=== PATIENT | female | born 1980 | race Caucasian/White ===

== ENCOUNTER 2017-01-20 11:53 | Day surgery (SDC) | payer MEDICARE, OTHER ==
[2017-01-17 11:42] VITALS: BMI 41.1
[~2017-01-20 11:53] MED LIST: LACTATED RINGERS 1,000 ML IV SCH
[2017-01-20] MEDS ORDERED: LIDOCAINE 1% 20 ML VIAL (10MG/ML) FOR IV START INTRADERMA ONE (12:08)
[2017-01-20] MEDS ORDERED: LACTATED RINGERS 1,000 ML IV ONE (12:08)
[2017-01-20 12:12] VITALS: RESP 18; TEMP 98
[2017-01-20] MEDS ORDERED: PROPOFOL 10 MG/ML 20 ML VIAL IV ONE (12:34)
[2017-01-20 12:56] VITALS: BP 131/78; PULSE 65
--- NOTE | 2017-01-20 13:00 | P.PCN ---
Date of Procedure: 01/20/17 Procedure(s) Performed: Procedure: Colonoscopy and biopsy. Preoperative diagnosis: Worsening diarrhea. Postoperative diagnosis: Exam of the colon and terminal ileum within normal limits. Preparation: HalfLytely prep. Sedation: Was provided by anesthesia. Brief clinical history: The patient is a 36-year-old female with history of irritable bowel syndrome with diarrhea. She was evaluated in our office earlier this month because of worsening of her symptoms. She has been having left lower quadrant pains, crampy in nature, intermittent over the day with 4-5 loose/watery bowel movements with urgency. No rectal bleeding. This evaluation is to assess for inflammatory bowel disease or other pathology. Procedure: With the patient on her left lateral decubitus position and after informed consent and adequate sedation, the perianal area was inspected and it did not show any fissures or fistulas. There were no masses felt on digital rectal examination. The Olympus CFQ 160L video colonoscope was then inserted in the rectum in the usual fashion and advanced to the cecum. I intubated the ileocecal valve and examined the terminal ileum. Terminal ileum and colon appeared healthy with no edema, erythema, friability, ulceration, exudation or spontaneous bleeding. No polyps or tumors were seen. No obvious diverticular disease. I obtained biopsies from the terminal ileum and right colon and then I retroflexed the endoscope in the rectum before it was withdrawn. The patient tolerated the procedure well. Plan: The patient was reassured. Will await biopsy results. She is scheduled to follow-up in the office in the next couple weeks and we would keep you updated on her progress.
== END 2017-01-20 13:28 | disposition home or self-care (01) ==
LOC: ORWHC2ENDO 11:53
DX: R19.7 Diarrhea, unspecified (principal); R10.32 Left lower quadrant pain; K21.9 Gastro-esophageal reflux disease without esophagitis; Z87.19 Personal history of other diseases of the digestive system; I10 Essential (primary) hypertension; Z72.0 Tobacco use; G40.909 Epilepsy, unspecified, not intractable, without status epilepticus; Z79.899 Other long term (current) drug therapy; Z88.8 Allergy status to other drugs, medicaments and biological substances
CPT/HCPCS: 81025; 88305; 45380; J2704

== ENCOUNTER → 2017-01-22 | Outpatient (CLI) | payer MEDICARE, OTHER ==
--- NOTE | 2017-01-23 07:21 | US ---
EXAMINATION TYPE: US thyroid st tissue head/neck DATE OF EXAM: 01/22/2017 4:48 PM COMPARISON: NONE CLINICAL HISTORY: Goiter E04.9. Pt states abnormal MRI at outside facility GLAND SIZE: Right Lobe: 6.3 x 1.3 x 2.3 cm Overall Parenchyma: heterogenous Left Lobe: 6.5 x 1.7 x 2.6 cm Overall Parenchyma: heterogeneous Isthmus Thickness: 0.4 cm NODULES RIGHT: # of nodules measured on right: 0 LEFT: # of nodules measured on left: 0 ISTHMUS: # of nodules measured in the isthmus: 0 Bilateral neck scanned, no evidence of lymphadenopathy. Heterogeneous gland bilaterally with no evidence of nodules bilaterally IMPRESSION: No discrete thyroid nodule.
== END | disposition home or self-care (01) ==
LOC: RADUSWWP 16:38
PROVIDERS: ATTEND Psychiatry & Neurology Neurology
DX: E04.9 Nontoxic goiter, unspecified (principal)
CPT/HCPCS: 76536

== ENCOUNTER 2017-09-23 14:05 | Emergency (ER) | payer MEDICARE, OTHER ==
[2017-09-23 14:17] VITALS: BP 135/92; PULSE 90; RESP 18; TEMP 98.7
--- NOTE | 2017-09-23 14:34 | XR ---
EXAMINATION TYPE: XR hand complete RT DATE OF EXAM: 09/23/2017 CLINICAL HISTORY: pain TECHNIQUE: Frontal, lateral and oblique images of the right hand are obtained. COMPARISON: None. FINDINGS: There is no acute fracture/dislocation evident. The joint spaces appear within normal limi ts. Moderate dorsal soft tissue swelling. IMPRESSION: There is no acute fracture or dislocation ICD 10 NO FRACTURE, INITIAL EVALUATION
--- NOTE | 2017-09-23 14:39 | ED ---
General Adult HPI - General Chief complaint: Extremity Injury, Upper Stated complaint: Hand Injury Time Seen by Provider: 09/23/17 14:19 Source: patient, RN notes reviewed Mode of arrival: ambulatory Limitations: no limitations - History of Present Illness Initial comments: patient 36-year-old female who presents emergency room today with a chief complaint of injury to the right hand that occurred yesterday. Patient does admit that the trunk was accidentally closed on her right hand. Patient states she is right-handed. Has had increased pain swelling to the area. Patient denies any other injury or complaint. Patient denies any recent fever, chills, shortness of breath, chest pain, back pain, abdominal pain, nausea or vomiting, numbness or tingling, headaches or visual changes, or any other complaints. - Related Data Home Medications Medication Instructions Recorded Confirmed Lisinopril [Prinivil] 10 mg PO HS 07/15/16 01/17/17 Lurasidone HCl [Latuda] 120 mg PO HS 07/15/16 01/17/17 ALPRAZolam [Xanax] 0.5 mg PO BID PRN 08/27/16 01/17/17 Butalb/APAP/Caff 50-325-40Mg 1 tab PO DAILY PRN 08/27/16 01/17/17 [Fioricet 50-325-40] lamoTRIgine [LaMICtal Xr] 200 mg PO HS 10/17/16 01/17/17 Dicyclomine [Bentyl] 20 mg PO QID 01/17/17 01/17/17 Omeprazole [PriLOSEC] 20 mg PO AC-BRKFST 01/17/17 01/17/17 Previous Rx's Medication Instructions Recorded Ibuprofen [Motrin] 800 mg PO Q6HR #30 tab 09/23/17 Allergies Allergy/AdvReac Type Severity Reaction Status Date / Time divalproex sodium Allergy Rash/Hives Verified 09/23/17 14:17 [From Depakote] cortisone AdvReac causes Verified 09/23/17 14:17 increased pain Review of Systems ROS Statement: Those systems with pertinent positive or pertinent negative responses have been documented in the HPI. ROS Other: All systems not noted in ROS Statement are negative. Past Medical History Past Medical History: Seizure Disorder Additional Past Medical History / Comment(s): migraines, pseudo tumors, lymes disease, stress seizure History of Any Multi-Drug Resistant Organisms: MRSA Date of last positivie culture/infection: 2001 MDRO Source:: head Past Surgical History: Section Additional Past Surgical History / Comment(s): right foot, right shoulder, Past Anesthesia/Blood Transfusion Reactions: Motion Sickness Past Psychological History: Anxiety, Bipolar Smoking Status: Current every day smoker Past Alcohol Use History: Occasional Past Drug Use History: None Reported - Past Family History Mother Family Medical History: No Reported History General Exam - General Exam Comments Initial Comments: General: The patient is awake and alert, in no distress, and does not appear acutely ill. Neck: The neck is supple, there is no tenderness or JVD. Cardiovascular: There is a regular rate and rhythm. No murmur, rub or gallop is appreciated. Respiratory: Lungs are clear to auscultation, respirations are non-labored, breath sounds are equal. No wheezes, stridor, rales, or rhonchi. Musculoskeletal: patient does have moderate swelling to the right hand. Tender to palpation over the first through fourth metacarpals. Sensation are intact. Shows decreased range motion due to pain. No tenderness to the right wrist. Tenderness down to the right digits. Neurological: A&O x 3. CN II-XII intact, There are no obvious motor or sensory deficits. Coordination appears grossly intact. Speech is normal. Skin: Skin is warm and dry and no rashes or lesions are noted. Psychiatric: Normal mood and affect. Limitations: no limitations Course Vital Signs 09/23/17 14:16 Temperature 98.7 F Pulse Rate 90 Respiratory 18 Rate Blood Pressure 135/92 O2 Sat by Pulse 98 Oximetry Medical Decision Making - Medical Decision Making x-rays negative for any acute fractures patient advised to continue to ice elevate and use for pain. Advised follow-up family doctor or orthopedics in 7- 10 days for repeat x-rays if symptoms persist. Advised return to emergency room if any symptoms increase or worsen or for Disposition Clinical Impression: Hand contusion Disposition: HOME SELF-CARE Condition: Good Instructions: Contusion in Adults (ED) Additional Instructions: Please continue to ice elevate the affected area as discussed. Please continue with ibuprofen for pain. Please return to emergency room symptoms increase or worsen. Please follow-up with family doctor or orthopedics for repeat x-rays in 7-10 days if symptoms persist. Prescriptions: Ibuprofen [Motrin] 800 mg PO Q6HR #30 tab Referrals: None,Stated [Primary Care Provider] - 1-2 days Bradly Ortiz MD [STAFF PHYSICIAN] - 1-2 days Time of Disposition: 14:37
== END 2017-09-23 14:46 | disposition home or self-care (01) ==
LOC: EC 14:05
DX: S60.221A Contusion of right hand, initial encounter (principal); F31.9 Bipolar disorder, unspecified; F17.200 Nicotine dependence, unspecified, uncomplicated; Z86.14 Personal history of Methicillin resistant Staphylococcus aureus infection; Z86.69 Personal history of other diseases of the nervous system and sense organs; Z79.899 Other long term (current) drug therapy; Z88.8 Allergy status to other drugs, medicaments and biological substances; W23.0XXA Caught, crushed, jammed, or pinched between moving objects, initial encounter
CPT/HCPCS: 99283

== ENCOUNTER 2019-01-30 14:45 | Inpatient (IN) | payer MEDICARE, MEDICAID ==
--- NOTE | 2019-01-30 15:03 | ED ---
General Adult HPI - General Chief complaint: Psychiatric Symptoms Stated complaint: Suicidal Time Seen by Provider: 01/30/19 14:45 Source: patient, RN notes reviewed Mode of arrival: ambulatory Limitations: no limitations - History of Present Illness Initial comments: This is a 38-year-old female who presents emergency Department with a past medical history significant for bipolar and fibromyalgia. Patient comes in stating for about the last week been much more depressed than normal. Patient states again thinking about suicide. Patient states in the past she has had multiple attempts of suicide and usually involving pills. Patient states she did not want to get to that point today and she did not take any pills did not do any alcohol and denies any illegal drugs. Patient states more recently she has lost her disability and also was turned down to have an supervise visits with her daughter and this time put him into a more depressed state. Patient denies any physical complaints today. Patient has any headache patient denies chest pain difficulty breathing shortness of breath. Patient denies any abdominal pain. Patient denies any nausea vomiting. Patient denies any fever chills. - Related Data Home Medications Medication Instructions Recorded Confirmed Lisinopril [Prinivil] 10 mg PO HS 07/15/16 01/17/17 Lurasidone HCl [Latuda] 120 mg PO HS 07/15/16 01/17/17 ALPRAZolam [Xanax] 0.5 mg PO BID PRN 08/27/16 01/17/17 Butalb/APAP/Caff 50-325-40Mg 1 tab PO DAILY PRN 08/27/16 01/17/17 [Fioricet 50-325-40] lamoTRIgine [LaMICtal Xr] 200 mg PO HS 10/17/16 01/17/17 Dicyclomine [Bentyl] 20 mg PO QID 01/17/17 01/17/17 Omeprazole [PriLOSEC] 20 mg PO AC-BRKFST 01/17/17 01/17/17 Previous Rx's Medication Instructions Recorded Ibuprofen [Motrin] 800 mg PO Q6HR #30 tab 09/23/17 Allergies Allergy/AdvReac Type Severity Reaction Status Date / Time divalproex sodium Allergy Rash/Hives Verified 01/30/19 15:57 [From Depakote] cortisone AdvReac causes Verified 01/30/19 15:57 increased pain Review of Systems ROS Statement: Those systems with pertinent positive or pertinent negative responses have been documented in the HPI. ROS Other: All systems not noted in ROS Statement are negative. Past Medical History Past Medical History: Seizure Disorder Additional Past Medical History / Comment(s): migraines, pseudo tumors, lymes disease, stress seizure History of Any Multi-Drug Resistant Organisms: MRSA Date of last positivie culture/infection: 2001 MDRO Source:: head Past Surgical History: Section Additional Past Surgical History / Comment(s): right foot, right shoulder, Past Anesthesia/Blood Transfusion Reactions: Motion Sickness Past Psychological History: Anxiety, Bipolar Smoking Status: Current every day smoker Past Alcohol Use History: Occasional Past Drug Use History: Marijuana - Past Family History Mother Family Medical History: No Reported History General Exam - General Exam Comments Initial Comments: GENERAL: Patient is well-developed and well-nourished. Patient is nontoxic and well- hydrated and is in no acute distress. ENT: Neck is soft and supple. No significant lymphadenopathy is noted. Oropharynx is clear. Moist mucous membranes. Neck has full range of motion without eliciting any pain. EYES: The sclera were anicteric and conjunctiva were pink and moist. Extraocular movements were intact and pupils were equal round and reactive to light. Eyelids were unremarkable. PULMONARY: Unlabored respirations. Good breath sounds bilaterally. No audible rales rhonchi or wheezing was noted. CARDIOVASCULAR: There is a regular rate and rhythm without any murmurs gallops or rubs. ABDOMEN: Soft and nontender with normal bowel sounds. SKIN: Skin is clear with no lesions or rashes and otherwise unremarkable. NEUROLOGIC: Patient is alert and oriented x3. Cranial nerves II through XII are grossly intact. Motor and sensory are also intact. Normal speech, volume and content. Symmetrical smile. MUSCULOSKELETAL: Normal extremities with adequate strength and full range of motion. PSYCHIATRIC: Normal psychiatric evaluation. Limitations: no limitations Course Vital Signs 01/30/19 14:46 Temperature 98.7 F Pulse Rate 84 Respiratory 18 Rate Blood Pressure 111/76 O2 Sat by Pulse 98 Oximetry Disposition Clinical Impression: Suicidal ideation, Depression Disposition: ADMITTED IP TO THIS HOSP Referrals: Jonathan Kulkarni MD [Primary Care Provider] - 1-2 days Time of Disposition: 15:59
[2019-01-30 16:05] LABS: Phencyclidine Screen,Urine Not Detected (NotDetected); Urn Cannabinoid Scrn Detected (NotDetected)
[2019-01-30 16:06] LABS: Amphetamine Screen,Urine Not Detected (NotDetected); Barbiturate Screen,Urine Detected (NotDetected); Benzodiazepines Screen,Urine Detected (NotDetected); Cocaine Screen,Urine Not Detected (NotDetected); Methadone Screen, Urine Not Detected (NotDetected); Opiate Screen,Urine Not Detected (NotDetected); Oxycodone Screen, Urine Not Detected (NotDetected); Tricyclic Antidepressant,Urine Detected (NotDetected)
[2019-01-30] MEDS ORDERED: MAG HYDROX/AL HYDROX/SIMETH 30 ML CUP PO PRN (16:11)
[2019-01-30] MEDS ORDERED: MAGNESIUM HYDROXIDE 2,400 MG/10 ML CUP PO PRN (16:11)
[2019-01-30] MEDS: ACETAMINOPHEN TAB 325 MG TAB PO PRN (16:57)
[2019-01-30] MEDS: LORazepam 1 MG TAB PO PRN (16:57)
[2019-01-30 17:28] VITALS: BMI 32.3
[2019-01-30] MEDS ORDERED: PROCHLORPERAZINE 5 MG TAB PO PRN (21:14)
[2019-01-30] MEDS: LACOSAMIDE 50 MG TABLET PO SCH (21:36)
[2019-01-30] MEDS: lamoTRIgine 100 MG TAB PO SCH (21:36)
[2019-01-30] MEDS: PREGABALIN 75 MG CAP PO SCH (21:37)
[2019-01-30] MEDS: traZODone HCL 50 MG TAB PO SCH (21:37)
[2019-01-31] MEDS: LORazepam 1 MG TAB PO PRN ×3 (04:04→21:31)
[2019-01-31] MEDS: ACETAMINOPHEN TAB 325 MG TAB PO PRN ×3 (04:04→21:31)
[2019-01-31] MEDS: PANTOPRAZOLE 40 MG TABLET PO SCH (08:17)
[2019-01-31] MEDS: LURASIDONE 80 MG TAB PO SCH (08:18)
[2019-01-31] MEDS: lamoTRIgine 100 MG TAB PO SCH ×2 (08:18→20:27)
[2019-01-31] MEDS: LACOSAMIDE 50 MG TABLET PO SCH ×2 (08:18→20:27)
[2019-01-31] MEDS: LISINOPRIL 5 MG TAB PO SCH (08:20)
[2019-01-31] MEDS: NICOTINE 14MG/24HR PATCH TRANSDERM SCH (08:22)
[2019-01-31] MEDS: PREGABALIN 75 MG CAP PO SCH ×2 (09:43→20:27)
[2019-01-31 10:03] LABS: Basophils % (A) 0 %; Eosinophils # (A) 0.2 k/uL (0-0.7); Eosinophils % (A) 3 %; HCT 36.2 % (34.0-46.0); HGB 12.1 gm/dL (11.4-16.0); Lymphocytes # (A) 1.8 k/uL (1.0-4.8); Lymphocytes % (A) 22 %; MCH 31.5 pg (25.0-35.0); MCHC 33.5 g/dL (31.0-37.0); MCV 93.9 fL (80.0-100.0); Mean Platelet Volume 9.5; Monocytes # (A) 0.3 k/uL (0-1.0); Monocytes % (A) 4 %; Neutrophils # (A) 5.8 k/uL (1.3-7.7); Neutrophils % (A) 71 %; Platelet Count 184 k/uL (150-450); RBC 3.85 m/uL (3.80-5.40); RDW 14.2 % (11.5-15.5); WBC 8.3 k/uL (3.8-10.6)
[2019-01-31 10:21] LABS: Albumin 4.2 g/dL (3.5-5.0); Calcium 9.5 mg/dL (8.4-10.2); Potassium 4.2 mmol/L (3.5-5.1); Total Bilirubin 0.3 mg/dL (0.2-1.3)
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
[2019-01-31] MEDS: traZODone HCL 50 MG TAB PO SCH (20:27)
[2019-02-01] MEDS: PANTOPRAZOLE 40 MG TABLET PO SCH (08:44)
[2019-02-01] MEDS: lamoTRIgine 100 MG TAB PO SCH ×2 (08:44→20:05)
[2019-02-01] MEDS: PREGABALIN 75 MG CAP PO SCH ×2 (08:44→20:05)
[2019-02-01] MEDS: LACOSAMIDE 50 MG TABLET PO SCH ×2 (08:44→20:05)
[2019-02-01] MEDS: LURASIDONE 80 MG TAB PO SCH (08:45)
[2019-02-01] MEDS: NICOTINE 14MG/24HR PATCH TRANSDERM SCH (08:47)
[2019-02-01] MEDS: LISINOPRIL 5 MG TAB PO SCH (08:49)
[2019-02-01] MEDS: ACETAMINOPHEN TAB 325 MG TAB PO PRN (08:50)
[2019-02-01] MEDS: LORazepam 1 MG TAB PO PRN ×2 (08:50→17:02)
[2019-02-01] MEDS ORDERED: SUMAtriptan SUCCINATE 6 MG/0.5 ML VIAL SQ PRN ×3 (09:35→10:36)
[2019-02-01 09:39] LABS: Urine Alcohol Negative (Negative); Urine Barbiturate Positive (Negative); Urine Cocaine Negative (Negative); Urine Methadone Negative (Negative); Urine Opiates Negative (Negative); Urine Phencyclidine Negative (Negative)
--- NOTE | 2019-02-01 09:44 | P.CONS ---
History of Present Illness - Reason for Consult Consult date: 02/01/19 - History of Present Illness This 38-year-old white female with a history of bipolar depression. She been having more problems with her daughter and was admitted for suicidal thoughts with a plan. I'm seeing her for medical consultation regarding her migraine headaches and neck pain. She has a history of fibromyalgia as well. She reports that she's been having migraine headache for the past 2 days since she's been here. The oral Imitrex typically does not work. She usually uses injectable. She also is complaining of spasms in her neck and ongoing neck pain, which is a chronic complaint for her. She denies any chest pains, pressures, shortness of breath, nausea or vomiting. She is tolerating a regular diet. Indicating she is able to have caffeine as needed here. Review of Systems All systems: negative Past Medical History Past Medical History: Neurologic Disorder (Migraines), Seizure Disorder Additional Past Medical History / Comment(s): h/o lymes disease? h/o pseudotumor cerebri? History of Any Multi-Drug Resistant Organisms: MRSA Year Discovered:: 2001 MDRO Source:: head Past Surgical History: Section Additional Past Surgical History / Comment(s): right foot, right shoulder, Past Anesthesia/Blood Transfusion Reactions: Motion Sickness Past Psychological History: Anxiety, Bipolar Smoking Status: Current every day smoker Past Alcohol Use History: Occasional Past Drug Use History: Marijuana Additional Drug Use History / Comment(s): denies use of methamphetamine - Past Family History Mother Family Medical History: No Reported History Medications and Allergies Home Medications Medication Instructions Recorded Confirmed Type Butalb/APAP/Caff 50-325-40Mg 1 tab PO Q6H PRN 08/27/16 01/30/19 History [Fioricet 50-325-40] lamoTRIgine [LaMICtal Xr] 200 mg PO HS 10/17/16 01/30/19 History Omeprazole [PriLOSEC] 20 mg PO AC-BRKFST 01/17/17 01/30/19 History Lacosamide [Vimpat] 200 mg PO BID 01/30/19 01/30/19 History Lisinopril [Zestril] 5 mg PO DAILY 01/30/19 01/30/19 History Lurasidone [Latuda] 80 mg PO DAILY 01/30/19 01/30/19 History Pregabalin [Lyrica] 150 mg PO BID 01/30/19 01/30/19 History Prochlorperazine [Compazine] 5 mg PO BID PRN 01/30/19 01/30/19 History traZODone HCL 150 mg PO HS 01/30/19 01/30/19 History Allergies Allergy/AdvReac Type Severity Reaction Status Date / Time divalproex sodium Allergy Vomiting Verified 01/30/19 17:03 [From Depakote] cortisone AdvReac causes Verified 01/30/19 17:03 increased pain Physical Exam Vitals: Vital Signs Temp Pulse Pulse Resp BP BP 02/01/19 08:48 75 16 96/52 02/01/19 05:53 65 16 105/66 02/01/19 05:00 76 80/56 02/01/19 00:21 97.8 F 79 16 95/51 01/31/19 20:29 71 118/57 Intake and Output 01/31/19 02/01/19 02/01/19 22:59 06:59 14:59 Other: Weight 92.8 kg GENERAL: Tearful and it point actively crying during the examination. She is slightly obese HEAD: Atraumatic, normocephalic. EYES: Pupils equal round and reactive to light, extraocular movements intact, sclera anicteric, conjunctiva are normal. ENT:nares patent, oropharynx clear without exudates. Moist mucous membranes. NECK:range of motion deferred, supple without lymphadenopathy or JVD, no thyromegaly, there is pain to palpation in the posterior aspect of the base of skull to T1 LUNGS: Breath sounds clear to auscultation bilaterally and equal. No wheezes rales or rhonchi. HEART: Regular rate and rhythm without murmurs, rubs or gallops.S1S2 Normal ABDOMEN: Soft, nontender, normoactive bowel sounds. No guarding, no rebound. No masses appreciated. EXTREMITIES: Normal range of motion, no pitting or edema. No clubbing or cyanosis. NEUROLOGICAL: Cranial nerves II through XII grossly intact. Normal speech, normal gait. PSYCH: Saddened mood, normal affect. SKIN: Warm, Dry, normal turgor, no rashes or lesions noted. Results CBC & Chem 7: 01/31/19 09:17 01/31/19 09:17 Labs: Abnormal Lab Results - Last 24 Hours (Table) 01/31/19 Range/Units 09:17 AST 13 L (14-36) U/L Triglycerides 194 H (<150) mg/dL Cholesterol 253 H (<200) mg/dL LDL Cholesterol, Calc 175 H (0-99) mg/dL HDL Cholesterol 39 L (40-60) mg/dL Assessment and Plan (1) Migraine Current Visit: No Status: Acute Code(s): G43.909 - MIGRAINE, UNSP, NOT INTRACTABLE, WITHOUT STATUS MIGRAINOSUS SNOMED Code(s): 09952119 (2) Cervicalgia Current Visit: Yes Status: Acute Code(s): M54.2 - CERVICALGIA SNOMED Code(s): 31044965 (3) Muscle spasm Current Visit: Yes Status: Acute Code(s): M62.838 - OTHER MUSCLE SPASM SNOMED Code(s): 34099460 (4) Abnormal drug screen Current Visit: Yes Status: Acute Code(s): R89.2 - ABN LEV DRUG/MEDS/BIOL SUBST IN SPECIMENS FROM OTH ORG/TISS SNOMED Code(s): 193139734 (5) Depression Current Visit: Yes Status: Acute Code(s): F32.9 - MAJOR DEPRESSIVE DISORDER, SINGLE EPISODE, UNSPECIFIED SNOMED Code(s): 32876719 (6) Suicidal ideation Current Visit: Yes Status: Acute Code(s): R45.851 - SUICIDAL IDEATIONS SNOMED Code(s): 8474552 Plan: I will order Imitrex injections, 6 mg daily as needed, and restart her Flexeril for muscle spasm. Not aware of any injury having any major drug dependency issues other than marijuana use. Her positive methamphetamine in her urine is i nconsistent with my knowledge of the patient. However polysubstance abuse as well as possibility. I will reevaluate her as needed. Thank you for allowing me to participate in her care.
[2019-02-01] MEDS ORDERED: SUMAtriptan SUCCINATE 50 MG TAB PO PRN (10:15)
[2019-02-01 10:25] LABS: Hemoglobin A1C 5.2 % (4.0-6.0)
--- NOTE | 2019-02-01 10:53 | P.PN ---
Progress Note - Text Interval history: The patient is found in her room she follows me to an interview room. She indicates her mood is depressed. She reports being tearful on a regular basis. She reports experiencing significant migraine cephalgia. She describes having pain related to her fibromyalgia. She reports difficulty sleeping at night staff reported she slept only 2-3 hours. She feels the trazodone is ineffective. We discussed nonaddictive alternatives to trazodone. We were able to call her local pharmacy and she has also been prescribed Cymbalta 60 mg daily for depression. We discussed our options in terms of titrating the dose or switching the medication. After risks and benefits were discussed she decided she would prefer to have the dosage increased. She indicates she had a pleasant visit from her family last evening. Mental status exam: The patient is a female presenting stated age. She has a disheveled appearance she stressor own clothing hygiene is adequate. She describes a depressed and hopeless mood she is tearful throughout the session. He maintains a dysphoric affect. She reports suicidal ideation. No homicidal ideation reported. She describes no auditory or visual hallucinations or any specific delusions. There is no observed evidence of psychosis. Thought process is linear she demonstrates no hypomanic or manic qualities. Insight and judgment limited. Plan: The patient will be restarted on her Cymbalta and we will titrate the dose to 90 mg daily, trazodone will be discontinued we will initiate doxepin 10 mg at bedtime. She will continue on Latuda and Lamictal as written as she finds those helpful. She is instructed to fully participate in the milieu she is educated in terms of sleep hygiene. We will continue to monitor her for safety vital signs reviewed. She has been seen by her internal medicine physician who has prescribed Imitrex and Flexeril.
[2019-02-01] MEDS: DULoxetine HCL 30 MG CAPSULE.DR PO SCH (12:08)
[2019-02-01] MEDS: IBUPROFEN 800 MG TAB PO PRN ×2 (12:11→20:07)
[2019-02-01] MEDS: CYCLOBENZAPRINE 5 MG TAB PO PRN ×2 (12:39→20:08)
[2019-02-01] MEDS: DOXEPIN 10 MG CAP PO SCH (20:45)
[2019-02-01] MEDS: acetaZOLAMIDE 250 MG TAB PO SCH (20:45)
[2019-02-02] MEDS: LORazepam 1 MG TAB PO PRN ×3 (01:31→17:44)
[2019-02-02] MEDS: CYCLOBENZAPRINE 5 MG TAB PO PRN ×3 (01:31→18:46)
[2019-02-02] MEDS: IBUPROFEN 800 MG TAB PO PRN ×2 (05:05→17:43)
[2019-02-02] MEDS: acetaZOLAMIDE 250 MG TAB PO SCH ×2 (07:58→21:27)
[2019-02-02] MEDS: PREGABALIN 75 MG CAP PO SCH ×2 (07:58→21:28)
[2019-02-02] MEDS: DULoxetine HCL 30 MG CAPSULE.DR PO SCH (07:58)
[2019-02-02] MEDS: LACOSAMIDE 50 MG TABLET PO SCH ×2 (07:58→21:28)
[2019-02-02] MEDS: lamoTRIgine 100 MG TAB PO SCH ×2 (07:58→21:28)
[2019-02-02] MEDS: PANTOPRAZOLE 40 MG TABLET PO SCH (07:59)
[2019-02-02] MEDS: LISINOPRIL 5 MG TAB PO SCH (07:59)
[2019-02-02] MEDS: LURASIDONE 80 MG TAB PO SCH (08:00)
[2019-02-02] MEDS: NICOTINE 14MG/24HR PATCH TRANSDERM SCH (08:01)
--- NOTE | 2019-02-02 10:19 | P.PN ---
Progress Note - Text Interval history: The patient is found in the hallway she follows me to an interview room. She reports difficulty sleeping. She admits that she did again nap during the day as she had a migraine headache. She has no questions or concerns regarding her psychotropic medication. She has not been attending groups that she states they provide no value to her. We discussed that further as they could increase her socialization and help with coping skill development. Overall she reports feeling better today in terms of mood. Mental status exam: The patient is alert she is dressed in her own clothing hygiene grooming adequate. Eye contact is appropriate. She maintains a bland affect but states her mood is better. She reports feeling safe in the hospital in terms of suicidal thoughts. No homicidal ideation intent or plan. She is reporting no auditory or visual hallucinations or any specific delusions. She indicates she feels tired. She demonstrates no tangential thinking loose associations or flight of ideas. She does not appear hypomanic or manic. Insight and judgment slowly improving. She demonstrates no involuntary repetitive movements. She remains oriented to person place and date. Plan: The patient is just starting to report some improvement of mood. We will monitor her further. She is encouraged to participate in the milieu although she is resistant. She has been socializing with peers and playing cards. Vital signs reviewed. We will review her progress during treatment team meeting.
[2019-02-02] MEDS: MELATONIN 3 MG TABLET PO SCH (21:28)
[2019-02-02] MEDS: DOXEPIN 10 MG CAP PO SCH (22:54)
[2019-02-03] MEDS: LORazepam 1 MG TAB PO PRN ×2 (02:28→10:54)
[2019-02-03] MEDS: IBUPROFEN 800 MG TAB PO PRN ×2 (02:28→10:53)
[2019-02-03] MEDS: CYCLOBENZAPRINE 5 MG TAB PO PRN ×2 (02:31→10:52)
[2019-02-03] MEDS: DULoxetine HCL 30 MG CAPSULE.DR PO SCH (07:48)
[2019-02-03] MEDS: acetaZOLAMIDE 250 MG TAB PO SCH ×2 (07:48→21:08)
[2019-02-03] MEDS: LACOSAMIDE 50 MG TABLET PO SCH ×2 (07:48→21:08)
[2019-02-03] MEDS: PANTOPRAZOLE 40 MG TABLET PO SCH (07:48)
[2019-02-03] MEDS: PREGABALIN 75 MG CAP PO SCH ×3 (07:48→21:08)
[2019-02-03] MEDS: LISINOPRIL 5 MG TAB PO SCH ×2 (07:48→09:42)
[2019-02-03] MEDS: LURASIDONE 80 MG TAB PO SCH (07:49)
[2019-02-03] MEDS: lamoTRIgine 100 MG TAB PO SCH ×2 (07:49→21:08)
[2019-02-03] MEDS: NICOTINE 14MG/24HR PATCH TRANSDERM SCH (07:51)
--- NOTE | 2019-02-03 10:53 | P.PN ---
Progress Note - Text Interval history: The patient is found in the hallway she follows me to an interview room. She indicates that her mood continues to improve. She has no questions or concerns regarding her medication. She reports she has been attending group. She indicates that her mother can participate in a support meeting. Mental status exam: The patient is alert she is dressed room clothing hygiene grooming adequate. Speech is fluent spontaneous nonpressured. She indicates her mood is improving she is reporting no acute suicidal ideation intent or plan. No homicidal ideation. She is reporting no auditory or visual hallucinations or any specific delusions. There is no observed evidence of psychosis. She does not appear hypomanic or manic. Insight and judgment improving. Affect is brighter. She is oriented to person place and date. Plan: The patient is clinically stabilizing we will anticipate a discharge tomorrow. Social work will be asked to arrange a support meeting most likely involving her mother. Vital signs reviewed. She is encouraged to fully participate in milieu and we will continue to monitor for safety.
[2019-02-03] MEDS: DOXEPIN 10 MG CAP PO SCH (21:08)
[2019-02-03] MEDS: MELATONIN 3 MG TABLET PO SCH (21:08)
[2019-02-04] MEDS: IBUPROFEN 800 MG TAB PO PRN ×2 (00:45→10:41)
[2019-02-04] MEDS: CYCLOBENZAPRINE 5 MG TAB PO PRN ×2 (00:45→10:39)
[2019-02-04] MEDS: LORazepam 1 MG TAB PO PRN (00:46)
[2019-02-04 00:48] VITALS: BP 127/60; PULSE 72; RESP 16; TEMP 97.7
[2019-02-04] MEDS: lamoTRIgine 100 MG TAB PO SCH (09:00)
[2019-02-04] MEDS: PREGABALIN 75 MG CAP PO SCH (09:00)
[2019-02-04] MEDS: PANTOPRAZOLE 40 MG TABLET PO SCH (09:00)
[2019-02-04] MEDS: DULoxetine HCL 30 MG CAPSULE.DR PO SCH (09:00)
[2019-02-04] MEDS: NICOTINE 14MG/24HR PATCH TRANSDERM SCH ×2 (09:01→10:57)
[2019-02-04] MEDS: LACOSAMIDE 50 MG TABLET PO SCH (09:01)
[2019-02-04] MEDS: LURASIDONE 80 MG TAB PO SCH (09:27)
[2019-02-04] MEDS: acetaZOLAMIDE 250 MG TAB PO SCH (09:28)
[2019-02-04] MEDS: LISINOPRIL 5 MG TAB PO SCH (09:29)
--- NOTE | 2019-02-04 10:50 | P.DS ---
Providers Date of admission: 01/30/19 16:03 Expected date of discharge: 02/04/19 Attending physician: Zuhair Coleman Consults: 01/30/19 16:11 Consult Physician Routine Consulting Provider: Jonathan Kulkarni Consult Reason/Comments: medical consult Do you want consulting provider notified?: Yes, Notify in am Primary care physician: Jonathan Kulkarni - Discharge Diagnosis(es) (1) Bipolar II disorder, mild, depressed, with anxious distress Current Visit: Yes Status: Acute Priority: High (2) Cannabis use disorder, mild, abuse Current Visit: Yes Status: Acute Priority: Medium Hospital Course: Brief summary of admission note: This patient is a 38-year-old single female who was admitted to the mental health unit with suicidal ideation. The patient presented with suicidal thoughts and a plan of overdosing with medications. She reports she felt worthless hopeless and was especially anxious. Sleep and appetite had been diminished energy level was low. She foun d herself tearful on a regular basis and she was experiencing feelings of guilt as her mother was financially supporting her. A recent stressor was the loss of her disability income. For full details please refer to the psychiatric evaluation dated 01/31/2019. Summary of hospital course: The patient was admitted to the mental health unit voluntarily. We reviewed her presenting symptoms and treatment options. In terms of medication we decided to titrate her Cymbalta to 90 mg daily. She was continued on her other psychotropic medications including Lamictal and Latuda. Doxepin was added for sleep at night. The patient was seen by her primary care physician for routine history and physical exam. She met with social work to complete a psychosocial assessment and for discharge planning purposes. Social work will arrange a support meeting to occur prior to discharge today. The patient has reported a progressive improvement of symptoms while here she reports that her suicidal ideation has resolved. She reports she is willing to continue following up with outpatient mental health services. She does not feel that she requires inpatient chemical dependency treatment. Mental status exam: The patient is a female appearing her stated age. She is dressed in her own clothing eye contact is appropriate. Hygiene grooming adequate. Speech is fluent spontaneous nonpressured. She reports her mood is good she denies having any suicidal or homicidal ideation intent or plan. She states she does not feel hopeless. She reports no auditory or visual hallucinations or any specific delusions and there is no observed evidence of psychosis. She demonstrates no tangential thinking loose associations or flight of ideas. She does not appear hypomanic or manic. Insight and judgment grossly intact. She is oriented to person place and date. She demonstrates no involuntary repetitive movements. Impressions 1. Bipolar 2 disorder most recent depressed, anxiety unspecified, cannabis use disorder, rule out benzodiazepine cocaine and methamphetamine opiate use disorders 2. Cluster B traits Plan: The patient will be discharged mental health unit today following the s upport meeting. The patient will follow-up with mental health services as arranged by social work. She will continue on Cymbalta 90 mg daily, Lamictal 100 mg twice daily, Latuda 80 mg daily, doxepin 10 mg at bedtime as needed. She is instructed to abstain from any use of alcohol marijuana or any illicit drugs. We discussed that these will exacerbate her symptoms an elevator safety risk. She does not feel that she requires inpatient chemical dependency treatment to address those issues. At this time there is no imminent safety risk she is appropriate for transition to outpatient care. She is instructed to return to the hospital any acute safety concerns. Patient Condition at Discharge: Stable Plan - Discharge Summary Discharge Rx Participant: No New Discharge Prescriptions: New DULoxetine HCL [Cymbalta] 90 mg PO DAILY #45 capsule. Cyclobenzaprine [Flexeril] 5 mg PO TID PRN tab PRN Reason: Muscle Spasm Nicotine 14Mg/24Hr Patch [Habitrol] 1 patch TRANSDERM DAILY #14 patch lamoTRIgine [LaMICtal] 100 mg PO BID #60 tab Doxepin [SINEquan] 10 mg PO HS #30 cap Continue Butalb/APAP/Caff 50-325-40Mg [Fioricet 50-325-40] 1 tab PO Q6H PRN PRN Reason: Migraine Headache Omeprazole [PriLOSEC] 20 mg PO AC-BRKFST Prochlorperazine [Compazine] 5 mg PO BID PRN PRN Reason: Nausea Pregabalin [Lyrica] 150 mg PO BID Lisinopril [Zestril] 5 mg PO DAILY Lacosamide [Vimpat] 200 mg PO BID Lurasidone [Latuda] 80 mg PO DAILY #30 tab Discontinued lamoTRIgine [LaMICtal Xr] 200 mg PO HS traZODone HCL 150 mg PO HS Discharge Medication List Butalb/APAP/Caff 50-325-40Mg [Fioricet 50-325-40] 1 tab PO Q6H PRN 08/27/16 [History] Omeprazole [PriLOSEC] 20 mg PO AC-BRKFST 01/17/17 [History] Lacosamide [Vimpat] 200 mg PO BID 01/30/19 [History] Lisinopril [Zestril] 5 mg PO DAILY 01/30/19 [History] Pregabalin [Lyrica] 150 mg PO BID 01/30/19 [History] Prochlorperazine [Compazine] 5 mg PO BID PRN 01/30/19 [History] Cyclobenzaprine [Flexeril] 5 mg PO TID PRN tab 02/04/19 [Rx] DULoxetine HCL [Cymbalta] 90 mg PO DAILY #45 capsule. 02/04/19 [Rx] Doxepin [SINEquan] 10 mg PO HS #30 cap 02/04/19 [Rx] Lurasidone [Latuda] 80 mg PO DAILY #30 tab 02/04/19 [Rx] Nicotine 14Mg/24Hr Patch [Habitrol] 1 patch TRANSDERM DAILY #14 patch 02/04/19 [Rx] lamoTRIgine [LaMICtal] 100 mg PO BID #60 tab 02/04/19 [Rx] Follow up Appointment(s)/Referral(s): Jonathan Kulkarni MD [Primary Care Provider] - 1-2 days
== END 2019-02-04 13:50 | disposition home or self-care (01) | DRG 885 ==
LOC: EC 14:45 → 3MHU 16:03
PROVIDERS: ADMIT Psychiatry & Neurology Psychiatry; ATTEND Psychiatry & Neurology Psychiatry
DX: F31.81 Bipolar II disorder (principal); R45.851 Suicidal ideations; G40.909 Epilepsy, unspecified, not intractable, without status epilepticus; E66.3 Overweight; F12.90 Cannabis use, unspecified, uncomplicated; F14.90 Cocaine use, unspecified, uncomplicated; F19.90 Other psychoactive substance use, unspecified, uncomplicated; F15.90 Other stimulant use, unspecified, uncomplicated; F17.200 Nicotine dependence, unspecified, uncomplicated; F60.89 Other specific personality disorders; G43.909 Migraine, unspecified, not intractable, without status migrainosus; I10 Essential (primary) hypertension; K21.9 Gastro-esophageal reflux disease without esophagitis; M79.7 Fibromyalgia; F41.9 Anxiety disorder, unspecified; M54.2 Cervicalgia; M62.838 Other muscle spasm; G89.29 Other chronic pain; Z68.33 Body mass index [BMI] 33.0-33.9, adult; Z79.899 Other long term (current) drug therapy; Z86.19 Personal history of other infectious and parasitic diseases; Z91.5 Personal history of self-harm; Z88.8 Allergy status to other drugs, medicaments and biological substances; Z86.14 Personal history of Methicillin resistant Staphylococcus aureus infection
CPT/HCPCS: 80053; 80061; 80306; 82075; 83036; 84443; 85025; 99285

== ENCOUNTER 2019-02-15 13:40 | Inpatient (IN) | payer MEDICARE, MEDICAID ==
[2019-02-15 14:57] LABS: Amphetamine Screen,Urine Not Detected (NotDetected); Barbiturate Screen,Urine Not Detected (NotDetected); Benzodiazepines Screen,Urine Detected (NotDetected); Cocaine Screen,Urine Not Detected (NotDetected); Methadone Screen, Urine Not Detected (NotDetected); Opiate Screen,Urine Not Detected (NotDetected); Oxycodone Screen, Urine Not Detected (NotDetected); Phencyclidine Screen,Urine Not Detected (NotDetected); Tricyclic Antidepressant,Urine Detected (NotDetected); Urn Cannabinoid Scrn Detected (NotDetected)
--- NOTE | 2019-02-15 15:30 | ED ---
Psych HPI - General Chief Complaint: Psychiatric Symptoms Stated Complaint: Mental Health Time Seen by Provider: 02/15/19 14:27 Source: patient, RN notes reviewed Mode of arrival: ambulatory Limitations: no limitations - History of Present Illness Initial Comments: 38-year-old female presents emergency Department for psychiatric evaluation. Patient states she was recently discharged from [address] [place] [address] for 4 days inpatient stay. Patient that she went home she has been isolating herself, plan to overdose on pills. Patient states she is severely depressed. Patient denies alcohol abuse states she does use marijuana. Patient offers no other complaints. Denies any physical complaints. - Related Data Home Medications Medication Instructions Recorded Confirmed Butalb/APAP/Caff 50-325-40Mg 1 tab PO Q6H PRN 08/27/16 02/15/19 [Fioricet 50-325-40] Omeprazole [PriLOSEC] 20 mg PO AC-BRKFST 01/17/17 02/15/19 Lacosamide [Vimpat] 200 mg PO BID 01/30/19 02/15/19 Lisinopril [Zestril] 5 mg PO DAILY 01/30/19 02/15/19 Pregabalin [Lyrica] 150 mg PO BID 01/30/19 02/15/19 Prochlorperazine [Compazine] 5 mg PO BID PRN 01/30/19 02/15/19 Nortriptyline [Pamelor] 25 mg PO DAILY 02/15/19 02/15/19 Previous Rx's Medication Instructions Recorded Cyclobenzaprine [Flexeril] 5 mg PO TID PRN tab 02/04/19 DULoxetine HCL [Cymbalta] 90 mg PO DAILY #45 capsule. 02/04/19 Doxepin [SINEquan] 10 mg PO HS #30 cap 02/04/19 Lurasidone [Latuda] 80 mg PO DAILY #30 tab 02/04/19 lamoTRIgine [LaMICtal] 100 mg PO BID #60 tab 02/04/19 Allergies Allergy/AdvReac Type Severity Reaction Status Date / Time divalproex sodium Allergy Vomiting Verified 02/15/19 14:53 [From Depakote] cortisone AdvReac causes Verified 02/15/19 14:53 increased pain Review of Systems ROS Statement: Those systems with pertinent positive or pertinent negative responses have been documented in the HPI. ROS Other: All systems not noted in ROS Statement are negative. Past Medical History Past Medical History: Neurologic Disorder, Seizure Disorder Additional Past Medical History / Comment(s): h/o lymes disease? h/o ps eudotumor cerebri? History of Any Multi-Drug Resistant Organisms: MRSA Date of last positivie culture/infection: 2001 MDRO Source:: head Past Surgical History: Section, Orthopedic Surgery Additional Past Surgical History / Comment(s): right foot, right shoulder, Past Anesthesia/Blood Transfusion Reactions: Motion Sickness Past Psychological History: Anxiety, Bipolar Smoking Status: Current every day smoker Past Alcohol Use History: Occasional Past Drug Use History: Marijuana - Past Family History Mother Family Medical History: No Reported History General Exam Limitations: no limitations General appearance: alert, in no apparent distress Head exam: Present: atraumatic, normocephalic, normal inspection Eye exam: Present: normal appearance, PERRL, EOMI. Absent: scleral icterus, conjunctival injection, periorbital swelling ENT exam: Present: normal exam, normal oropharynx, mucous membranes moist Neck exam: Present: normal inspection, full ROM. Absent: tenderness, meningismus, lymphadenopathy Respiratory exam: Present: normal lung sounds bilaterally. Absent: respiratory distress, wheezes, rales, rhonchi, stridor Cardiovascular Exam: Present: regular rate, normal rhythm, normal heart sounds. Absent: systolic murmur, diastolic murmur, rubs, gallop, clicks Neurological exam: Present: alert, oriented X3, CN II-XII intact Psychiatric exam: Present: depressed Course Vital Signs 02/15/19 14:11 Temperature 98.2 F Pulse Rate 79 Respiratory 18 Rate Blood Pressure 101/71 O2 Sat by Pulse 97 Oximetry Medical Decision Making - Medical Decision Making Patient was evaluated by EPS and will be admitted to mental health unit. - Lab Data Lab Results 02/15/19 Range/Units Unknown Urine Opiates Screen Not Detected (NotDetected) Ur Oxycodone Screen Not Detected (NotDetected) Urine Methadone Screen Not Detected (NotDetected) Ur Propoxyphene Screen Not Detected (NotDetected) Ur Barbiturates Screen Not Detected (NotDetected) U Tricyclic Antidepress Detected H (NotDetected) Ur Phencyclidine Scrn Not Detected (NotDetected) Ur Amphetamines Screen Not Detected (NotDetected) U Methamphetamines Scrn Not Detected (NotDetected) U Benzodiazepines Scrn Detected H (NotDetected) Urine Cocaine Screen Not Detected (NotDetected) U Marijuana (THC) Screen Detected H (NotDetected) Disposition Clinical Impression: Suicidal ideation, Depression, Bipolar II disorder, mild, depressed, with anxious distress Disposition: TRANSFER TO PSYCH HOSP/UNIT Referrals: Jonathan Kulkarni MD [Primary Care Provider] - 1-2 days
[2019-02-15] MEDS ORDERED: MAG HYDROX/AL HYDROX/SIMETH 30 ML CUP PO PRN (17:27)
[2019-02-15] MEDS ORDERED: MAGNESIUM HYDROXIDE 2,400 MG/10 ML CUP PO PRN (17:27)
[2019-02-15] MEDS ORDERED: LORazepam 2 MG/ML INJ IM PRN (17:32)
[2019-02-15] MEDS: NICOTINE 14MG/24HR PATCH TRANSDERM SCH (18:48)
[2019-02-15] MEDS: LORazepam 1 MG TAB PO PRN (19:17)
[2019-02-15] MEDS ORDERED: DOXEPIN 10 MG CAP PO SCH (21:00)
[2019-02-15] MEDS: PREGABALIN 75 MG CAP PO SCH (21:27)
[2019-02-15] MEDS: lamoTRIgine 100 MG TAB PO SCH (21:27)
[2019-02-15] MEDS: LACOSAMIDE 150 MG TABLET PO SCH (21:28)
[2019-02-15] MEDS: LACOSAMIDE 50 MG TABLET PO SCH (21:28)
[2019-02-16] MEDS: ZIPRASIDONE 20 MG VIAL IM PRN ×2 (01:33→18:54)
[2019-02-16] MEDS: LURASIDONE 80 MG TAB PO SCH (07:59)
[2019-02-16] MEDS: PANTOPRAZOLE 40 MG TABLET PO SCH (08:00)
[2019-02-16] MEDS: NORTRIPTYLINE 25 MG CAP PO SCH (08:00)
[2019-02-16] MEDS: LISINOPRIL 5 MG TAB PO SCH (08:01)
[2019-02-16] MEDS: lamoTRIgine 100 MG TAB PO SCH ×2 (08:01→20:39)
[2019-02-16] MEDS: PREGABALIN 75 MG CAP PO SCH ×2 (08:01→20:39)
[2019-02-16] MEDS: LACOSAMIDE 50 MG TABLET PO SCH ×2 (08:01→20:39)
[2019-02-16] MEDS: LORazepam 1 MG TAB PO PRN ×3 (08:02→15:38)
[2019-02-16] MEDS ORDERED: DULoxetine HCL 30 MG CAPSULE.DR PO SCH (09:00)
[2019-02-16] MEDS: NICOTINE 14MG/24HR PATCH TRANSDERM SCH (09:00)
[2019-02-16] MEDS ORDERED: LACOSAMIDE 50 MG TABLET PO ONE (09:15)
[2019-02-16] MEDS: LACOSAMIDE 150 MG TABLET PO SCH (10:10)
[2019-02-16 11:37] LABS: Albumin 3.9 g/dL (3.5-5.0); Calcium 9.5 mg/dL (8.4-10.2); Potassium 4.9 mmol/L (3.5-5.1); Total Bilirubin 0.3 mg/dL (0.2-1.3); Total Protein 6.5 g/dL (6.3-8.2)
[2019-02-16 11:57] LABS: Basophils % (A) 0 %; Eosinophils # (A) 0.2 k/uL (0-0.7); Eosinophils % (A) 3 %; HCT 38.5 % (34.0-46.0); Hypochromasia Slight; Lymphocytes # (A) 1.7 k/uL (1.0-4.8); Lymphocytes % (A) 26 %; MCH 30.9 pg (25.0-35.0); MCHC 31.1 g/dL (31.0-37.0); Mean Platelet Volume 8.9; Monocytes # (A) 0.2 k/uL (0-1.0); Monocytes % (A) 4 %; Neutrophils # (A) 4.2 k/uL (1.3-7.7); Neutrophils % (A) 65 %; Platelet Count 250 k/uL (150-450); RBC 3.87 m/uL (3.80-5.40); RDW 13.8 % (11.5-15.5); WBC 6.5 k/uL (3.8-10.6)
[2019-02-16 12:02] LABS: MCV 99.6 fL (80.0-100.0)
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
--- NOTE | 2019-02-16 14:30 | XR ---
EXAMINATION TYPE: XR hand complete RT DATE OF EXAM: 02/16/2019 CLINICAL HISTORY: pain TECHNIQUE: Frontal, lateral and oblique images of the right hand are obtained. COMPARISON: None. FINDINGS: There is no acute fracture/dislocation evident. The joint spaces appear within normal limi ts. Dorsal soft tissue swelling noted. IMPRESSION: There is no acute fracture or dislocation ICD 10 NO FRACTURE, INITIAL EVALUATION
--- NOTE | 2019-02-16 14:53 | P.CONS ---
History of Present Illness - Reason for Consult Consult date: 02/16/19 - History of Present Illness This 38-year-old white female with a history of bipolar depression. She was admitted for depression, suicidal thoughts with a plan. I'm seeing her for medical consultation regarding her migraine headaches She has a history of fibromyalgia as well. She reports that she's been having migraine headaches , currently denies headache .The oral Imitrex typically does not work. She usually uses injectable. She also complains of right hand pain; reports that she hit the floor intentionally. She denies any chest pains, pressures, shortness of breath, nausea or vomiting. She is tolerating a regular diet. 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 Parents report she has lost her disability benefit. Review of Systems Review of Systems All systems: negative Past Medical History Past Medical History: Neurologic Disorder, Seizure Disorder Additional Past Medical History / Comment(s): h/o lymes disease? h/o pseudotumor cerebri? History of Any Multi-Drug Resistant Organisms: MRSA Year Discovered:: 2001 MDRO Source:: head Past Surgical History: Section, Orthopedic Surgery Additional Past Surgical History / Comment(s): right foot, right shoulder, Past Anesthesia/Blood Transfusion Reactions: Motion Sickness Smoking Status: Current every day smoker - Past Family History Mother Family Medical History: No Reported History Medications and Allergies Home Medications Medication Instructions Recorded Confirmed Type Butalb/APAP/Caff 50-325-40Mg 1 tab PO Q6H PRN 08/27/16 02/15/19 History [Fioricet 50-325-40] Omeprazole [PriLOSEC] 20 mg PO AC-BRKFST 01/17/17 02/15/19 History Lacosamide [Vimpat] 200 mg PO BID 01/30/19 02/15/19 History Lisinopril [Zestril] 5 mg PO DAILY 01/30/19 02/15/19 History Pregabalin [Lyrica] 150 mg PO BID 01/30/19 02/15/19 History Prochlorperazine [Compazine] 5 mg PO BID PRN 01/30/19 02/15/19 History Cyclobenzaprine [Flexeril] 5 mg PO TID PRN tab 02/04/19 02/15/19 Rx DULoxetine HCL [Cymbalta] 90 mg PO DAILY #45 capsule. 02/04/19 02/15/19 Rx Doxepin [SINEquan] 10 mg PO HS #30 cap 02/04/19 02/15/19 Rx Lurasidone [Latuda] 80 mg PO DAILY #30 tab 02/04/19 02/15/19 Rx lamoTRIgine [LaMICtal] 100 mg PO BID #60 tab 02/04/19 02/15/19 Rx Nortriptyline [Pamelor] 25 mg PO DAILY 02/15/19 02/15/19 History Allergies Allergy/AdvReac Type Severity Reaction Status Date / Time divalproex sodium Allergy Vomiting Verified 02/15/19 14:53 [From Depakote] cortisone AdvReac causes Verified 02/15/19 14:53 increased pain Physical Exam Vitals: Vital Signs Temp Pulse Pulse Resp BP BP Pulse Ox 02/16/19 01:48 97.8 F 72 18 111/59 02/15/19 18:32 97.0 F L 66 16 111/62 100 02/15/19 17:48 97.7 F 82 16 106/74 98 02/15/19 14:11 98.2 F 79 18 101/71 97 Intake and Output 02/15/19 02/16/19 02/16/19 22:59 06:59 14:59 Other: Weight 95 kg GENERAL: Alert and oriented 3, no acute distress HEAD: Atraumatic, normocephalic. EYES: Pupils equal round and reactive to light, extraocular movements intact, sclera anicteric, conjunctiva are normal. ENT:nares patent, oropharynx clear without exudates. Moist mucous membranes. NECK:supple without lymphadenopathy or JVD, no thyromegaly LUNGS: Breath sounds clear to auscultation bilaterally and equal. No wheezes rales or rhonchi. HEART: Regular rate and rhythm without murmurs, rubs or gallops.S1S2 Normal ABDOMEN: Soft, nontender, normoactive bowel sounds. No guarding, no rebound. No masses appreciated. EXTREMITIES: Normal range of motion, no pitting or edema. No clubbing or cyanosis. Right hand -dorsal with mild edema NEUROLOGICAL: Cranial nerves II through XII grossly intact. Normal speech, n ormal gait. PSYCH: Saddened mood, normal affect. SKIN: Warm, Dry, normal turgor, no rashes or lesions noted. Results CBC & Chem 7: 02/16/19 10:44 02/16/19 10:44 Labs: Abnormal Lab Results - Last 24 Hours (Table) 02/15/19 02/16/19 Range/Units Unknown 10:44 Chloride 108 H (98-107) mmol/L Creatinine 1.11 H (0.52-1.04) mg/dL AST 13 L (14-36) U/L Cholesterol 240 H (<200) mg/dL LDL Cholesterol, Calc 162 H (0-99) mg/dL U Tricyclic Antidepress Detected H (NotDetected) U Benzodiazepines Scrn Detected H (NotDetected) U Marijuana (THC) Screen Detected H (NotDetected) Assessment and Plan Assessment: (1) Migraine, fibromyalgia Current Visit: No Status: Acute Code(s): G43.909 - MIGRAINE, UNSP, NOT INTRACTABLE, WITHOUT STATUS MIGRAINOSUS SNOMED Code(s): 60361752 (2) Right Hand Pain, self inflicted trauma (3) bipolar 2 disorder (4) Abnormal drug screen Current Visit: Yes Status: Acute Code(s): R89.2 - ABN LEV DRUG/MEDS/BIOL SUBST IN SPECIMENS FROM OTH ORG/TISS SNOMED Code(s): 910044537 (5) Depression Current Visit: Yes Status: Acute Code(s): F32.9 - MAJOR DEPRESSIVE DISORDER, SINGLE EPISODE, UNSPECIFIED SNOMED Code(s): 37824398 (6) Suicidal ideation Current Visit: Yes Status: Ac (7) seizure disorder (8) hypertension Plan: Continue on current medication regime, monitoring and symptomatic treatment. Imitrex injections when necessary ordered. Right hand x-ray ordered. Further recommendations to follow. Thank you for allowing us to participate in her care. The impression and plan of care has been dictated as directed. : I performed a history and examination of this patient, discussed the same with the dictator. I agree with the dictator's note ,documented as a scribe. Any additional findings or plans will be noted.
[2019-02-16] MEDS: SUMAtriptan SUCCINATE 6 MG/0.5 ML VIAL SQ PRN (15:38)
--- NOTE | 2019-02-16 21:46 | XR ---
PROCEDURE: XR hand complete RT - 3V DATE AND TIME: 02/16/2019 9:05 PM CLINICAL INDICATION: PHH; r/u fx History: Pain and swelling to right hand. TECHNIQUE: Department protocol COMPARISON: Right hand radiographs 02/16/2019 2:21 PM FINDINGS: There is no fracture or malalignment. There is prominent and diffuse soft tissue swelling, particularly at the dorsum of the hand. IMPRESSION: Prominent soft tissue swelling, which has nearly doubled in volume when compared to the radiograph 7 hours ago.
[2019-02-17] MEDS: LORazepam 1 MG TAB PO PRN ×3 (00:43→21:25)
[2019-02-17] MEDS: ACETAMINOPHEN TAB 325 MG TAB PO PRN (02:39)
[2019-02-17] MEDS ORDERED: ZIPRASIDONE 20 MG VIAL IM ONE (06:03)
[2019-02-17] MEDS ORDERED: WATER FOR INJECTION, STERILE 10 ML IV ONE (06:03)
[2019-02-17] MEDS: ZIPRASIDONE 20 MG VIAL IM PRN (06:04)
--- NOTE | 2019-02-17 09:48 | P.PN ---
Progress Note - Text Interval history: The patient is found in her room she follows me to an interview room. I was informed the last evening she had punched the floor for the second time. She had 2 x-rays of her hand which demonstrated significant swelling with no fracture. She indicates feeling frustrated and bothered by the auditory hallucination she described previously. She reported difficulty sleeping. She was started on Imitrex injections as needed for migraines. We discussed that the drug interaction risk may be greater with Trintellix and Imitrex than other antidepressants and we decided to pick Pristiq instead. The patient is agreeable. She currently has one-to-one supervision she feels it's unnecessary. She feels that she is able to now communicate to staff when she needs help rather than acting in a self-injurious manner. We discussed the need to participate in therapeutic activities on the mental health unit to improve her condition rather than shoes self-injurious behaviors. We discussed options in terms of coping skill choices here on the mental health unit. We reviewed her other psychotropic medications. Her questions were answered. Mental status exam: The patient is alert she is dressed in her own clothing hygiene grooming adequate. Her right hand is significantly swollen. She reports a depressed mood with hopelessness thinking. She reports suicidal ideation. She reports no homicidal ideation or thoughts of harming others. She reports an intermittent auditory hallucination telling her that she is wo rthless. She is not experiencing that hallucination at this time. She maintains a constricted affect. She demonstrates no verbal or physical aggressiveness. She demonstrates no involuntary repetitive movements. Insight and judgment limited. She demonstrates no tangential thinking loose associations or flight of ideas. She is easily directed in the session. Plan: The patient's will continue on Latuda we will increase the dose to 120 mg daily to address the auditory hallucination and for further stabilization of mood. We will initiate Pristiq 50 mg daily for depressive and anxiety symptoms. She is offered nice back for her hand wall for Motrin for pain. We will monitor her for safety. She indicates that she does not require a one-to-one sitter he is able to approach staff with concerns that she's having so that we may address them before she participates in any self-injurious behavior. I will discuss this further with staff during treatment team meeting. She is encouraged to fully participate in milieu.
[2019-02-17] MEDS: LURASIDONE 80 MG TAB PO SCH (10:00)
[2019-02-17] MEDS: PANTOPRAZOLE 40 MG TABLET PO SCH (10:02)
[2019-02-17] MEDS: NORTRIPTYLINE 25 MG CAP PO SCH (10:03)
[2019-02-17] MEDS: DESVENLAFAXINE SUCCINATE 50 MG TAB.ER.24H PO SCH (10:03)
[2019-02-17] MEDS: LACOSAMIDE 50 MG TABLET PO SCH ×2 (10:03→20:48)
[2019-02-17] MEDS: lamoTRIgine 100 MG TAB PO SCH ×2 (10:03→20:48)
[2019-02-17] MEDS: LISINOPRIL 5 MG TAB PO SCH (10:03)
[2019-02-17] MEDS: PREGABALIN 75 MG CAP PO SCH ×2 (10:04→20:48)
[2019-02-17] MEDS: NICOTINE 14MG/24HR PATCH TRANSDERM SCH (10:04)
[2019-02-17] MEDS: IBUPROFEN 800 MG TAB PO PRN ×2 (10:09→23:17)
[2019-02-17] MEDS: SUMAtriptan SUCCINATE 6 MG/0.5 ML VIAL SQ PRN (23:42)
[2019-02-18] MEDS: ZIPRASIDONE 20 MG VIAL IM PRN (01:53)
[2019-02-18] MEDS: LURASIDONE 40 MG TAB PO SCH (08:52)
[2019-02-18] MEDS: LACOSAMIDE 50 MG TABLET PO SCH ×2 (08:53→21:59)
[2019-02-18] MEDS: PREGABALIN 75 MG CAP PO SCH ×2 (08:53→22:00)
[2019-02-18] MEDS: lamoTRIgine 100 MG TAB PO SCH ×2 (08:54→21:59)
[2019-02-18] MEDS: DESVENLAFAXINE SUCCINATE 50 MG TAB.ER.24H PO SCH (08:55)
[2019-02-18] MEDS: NORTRIPTYLINE 25 MG CAP PO SCH (08:55)
[2019-02-18] MEDS: NICOTINE 14MG/24HR PATCH TRANSDERM SCH (08:55)
[2019-02-18] MEDS: LISINOPRIL 5 MG TAB PO SCH (08:55)
[2019-02-18] MEDS: PANTOPRAZOLE 40 MG TABLET PO SCH (09:00)
--- NOTE | 2019-02-18 10:57 | P.PN ---
Progress Note - Text Interval history: The patient is found in the hallway she follows me to an interview room. She reports that her mood is better today. She states that she had a good visit with her family members. She did have thoughts of wanting to punch something again but presented to staff and was redirected. She states that she voluntarily took a Geodon injection last evening which seemed to help. We reviewed her current scheduled psychotropic medications her questions were answered. She only participated in 1 or 2 groups yesterday she is encouraged to participate more fully. She will give that consideration. Appetite stable. Mental status exam: The patient is alert she is dressed in her own clothing. Hygiene grooming adequate. The edema of her right hand is reduced. She reports her mood is better today compared to yesterday. She still feels depressed she still reports having hopeless thoughts and suicidal ideation. She reports no homicidal ideation intent or plan. She reports a continued auditory hallucinations that is noncommanding. No visual hallucinations no specific delusions reported. There is no observed evidence of psychosis during our interaction. She demonstrates no tangential thinking loose associations or flight of ideas. She does not appear hypomanic or manic. Insight and judgment limited. Plan: The patient will continue on her current psychotropic medications. We will monitor for safety and encourage full participation in the milieu. Vital signs reviewed. We will continue general suicide precautions with 15 minute checks. She continues to verbalize that she can present to staff with concerns regarding safety.
[2019-02-18] MEDS: LORazepam 1 MG TAB PO PRN (15:06)
[2019-02-18] MEDS: CYCLOBENZAPRINE 10 MG TAB PO PRN (19:05)
[2019-02-18] MEDS: SUMAtriptan SUCCINATE 6 MG/0.5 ML VIAL SQ PRN (22:41)
[2019-02-18] MEDS: IBUPROFEN 800 MG TAB PO PRN (23:05)
[2019-02-19] MEDS: LORazepam 1 MG TAB PO PRN ×3 (00:50→22:03)
[2019-02-19] MEDS: ZIPRASIDONE 20 MG VIAL IM PRN ×2 (02:41→18:03)
[2019-02-19] MEDS: DESVENLAFAXINE SUCCINATE 50 MG TAB.ER.24H PO SCH (07:59)
[2019-02-19] MEDS: PANTOPRAZOLE 40 MG TABLET PO SCH (07:59)
[2019-02-19] MEDS: NORTRIPTYLINE 25 MG CAP PO SCH (08:00)
[2019-02-19] MEDS: LISINOPRIL 5 MG TAB PO SCH (08:00)
[2019-02-19] MEDS: PREGABALIN 75 MG CAP PO SCH ×2 (08:00→20:53)
[2019-02-19] MEDS: lamoTRIgine 100 MG TAB PO SCH ×2 (08:00→20:52)
[2019-02-19] MEDS: LURASIDONE 40 MG TAB PO SCH (08:01)
[2019-02-19] MEDS: CYCLOBENZAPRINE 10 MG TAB PO PRN (08:59)
[2019-02-19] MEDS: LACOSAMIDE 50 MG TABLET PO SCH ×2 (09:14→20:52)
[2019-02-19] MEDS: NICOTINE 14MG/24HR PATCH TRANSDERM SCH (09:55)
--- NOTE | 2019-02-19 11:10 | P.PN ---
Progress Note - Text Interval history: The patient is found in her room she follows me to an interview room. She indicates her mood is mildly improved. She states she continues to have some difficulties in the evening. She reports experiencing an auditory hallucination and voluntarily received the Geodon injection. She feels her symptoms are gradually improving however as the hospitalization progresses. She demonstrated no self-injurious behavior in the last 48 hours. bible worker has arranged a support meeting to occur this Friday. Mental status exam: The patient is alert she is dressed in her own clothing hygiene grooming adequate. She continues to demonstrate some swelling of the right hand but it continues to improve each day. She complains of no pain with that hand. She reports no acute suicidal ideation intent or plan here in the hospital. She is reporting no auditory hallucinations at this moment but states that it can occur later in the day. No thoughts of harming others. She demonstrates no verbal or physical aggressiveness. She demonstrates no involuntary repetitive movements. Insight and judgment slowly improving. She does continue to be somatically preoccupied at times. Plan: The patient will continue on her current psychotropic medications she requested that we start melatonin. She is slowly clinically stabilizing. We will monitor her for safety and encourage full participation in the milieu. She indicates she attended more groups yesterday. We will await the outcome of her support meeting.
[2019-02-19] MEDS: IBUPROFEN 800 MG TAB PO PRN ×2 (12:35→22:03)
[2019-02-19] MEDS ORDERED: TOPIRAMATE 25 MG TAB PO SCH (16:58)
[2019-02-19] MEDS: MELATONIN 5 MG TABLET PO SCH (20:52)
[2019-02-20] MEDS: IBUPROFEN 800 MG TAB PO PRN ×2 (06:30→23:40)
[2019-02-20] MEDS: LORazepam 1 MG TAB PO PRN ×2 (06:32→16:11)
[2019-02-20] MEDS: PANTOPRAZOLE 40 MG TABLET PO SCH (08:45)
[2019-02-20] MEDS: lamoTRIgine 100 MG TAB PO SCH ×2 (08:45→20:53)
[2019-02-20] MEDS: LURASIDONE 40 MG TAB PO SCH (08:45)
[2019-02-20] MEDS: PREGABALIN 75 MG CAP PO SCH ×2 (08:45→20:53)
[2019-02-20] MEDS: DESVENLAFAXINE SUCCINATE 50 MG TAB.ER.24H PO SCH (08:45)
[2019-02-20] MEDS: LISINOPRIL 5 MG TAB PO SCH (08:45)
[2019-02-20] MEDS: NORTRIPTYLINE 25 MG CAP PO SCH (08:46)
[2019-02-20] MEDS: LACOSAMIDE 50 MG TABLET PO SCH ×2 (08:46→20:53)
[2019-02-20] MEDS: NICOTINE 14MG/24HR PATCH TRANSDERM SCH (08:47)
[2019-02-20] MEDS: ACETAMINOPHEN TAB 325 MG TAB PO PRN (09:30)
--- NOTE | 2019-02-20 11:44 | P.PN ---
Progress Note - Text Progress Note Date: 02/20/19 Interval history: Chart reviewed and discussed with nursing staff this morning. Interviewed patient one-on-one and she states that her depression and anxiety has decreased and she is doing well with the [facility] milieu therapeutic environment. She is interactive in groups and intending and his presenting herself in a positive manner. Mental status examination: This is a 38-year-old female who was well- groomed appears her stated age. Speech language spontaneous. Attitude and behaviors cooperative. Mood still remains depressed and anxious but has greatly improved and patient's own is. Affect full range. Orientation person place time and situation. Thought content within normal. Risk factors she denies suicidal or homicidal ideation today. Her session within normal. Thought processes goal oriented. Concentration tension appear within normal per observation and interview with the patient. Recent memory and remote memory within normal. Intelligence average. Judgment and insight fair and has been improving per observation. Plan is to continue 15 minute checks for safety and usual [facility] milieu environment. No change in medication indicated this time. We'll follow observed for any need for increase and decrease of psychiatric medication her interview with patient and symptoms.
[2019-02-20] MEDS: ASPIRIN-ACET-CAFF 250-250-65MG 1 EACH TAB PO PRN (13:21)
[2019-02-20] MEDS: ZIPRASIDONE 20 MG VIAL IM PRN (14:21)
[2019-02-20] MEDS: MELATONIN 5 MG TABLET PO SCH (23:40)
[2019-02-20] MEDS: CYCLOBENZAPRINE 10 MG TAB PO PRN (23:40)
[2019-02-21] MEDS: LORazepam 1 MG TAB PO PRN ×3 (00:21→15:28)
[2019-02-21] MEDS: LACOSAMIDE 50 MG TABLET PO SCH ×2 (08:39→20:14)
[2019-02-21] MEDS: DESVENLAFAXINE SUCCINATE 50 MG TAB.ER.24H PO SCH (08:39)
[2019-02-21] MEDS: acetaZOLAMIDE 250 MG TAB PO SCH ×2 (08:40→20:14)
[2019-02-21] MEDS: PREGABALIN 75 MG CAP PO SCH ×2 (08:40→20:14)
[2019-02-21] MEDS: PANTOPRAZOLE 40 MG TABLET PO SCH (08:40)
[2019-02-21] MEDS: LISINOPRIL 5 MG TAB PO SCH (08:40)
[2019-02-21] MEDS: lamoTRIgine 100 MG TAB PO SCH ×2 (08:40→20:14)
[2019-02-21] MEDS: NORTRIPTYLINE 25 MG CAP PO SCH (08:40)
[2019-02-21] MEDS: LURASIDONE 40 MG TAB PO SCH (08:40)
[2019-02-21] MEDS: CYCLOBENZAPRINE 10 MG TAB PO PRN (08:41)
[2019-02-21] MEDS: IBUPROFEN 800 MG TAB PO PRN ×2 (08:41→20:13)
[2019-02-21] MEDS: ASPIRIN-ACET-CAFF 250-250-65MG 1 EACH TAB PO PRN ×2 (09:27→15:34)
--- NOTE | 2019-02-21 11:32 | P.PN ---
Progress Note - Text Progress Note Date: 02/21/19 Interval history: Chart reviewed and discussed with nursing staff this morning. She has been integrated in the [facility] and milieu environment. Interacting with peers in a positive way. Her presentation looks more intact than yesterday and neatly groomed today. She feels is benefiting from going to groups and the medications are helping. Mental status examination this is a 38-year-old female who is casually dressed and well-groomed today and appears her stated age. Speech and language are slow and hesitant and soft in nature. Attitude and behavior cooperative but guarded. Mood remains depressed anxious. Affect flat blunted restricted. Orientation person place time and situation. Thought content within normal. Risk factor she denies suicidal or homicidal ideation today. Perception remains with auditory hallucinations with less in nature. Thought process is concrete in nature. Concentration span within normal. Recent remote memory within normal. Intelligence average. Judgment and insight fair in nature. Plan: Will monitor for safety and 15 minute checks and usual protocol for the psychiatric unit. She'll maintain on her current medications and modify when needed for symptom relief. Benefit risk ratio of medication discussed and she is okay with her current educational regime.
[2019-02-21] MEDS: ZIPRASIDONE 20 MG VIAL IM PRN (21:20)
[2019-02-22] MEDS: MELATONIN 5 MG TABLET PO SCH ×2 (00:08→22:58)
[2019-02-22] MEDS: CYCLOBENZAPRINE 10 MG TAB PO PRN ×2 (00:09→22:58)
[2019-02-22] MEDS: LORazepam 1 MG TAB PO PRN ×3 (00:10→22:58)
[2019-02-22] MEDS: IBUPROFEN 800 MG TAB PO PRN ×2 (07:03→18:31)
[2019-02-22] MEDS: LURASIDONE 40 MG TAB PO SCH (08:24)
[2019-02-22] MEDS: acetaZOLAMIDE 250 MG TAB PO SCH ×2 (08:25→21:27)
[2019-02-22] MEDS: LISINOPRIL 5 MG TAB PO SCH (08:25)
[2019-02-22] MEDS: NORTRIPTYLINE 25 MG CAP PO SCH (08:25)
[2019-02-22] MEDS: PREGABALIN 75 MG CAP PO SCH ×2 (08:25→21:27)
[2019-02-22] MEDS: PANTOPRAZOLE 40 MG TABLET PO SCH (08:25)
[2019-02-22] MEDS: DESVENLAFAXINE SUCCINATE 50 MG TAB.ER.24H PO SCH (08:25)
[2019-02-22] MEDS: LACOSAMIDE 50 MG TABLET PO SCH ×2 (08:25→21:27)
[2019-02-22] MEDS: lamoTRIgine 100 MG TAB PO SCH ×2 (08:25→21:27)
[2019-02-22] MEDS: ACETAMINOPHEN TAB 325 MG TAB PO PRN ×2 (08:40→18:29)
--- NOTE | 2019-02-22 11:26 | P.PN ---
Progress Note - Text Interval history: The patient is found in group she follows me to an interview room. She states that her mood is not good today she struggling with whole-body pain. She was under the impression she was being discharged today she spontaneously stated she was not ready and feels she would harm herself if discharged today. We discussed that we hadn't determine a discharge date yet and that we would discuss this with her further. She states she's been attending groups. She didn't eat breakfast this morning due to her discomfort. She did have a positive visit from family over the weekend and continues to find family member supportive. Her Lamictal was titrated further during the course of the weekend. She has no questions regarding her psychotropic medication. Mental status exam: The patient is alert she is dressed in her own clothing hygiene is adequate grooming's impaired. She endorses a depressed mood with hopelessness thinking and suicidal thoughts. She reports no homicidal ideation. There is no observed evidence of psychosis. She states she will intermittently hearing a voice. She demonstrates no verbal or physical aggressiveness she demonstrates no involuntary repetitive movements. She is directable during the session. She remains oriented to person place and date. Insight and judgment limited. She does not appear hypomanic or manic. Plan: The patient will continue on her current psychotropic medications. We are allowing needs time to demonstrate efficacy. Encourage full participation in the milieu. We will monitor her for safety. Vital signs reviewed.
[2019-02-22] MEDS: ZIPRASIDONE 20 MG VIAL IM PRN (12:27)
[2019-02-22] MEDS: ASPIRIN-ACET-CAFF 250-250-65MG 1 EACH TAB PO PRN (23:20)
[2019-02-23] MEDS: IBUPROFEN 800 MG TAB PO PRN ×3 (04:56→20:53)
[2019-02-23] MEDS: LORazepam 1 MG TAB PO PRN ×3 (05:00→22:39)
--- NOTE | 2019-02-23 08:47 | P.PN ---
Progress Note - Text Interval history: The patient is found in the hallway she follows me to an interview room. She was placed on one-to-one supervision last night due to threat of self injury. She approach staff and stated she wanted to again punch something and felt unsafe without one-to-one supervision. She indicates that yesterday she experienced a flare of her fibromyalgia and that made her irritable and depressed. She states she still has that pain but it's decreased from yesterday. She reports attending no groups she did not eat well. She f eels today is better. She spontaneously states that she is able to control her impulses. She had concern that the Pristiq was not yet affective and we discussed the medication in detail as well as alternatives to Pristiq. Mental status exam: The patient is an overweight female she is ambulating slowly without ataxia. She is dressed in her own clothing hygiene grooming adequate. She endorses a depressed mood with some irritability. She reports hopelessness thinking with suicidal ideation. She states that she's able to manage the impulses better on the mental health unit. She is reporting no homicidal ideation intent or plan. She endorses no auditory or visual hallucinations or any specific delusions. She demonstrates no tangential thinking loose associations or flight of ideas she does not appear hypomanic or manic. There is no observed evidence of psychosis during our interaction. She is somewhat argumentative initially in the session but that diminishes as the se ssion progresses. She demonstrates no verbal or physical aggressiveness. She demonstrates no involuntary repetitive movements. She remains oriented to person place and date. Plan: The patient will continue on her current psychotropic medications we are allowing them time to demonstrate efficacy. She continues to display personality disorder traits consistent with cluster B. She does not require the one-to-one supervision at this time we will resume general suicide precautions with 15 minute safety checks. She has been able to approach staff to report safety concerns. She is encouraged to participate in the milieu. Vital signs reviewed.
[2019-02-23] MEDS: PANTOPRAZOLE 40 MG TABLET PO SCH (09:07)
[2019-02-23] MEDS: LISINOPRIL 5 MG TAB PO SCH (09:07)
[2019-02-23] MEDS: lamoTRIgine 100 MG TAB PO SCH ×2 (09:07→20:03)
[2019-02-23] MEDS: PREGABALIN 75 MG CAP PO SCH ×2 (09:07→20:04)
[2019-02-23] MEDS: acetaZOLAMIDE 250 MG TAB PO SCH ×2 (09:08→20:03)
[2019-02-23] MEDS: NORTRIPTYLINE 25 MG CAP PO SCH (09:08)
[2019-02-23] MEDS: LURASIDONE 40 MG TAB PO SCH (09:08)
[2019-02-23] MEDS: DESVENLAFAXINE SUCCINATE 50 MG TAB.ER.24H PO SCH (09:08)
[2019-02-23] MEDS: ACETAMINOPHEN TAB 325 MG TAB PO PRN ×2 (09:11→17:55)
[2019-02-23] MEDS: LACOSAMIDE 50 MG TABLET PO SCH ×2 (09:11→20:03)
[2019-02-23] MEDS: ASPIRIN-ACET-CAFF 250-250-65MG 1 EACH TAB PO PRN (10:33)
[2019-02-23] MEDS: CYCLOBENZAPRINE 10 MG TAB PO PRN ×2 (12:49→22:39)
[2019-02-23] MEDS: MELATONIN 5 MG TABLET PO SCH (22:39)
[2019-02-24] MEDS ORDERED: diphenhydrAMINE 50 MG CAP PO STA (00:31)
[2019-02-24] MEDS: ZIPRASIDONE 20 MG VIAL IM PRN (03:06)
[2019-02-24] MEDS: CYCLOBENZAPRINE 10 MG TAB PO PRN ×2 (06:43→21:06)
[2019-02-24] MEDS: IBUPROFEN 800 MG TAB PO PRN ×3 (06:43→21:06)
[2019-02-24] MEDS: LORazepam 1 MG TAB PO PRN ×3 (06:43→21:06)
[2019-02-24] MEDS: DESVENLAFAXINE SUCCINATE 50 MG TAB.ER.24H PO SCH (08:43)
[2019-02-24] MEDS: acetaZOLAMIDE 250 MG TAB PO SCH ×2 (08:43→21:03)
[2019-02-24] MEDS: LISINOPRIL 5 MG TAB PO SCH (08:43)
[2019-02-24] MEDS: PANTOPRAZOLE 40 MG TABLET PO SCH (08:44)
[2019-02-24] MEDS: lamoTRIgine 100 MG TAB PO SCH ×2 (08:44→21:03)
[2019-02-24] MEDS: PREGABALIN 75 MG CAP PO SCH ×2 (08:44→21:03)
[2019-02-24] MEDS: NORTRIPTYLINE 25 MG CAP PO SCH (08:44)
[2019-02-24] MEDS: LACOSAMIDE 50 MG TABLET PO SCH ×2 (08:44→21:03)
[2019-02-24] MEDS: LURASIDONE 40 MG TAB PO SCH (08:44)
--- NOTE | 2019-02-24 09:46 | P.PN ---
Progress Note - Text Interval history: The patient is found in the library she follows me to an interview room. She indicates she is sad she feels hopeless she continues to have suicidal thoughts. She states it has always been her family this kept her from killing herself but she feels that once she is discharge that won't be enough to stop her. She describes fibromyalgia type pain and migraine pain and she feels overwhelmed by it. She does work with a neurologist as an outpatient for pain management. She has found the Lyrica ineffective. Neurontin made her too sleepy throughout the day. She does have an outpatient prescription for Fioricet and we discussed allowing her to use that infrequently here on the mental health unit. Mental status exam: The patient is alert she is dressed in her own clothing hygiene grooming fair. She is tearful throughout the session. She describes suicidal ideation. No homicidal ideation. She is reporting no auditory or visual hallucinations or any specific delusions. She demonstrates no verbal or physical aggressiveness. There are no involuntary repetitive movements. Speech is fluent slow nonpressured. She does not appear hypomanic or manic. Insight and judgment are impaired. Thinking is more nihilistic today. Plan: The patient continues to demonstrate significant symptoms of depression. These are exacerbated by pain specifically migraine cephalgia. In a limited fashion she may use her Fioricet. We will monitor her for safety and encourage improved participation in the milieu. She requires continued psychiatric hospitalization.
[2019-02-24] MEDS: BUTALB/APAP/CAFF 50-325-40MG TAB PO PRN (10:24)
[2019-02-24] MEDS: MELATONIN 5 MG TABLET PO SCH (21:03)
[2019-02-25] MEDS: BUTALB/APAP/CAFF 50-325-40MG TAB PO PRN (01:26)
[2019-02-25] MEDS: ZIPRASIDONE 20 MG VIAL IM PRN (02:45)
[2019-02-25] MEDS: IBUPROFEN 800 MG TAB PO PRN ×3 (06:52→21:34)
[2019-02-25] MEDS: LORazepam 1 MG TAB PO PRN (06:53)
[2019-02-25] MEDS: CYCLOBENZAPRINE 10 MG TAB PO PRN ×2 (06:53→19:01)
[2019-02-25] MEDS ORDERED: SUMAtriptan SUCCINATE 6 MG/0.5 ML VIAL SQ ONE (08:58)
--- NOTE | 2019-02-25 09:07 | P.PN ---
Progress Note - Text Interval history: The patient is found in her room she follows me to an interview room. There is extensive documentation from nursing last night the patient indicated she had suicidal thoughts and was not ready for discharge. The patient states nursing told her she was being discharged today. She was reassured that together we would make that decision and that it would be something we plan in advance. The patient states that her suicidal thoughts continue but she feels are manageable and now demands to be discharged. Obviously she is demonstrating evidence of her borderline personality disorder. We discussed that she has verbalized that she has been acutely suicidal through the week and has not given us good reason to feel that she is safe to be discharged today. We discussed managing her migraine pain further as she feels this is a significant contributor to her suicidal thoughts. Mental status exam: The patient is alert she is dressed room clothing grooming adequate hygiene adequate. She speaks quietly speech is fluent nonpressured. She reports ongoing suicidal thoughts but today states that are manageable. Affect is blunted. She reports no homicidal ideation intent or plan. She is endorsing no auditory or visual hallucinations. Over the last several days mood reports have been labile. Insight and judgment are impaired. She demonstrates no verbal or physical aggressiveness she demonstrates no involuntary repetitive movements. Plan: The patient is not yet ready to be discharged. We discussed goals that she would need to accomplish prior to being discharged. We reviewed her psychotropic medications. We reviewed her medications to manage her migraine cephalgia. Vital signs reviewed. She is encouraged to participate in the milieu. She indicates that she is able to speak with staff if she has any acute suicidal ideation or other safety concerns.
[2019-02-25] MEDS: PREGABALIN 75 MG CAP PO SCH ×2 (09:28→21:30)
[2019-02-25] MEDS: LURASIDONE 40 MG TAB PO SCH (09:28)
[2019-02-25] MEDS: PANTOPRAZOLE 40 MG TABLET PO SCH (09:28)
[2019-02-25] MEDS: lamoTRIgine 100 MG TAB PO SCH ×2 (09:28→21:31)
[2019-02-25] MEDS: LACOSAMIDE 50 MG TABLET PO SCH ×2 (09:28→21:31)
[2019-02-25] MEDS: NORTRIPTYLINE 25 MG CAP PO SCH (09:29)
[2019-02-25] MEDS: LISINOPRIL 5 MG TAB PO SCH (09:29)
[2019-02-25] MEDS: DESVENLAFAXINE SUCCINATE 50 MG TAB.ER.24H PO SCH (09:29)
[2019-02-25] MEDS: acetaZOLAMIDE 250 MG TAB PO SCH ×2 (09:29→21:31)
[2019-02-25] MEDS: ACETAMINOPHEN TAB 325 MG TAB PO PRN (16:41)
[2019-02-25] MEDS: MELATONIN 5 MG TABLET PO SCH (21:32)
[2019-02-26] MEDS: BUTALB/APAP/CAFF 50-325-40MG TAB PO PRN ×3 (00:36→17:25)
[2019-02-26 01:00] VITALS: RESP 16
[2019-02-26] MEDS: ACETAMINOPHEN TAB 325 MG TAB PO PRN ×2 (03:41→09:32)
[2019-02-26] MEDS: CYCLOBENZAPRINE 10 MG TAB PO PRN ×2 (06:02→17:25)
[2019-02-26] MEDS: IBUPROFEN 800 MG TAB PO PRN ×2 (06:02→20:41)
[2019-02-26] MEDS: DESVENLAFAXINE SUCCINATE 50 MG TAB.ER.24H PO SCH (07:47)
[2019-02-26] MEDS: acetaZOLAMIDE 250 MG TAB PO SCH ×2 (07:47→20:41)
[2019-02-26] MEDS: LACOSAMIDE 50 MG TABLET PO SCH ×2 (07:47→20:42)
[2019-02-26] MEDS: lamoTRIgine 100 MG TAB PO SCH ×2 (07:47→20:41)
[2019-02-26] MEDS: LISINOPRIL 5 MG TAB PO SCH (07:48)
[2019-02-26] MEDS: NORTRIPTYLINE 25 MG CAP PO SCH (07:48)
[2019-02-26] MEDS: PREGABALIN 75 MG CAP PO SCH ×2 (07:49→20:41)
[2019-02-26] MEDS: PANTOPRAZOLE 40 MG TABLET PO SCH (07:49)
[2019-02-26] MEDS: LURASIDONE 40 MG TAB PO SCH (07:49)
--- NOTE | 2019-02-26 09:55 | P.PN ---
Progress Note - Text Interval history: The patient is found in her room she follows me to an interview room. She indicates her mood is better today. She describes experiencing a cluster headache and has some subsequent dizziness. Vital signs are reviewed. She states that she is trying to attend groups. She offers an apology for yesterday's behavior during our session. I was informed that she signed a notice to withdraw her voluntary status yesterday and we discussed that that would Friday. She has asked social work instructor to arrange a family me eting to occur on Friday. She has no questions or concerns regarding her psychotropic medication. Mental status exam: The patient is alert she is ambulating slowly. There is no ataxia. She reports her mood is better today she is reporting no acute suicidal ideation and feels safe in the hospital. She is reporting no thoughts of harming others. She endorses no auditory or visual hallucinations or specific delusions. We discussed the lability of her reported moods over the last several days. She demonstrates no verbal or physical aggressiveness she demonstrates no involuntary repetitive movements. Insight and judgment slowly improving. Plan: The patient will continue on her current psychotropic medication. We will monitor her for safety. Vital signs reviewed. She is encouraged to participate in the milieu. If clinically appropriate we will consider discharging her Friday. We will await the outcome of her family meeting on Friday.
[2019-02-26] MEDS ORDERED: SUMAtriptan SUCCINATE 6 MG/0.5 ML VIAL SQ STA (13:45)
[2019-02-26] MEDS: MELATONIN 5 MG TABLET PO SCH (20:41)
[2019-02-26] MEDS: ZIPRASIDONE 20 MG VIAL IM PRN (22:34)
[2019-02-27] MEDS: CYCLOBENZAPRINE 10 MG TAB PO PRN ×2 (06:37→20:09)
[2019-02-27] MEDS: IBUPROFEN 800 MG TAB PO PRN ×3 (06:38→15:57)
[2019-02-27] MEDS: BUTALB/APAP/CAFF 50-325-40MG TAB PO PRN ×2 (06:40→14:00)
[2019-02-27] MEDS: LACOSAMIDE 50 MG TABLET PO SCH ×2 (08:34→20:08)
[2019-02-27] MEDS: LURASIDONE 40 MG TAB PO SCH (08:34)
[2019-02-27] MEDS: acetaZOLAMIDE 250 MG TAB PO SCH ×2 (08:35→20:08)
[2019-02-27] MEDS: PREGABALIN 75 MG CAP PO SCH ×2 (08:35→20:08)
[2019-02-27] MEDS: NORTRIPTYLINE 25 MG CAP PO SCH (08:35)
[2019-02-27] MEDS: LISINOPRIL 5 MG TAB PO SCH (08:35)
[2019-02-27] MEDS: lamoTRIgine 100 MG TAB PO SCH ×2 (08:35→20:08)
[2019-02-27] MEDS: PANTOPRAZOLE 40 MG TABLET PO SCH (08:35)
[2019-02-27] MEDS: DESVENLAFAXINE SUCCINATE 50 MG TAB.ER.24H PO SCH (08:36)
[2019-02-27] MEDS: ACETAMINOPHEN TAB 325 MG TAB PO PRN (09:18)
[2019-02-27] MEDS ORDERED: SUMAtriptan SUCCINATE 50 MG TAB PO STA (17:33)
--- NOTE | 2019-02-27 17:36 | P.PN ---
Subjective Progress Note Date: 02/27/19 Principal diagnosis: Bipolar Disorder II Found her in severe distress due to cluster headaches. She is getting very upset about cluster headaches. Reports her moood is down and depressed. Behaviorally well controlled. Did sleep good last night. Denies suicidal or homicidal ideaton MSE: Alert, awake, oriented in all spheres. Fair eye contact. Mood anxious and irritable with flat affect. Denies suicidal or homicidal ideation. No psychoses. Insight and judgment improving A/P : Bipolar Disorder II Will continue to adjust medications accordingly Objective - Vital Signs Vital signs: Vital Signs Temp 97.9 F 02/27/19 06:51 Pulse 81 02/27/19 06:51 Resp 16 02/27/19 06:51 BP 114/63 02/27/19 06:51 Pulse Ox 100 02/15/19 18:32 - Labs CBC & Chem 7: 02/16/19 10:44 02/16/19 10:44
[2019-02-27] MEDS: MELATONIN 5 MG TABLET PO SCH (20:08)
[2019-02-27] MEDS: ZIPRASIDONE 20 MG VIAL IM PRN (22:04)
[2019-02-28] MEDS: BUTALB/APAP/CAFF 50-325-40MG TAB PO PRN ×3 (02:27→20:55)
[2019-02-28 02:37] VITALS: TEMP 97.8
[2019-02-28] MEDS: IBUPROFEN 800 MG TAB PO PRN ×3 (04:32→23:37)
[2019-02-28] MEDS: lamoTRIgine 100 MG TAB PO SCH ×2 (08:04→20:56)
[2019-02-28] MEDS: DESVENLAFAXINE SUCCINATE 50 MG TAB.ER.24H PO SCH (08:04)
[2019-02-28] MEDS: PANTOPRAZOLE 40 MG TABLET PO SCH (08:04)
[2019-02-28] MEDS: LURASIDONE 40 MG TAB PO SCH (08:04)
[2019-02-28] MEDS: acetaZOLAMIDE 250 MG TAB PO SCH ×2 (08:04→20:56)
[2019-02-28] MEDS: LISINOPRIL 5 MG TAB PO SCH (08:05)
[2019-02-28] MEDS: LACOSAMIDE 50 MG TABLET PO SCH ×2 (08:05→20:56)
[2019-02-28] MEDS: NORTRIPTYLINE 25 MG CAP PO SCH (08:05)
[2019-02-28] MEDS: CYCLOBENZAPRINE 10 MG TAB PO PRN (08:05)
[2019-02-28] MEDS: PREGABALIN 75 MG CAP PO SCH ×2 (08:05→20:56)
[2019-02-28] MEDS: CEPHALEXIN 500 MG CAP PO SCH ×2 (09:33→20:56)
--- NOTE | 2019-02-28 11:44 | P.PN ---
Progress Note - Text Staff had contacted me about this patient's poor dentition and worsening dental pain. There was a question if antibiotics may help. Most likely this patient needs to see a dentist for extraction of poor teeth causing a problem. Have significant dental caries. I will order Keflex 500 mg every 8 hours. We'll plan on this patient following up outpatient with a of dental surgery. If he remains on the psych floor and still needs our assistance, we will come back and see her. At this time she'll start the antibiotics continue ibuprofen for inflammation.
[2019-02-28 12:31] VITALS: BMI 33.5
--- NOTE | 2019-02-28 14:03 | P.PN ---
Subjective Progress Note Date: 02/28/19 Principal diagnosis: Bipolar Disorder II Found her in moderate distress due to cluster headaches. She is getting very upset about cluster headaches. Reports her mood is down and depressed. Behaviorally well controlled. Did sleep good last night. Denies suicidal or homicidal ideaton MSE: Alert, awake, oriented in all spheres. Fair eye contact. Mood anxious and irritable with flat affect. Denies suicidal or homicidal ideation. No psychoses. Insight and judgment improving A/P : Bipolar Disorder II Will continue to adjust medications accordingly Objective - Vital Signs Vital signs: Vital Signs Temp 97.8 F 02/28/19 02:36 Pulse 85 02/28/19 02:36 Resp 16 02/28/19 02:36 BP 101/54 02/28/19 02:36 Pulse Ox 100 02/15/19 18:32 Intake & Output 02/27/19 02/28/19 02/28/19 18:59 06:59 18:59 Weight 92.9 kg - Labs CBC & Chem 7: 02/16/19 10:44 02/16/19 10:44
[2019-02-28] MEDS: MELATONIN 5 MG TABLET PO SCH (20:56)
[2019-03-01] MEDS: BUTALB/APAP/CAFF 50-325-40MG TAB PO PRN (05:43)
[2019-03-01] MEDS: LISINOPRIL 5 MG TAB PO SCH (07:55)
[2019-03-01] MEDS: lamoTRIgine 100 MG TAB PO SCH (07:56)
[2019-03-01] MEDS: LACOSAMIDE 50 MG TABLET PO SCH (07:56)
[2019-03-01] MEDS: PREGABALIN 75 MG CAP PO SCH (07:56)
[2019-03-01] MEDS: LURASIDONE 40 MG TAB PO SCH (07:56)
[2019-03-01] MEDS: NORTRIPTYLINE 25 MG CAP PO SCH (07:56)
[2019-03-01] MEDS: PANTOPRAZOLE 40 MG TABLET PO SCH (07:56)
[2019-03-01] MEDS: CEPHALEXIN 500 MG CAP PO SCH (07:56)
[2019-03-01] MEDS: DESVENLAFAXINE SUCCINATE 50 MG TAB.ER.24H PO SCH (07:57)
[2019-03-01] MEDS: acetaZOLAMIDE 250 MG TAB PO SCH (07:57)
[2019-03-01] MEDS: CYCLOBENZAPRINE 10 MG TAB PO PRN (07:58)
[2019-03-01] MEDS: IBUPROFEN 800 MG TAB PO PRN (07:58)
[2019-03-01 09:17] VITALS: BP 121/80; PULSE 77
[2019-03-01] MEDS: ACETAMINOPHEN TAB 325 MG TAB PO PRN (10:55)
--- NOTE | 2019-03-01 11:35 | P.DS ---
Providers Date of admission: 02/15/19 16:36 Expected date of discharge: 03/01/19 Attending physician: Zuhair Coleman Consults: 02/15/19 17:27 Consult Physician Routine Consulting Provider: Jonathan Kulkarni Consult Reason/Comments: H&P and medical Do you want consulting provider notified?: Yes 02/27/19 21:29 Consult Physician Routine Consulting Provider: Jonathan Kulkarni Consult Reason/Comments: C/O tooth pain Do you want consulting provider notified?: Yes, Notify in am Primary care physician: Jonathan Kulkarni - Discharge Diagnosis(es) (1) Bipolar II disorder, mild, depressed, with anxious distress Current Visit: Yes Status: Acute Priority: High (2) Cannabis use disorder, mild, abuse Current Visit: No Status: Acute Priority: Medium Hospital Course: Brief summary admission note: This patient is a 38-year-old single female was admitted back to the mental health unit with suicidal ideation. She states that she experienced a relapse of suicidal thoughts and was experiencing an auditory hallucination of a male voice directing her to drive into a tree or cut her wrists. She described having low energy low motivation and felt hopeless. She was just recently on this mental health unit January 31. During that stay the Cymbalta was titrated. With this admission she states that she does not feel the medication is effective and there needs to be a change. For full details please refer to my psychiatric evaluation dated 02/16/2019. Summary of hospital course: The patient was admitted to the mental health unit voluntarily. We reviewed her present symptoms and treatment options. She was seen by internal medicine for routine history and physical exam. Early into the admission the patient had punched the floor with her hand. Her hand was x-rayed no evidence of fracture or dislocation was found. She did have significant swelling. This did resolve during the course of her admission and she describes no pain in her hand. She was placed on one-to-one supervision twice during this hospitalization. She did receive injections of Geodon mostly voluntarily for acute symptoms. We decided to titrate her Latuda to 120 mg daily she was taken off of Cymbalta and placed on Pristiq 50 mg daily. Lamictal was titrated to 200 mg twice daily. Other psychotropic medication was continued. She intermittently participated in the milieu. Over the last several days she has reported a significant improvement in mood and feels stable for discharge. She did have visits from her family that were supportive and she participated in a family meeting with her mother yesterday which went well. The patient plans on continuing her follow-up with [facility]. She will continue working with her primary care physician as needed. Mental status exam: The patient is alert she is dressed in her own clothing hygiene grooming are adequate. Eye contact is appropriate. Speech is fluent spontaneous nonpressured. She demonstrates no tangential thinking loose associations or flight of ideas. She is reporting no hopelessness thinking she reports no suicidal ideation intent or plan and no homicidal ideation intent or plan. She demonstrates no verbal or physical aggressiveness. Affect is brighter she demonstrates appropriate smiling and laughter with use of humor. She demonstrates no involuntary repetitive movements. Insight and judgment have improved. She reports no auditory or visual hallucinations or any specific delusions there is no observed evidence of psychosis. Impressions 1. Bipolar 2 disorder most recent depressed cannabis use disorder rule out benzodiazepine use disorder history of cocaine and methamphetamine as well as opiate use disorders 2. Borderline personality disorder 3. Fibromyalgia, migraines, GERD, seizure disorder, hypertension, reported history of Lyme disease Plan: The patient will continue on her current psychotropic medications specifically Pristiq 50 mg daily Lamictal 200 mg twice daily Latuda 120 mg daily Pamelor 25 mg daily. She will return home to her residence with family support. She will follow up with [facility] for outpatient mental healthcare. At this time there is no imminent safety risk she is appropriate for transition to outpatient care. She is instructed to abstain from any use of substances including alcohol and marijuana as they may precipitate psychiatric symptoms and elevated her safety risk. She is instructed to return to the hospital with any acute safety concerns. Patient Condition at Discharge: Stable Plan - Discharge Summary Discharge Rx Participant: No New Discharge Prescriptions: New acetaZOLAMIDE [Diamox] 250 mg PO BID tab Cephalexin [Keflex] 500 mg PO BID #12 cap lamoTRIgine [LaMICtal] 200 mg PO BID #60 tab Lurasidone HCl [Latuda] 120 mg PO DAILY #30 tab Melatonin 5 mg PO HS tablet Desvenlafaxine Succinate [Pristiq ER] 50 mg PO DAILY #30 tab.er.24h Continue Butalb/APAP/Caff 50-325-40Mg [Fioricet 50-325-40] 1 tab PO Q6H PRN PRN Reason: Migraine Headache Omeprazole [PriLOSEC] 20 mg PO AC-BRKFST Pregabalin [Lyrica] 150 mg PO BID Lisinopril [Zestril] 5 mg PO DAILY Lacosamide [Vimpat] 200 mg PO BID Cyclobenzaprine [Flexeril] 5 mg PO TID PRN tab PRN Reason: Muscle Spasm Nortriptyline [Pamelor] 25 mg PO DAILY Discontinued Prochlorperazine [Compazine] 5 mg PO BID PRN PRN Reason: Nausea DULoxetine HCL [Cymbalta] 90 mg PO DAILY #45 capsule.dr lamoTRIgine [LaMICtal] 100 mg PO BID #60 tab Doxepin [SINEquan] 10 mg PO HS #30 cap Lurasidone [Latuda] 80 mg PO DAILY #30 tab Discharge Medication List Butalb/APAP/Caff 50-325-40Mg [Fioricet 50-325-40] 1 tab PO Q6H PRN 08/27/16 [History] Omeprazole [PriLOSEC] 20 mg PO AC-BRKFST 01/17/17 [History] Lacosamide [Vimpat] 200 mg PO BID 01/30/19 [History] Lisinopril [Zestril] 5 mg PO DAILY 01/30/19 [History] Pregabalin [Lyrica] 150 mg PO BID 01/30/19 [History] Cyclobenzaprine [Flexeril] 5 mg PO TID PRN tab 02/04/19 [Rx] Nortriptyline [Pamelor] 25 mg PO DAILY 02/15/19 [History] Cephalexin [Keflex] 500 mg PO BID #12 cap 03/01/19 [Rx] Desvenlafaxine Succinate [Pristiq ER] 50 mg PO DAILY #30 tab.er.24h 03/01/19 [Rx] Lurasidone HCl [Latuda] 120 mg PO DAILY #30 tab 03/01/19 [Rx] Melatonin 5 mg PO HS tablet 03/01/19 [Rx] acetaZOLAMIDE [Diamox] 250 mg PO BID tab 03/01/19 [Rx] lamoTRIgine [LaMICtal] 200 mg PO BID #60 tab 03/01/19 [Rx] Follow up Appointment(s)/Referral(s): [facility] [Outside] - 03/01/19 10:00 am (03-04-19 @ 10:[address] Kelly 03-08-19 @ 1:00 with Shayy Argueta ) Jonathan Kulkarni MD [Primary Care Provider] - 1-2 days Patient Instructions/Handouts: Depression (DC), Suicide Prevention (DC) Activity/Diet/Wound Care/Special Instructions: Activity and diet as tolerated. No guns or weapons in the home. Refrain from alcohol and street drugs, not prescribed by your physician. Take all medications as prescribed. Attend all follow up appointments as scheduled. If in need of medications please go to your primary care physician, or your out patient psychiatric provider. If in crisis, please call
== END 2019-03-01 12:16 | disposition home or self-care (01) | DRG 885 ==
LOC: EC 13:40 → 3MHU 16:36
PROVIDERS: ADMIT Psychiatry & Neurology Psychiatry; ATTEND Psychiatry & Neurology Psychiatry
DX: F31.30 Bipolar disorder, current episode depressed, mild or moderate severity, unspecified (principal); R45.851 Suicidal ideations; F12.10 Cannabis abuse, uncomplicated; F17.210 Nicotine dependence, cigarettes, uncomplicated; F60.3 Borderline personality disorder; F60.89 Other specific personality disorders; G40.909 Epilepsy, unspecified, not intractable, without status epilepticus; G43.909 Migraine, unspecified, not intractable, without status migrainosus; I10 Essential (primary) hypertension; K02.9 Dental caries, unspecified; K21.9 Gastro-esophageal reflux disease without esophagitis; M79.7 Fibromyalgia; Z56.0 Unemployment, unspecified; Z79.899 Other long term (current) drug therapy; Z81.8 Family history of other mental and behavioral disorders; Z86.19 Personal history of other infectious and parasitic diseases; Z91.5 Personal history of self-harm; F11.11 Opioid abuse, in remission; F15.11 Other stimulant abuse, in remission; F13.10 Sedative, hypnotic or anxiolytic abuse, uncomplicated; M79.641 Pain in right hand; X83.8XXA Intentional self-harm by other specified means, initial encounter
CPT/HCPCS: 80053; 80061; 80306; 82075; 83036; 84443; 85025; 99285

== ENCOUNTER 2019-05-27 11:03 | Emergency (ER) | payer MEDICARE, OTHER ==
[2019-05-27 11:06] VITALS: RESP 16
--- NOTE | 2019-05-27 11:36 | ED ---
General Adult HPI - General Chief complaint: Psychiatric Symptoms Stated complaint: Petition Time Seen by Provider: 05/27/19 11:18 Source: patient, RN notes reviewed Mode of arrival: ambulatory Limitations: no limitations - History of Present Illness Initial comments: Patient is a pleasant 38-year-old female presenting to the emergency department for court ordered evaluation post missing counseling appointments. Patient states she did cancel 2 or 3 of her counseling appointment. Patient states this was because she was trying to get into a different counselor who she previously get along well with. Patient states she is court ordered secondary to history of overdose. Patient denies suicidal or homicidal thoughts. No hallucinations. No alcohol or street drug use except for marijuana. No physical complaints. Patient has been eating and drinking well. - Related Data Home Medications Medication Instructions Recorded Confirmed Butalb/APAP/Caff 50-325-40Mg 1 tab PO TID PRN 08/27/16 05/27/19 [Fioricet 50-325-40] Omeprazole [PriLOSEC] 20 mg PO AC-BRKFST 01/17/17 05/27/19 Lisinopril [Zestril] 5 mg PO DAILY 01/30/19 05/27/19 Cyclobenzaprine [Flexeril] 10 mg PO BID PRN 05/27/19 05/27/19 Gabapentin [Neurontin] 100 mg PO TID 05/27/19 05/27/19 Lacosamide [Vimpat] 100 mg PO BID 05/27/19 05/27/19 Venlafaxine HCl [Effexor XR] 75 mg PO DAILY 05/27/19 05/27/19 lamoTRIgine [LaMICtal] 200 mg PO DAILY 05/27/19 05/27/19 Previous Rx's Medication Instructions Recorded Lurasidone HCl [Latuda] 120 mg PO DAILY #30 tab 03/01/19 Allergies Allergy/AdvReac Type Severity Reaction Status Date / Time divalproex sodium Allergy Vomiting Verified 05/27/19 11:07 [From Depakote] cortisone AdvReac causes Verified 05/27/19 11:07 increased pain Review of Systems ROS Statement: Those systems with pertinent positive or pertinent negative responses have been documented in the HPI. ROS Other: All systems not noted in ROS Statement are negative. Constitutional: Denies: fever Eyes: Denies: eye pain ENT: Denies: ear pain Respiratory: Denies: cough Cardiovascular: Denies: chest pain Endocrine: Denies: fatigue Gastrointestinal: Denies: abdominal pain Genitourinary: Denies: dysuria Musculoskeletal: Denies: back pain Skin: Denies: rash Neurological: Denies: weakness Past Medical History Past Medical History: Neurologic Disorder, Seizure Disorder Additional Past Medical History / Comment(s): h/o lymes disease? h/o pseudotumor cerebri? History of Any Multi-Drug Resistant Organisms: MRSA Date of last positivie culture/infection: 2001 MDRO Source:: head Past Surgical History: Section, Orthopedic Surgery Additional Past Surgical History / Comment(s): right foot, right shoulder, Past Anesthesia/Blood Transfusion Reactions: Motion Sickness Past Psychological History: Anxiety, Bipolar Smoking Status: Current every day smoker - Past Family History Mother Family Medical History: No Reported History General Exam Limitations: no limitations General appearance: alert, in no apparent distress Head exam: Present: atraumatic Eye exam: Present: normal appearance, PERRL ENT exam: Present: normal oropharynx Neck exam: Present: normal inspection Respiratory exam: Present: normal lung sounds bilaterally Cardiovascular Exam: Present: regular rate, normal rhythm GI/Abdominal exam: Present: soft. Absent: tenderness Extremities exam: Present: normal inspection. Absent: pedal edema, calf tenderness Back exam: Present: normal inspection Neurological exam: Present: alert Psychiatric exam: Present: normal affect, normal mood Skin exam: Present: normal color Course Vital Signs 05/27/19 11:04 Temperature 98.1 F Pulse Rate 87 Respiratory 16 Rate Blood Pressure 122/85 O2 Sat by Pulse 97 Oximetry Medical Decision Making - Medical Decision Making Patient was seen by mental health services with plan for discharge. - Lab Data Lab Results 05/27/19 Range/Units 13:13 Urine Opiates Screen Not Detected (NotDetected) Ur Oxycodone Screen Not Detected (NotDetected) Urine Methadone Screen Not Detected (NotDetected) Ur Propoxyphene Screen Not Detected (NotDetected) Ur Barbiturates Screen Not Detected (NotDetected) U Tricyclic Antidepress Not Detected (NotDetected) Ur Phencyclidine Scrn Not Detected (NotDetected) Ur Amphetamines Screen Not Detected (NotDetected) U Methamphetamines Scrn Not Detected (NotDetected) U Benzodiazepines Scrn Not Detected (NotDetected) Urine Cocaine Screen Not Detected (NotDetected) U Marijuana (THC) Screen Detected H (NotDetected) Disposition Clinical Impression: Depression Disposition: HOME SELF-CARE Condition: Stable Instructions (If sedation given, give patient instructions): Depression (ED) Additional Instructions: Please follow-up with mental health services as directed. Please do not miss appointments. Please take medication as directed. Return for increased depression, thoughts of self-harm, worsening symptoms or other concerns. Is patient prescribed a controlled substance at d/c from ED?: No Referrals: Jonathan Kulkarni MD [Primary Care Provider] - 1-2 days Time of Disposition: 14:47
[2019-05-27 13:39] LABS: Amphetamine Screen,Urine Not Detected (NotDetected); Barbiturate Screen,Urine Not Detected (NotDetected); Benzodiazepines Screen,Urine Not Detected (NotDetected); Cocaine Screen,Urine Not Detected (NotDetected); Methadone Screen, Urine Not Detected (NotDetected); Opiate Screen,Urine Not Detected (NotDetected); Oxycodone Screen, Urine Not Detected (NotDetected); Phencyclidine Screen,Urine Not Detected (NotDetected); Tricyclic Antidepressant,Urine Not Detected (NotDetected); Urn Cannabinoid Scrn Detected (NotDetected)
[2019-05-27 15:36] VITALS: BP 142/81; PULSE 84; TEMP 97.9
== END 2019-05-27 15:34 | disposition home or self-care (01) ==
LOC: EC 11:03
DX: F32.9 Major depressive disorder, single episode, unspecified (principal); G40.909 Epilepsy, unspecified, not intractable, without status epilepticus; F17.200 Nicotine dependence, unspecified, uncomplicated; Z79.899 Other long term (current) drug therapy; Z88.8 Allergy status to other drugs, medicaments and biological substances
CPT/HCPCS: 80306; 82075; 99284

== ENCOUNTER 2020-03-20 12:12 | Emergency (ER) | payer OTHER ==
[2020-03-20 12:23] VITALS: BP 109/76; PULSE 80; RESP 18; TEMP 98.1
[2020-03-20] MEDS ORDERED: AMOXIC-POT CLAV 875MG STARTER PACK 2 TAB BTL PO STA (12:46)
--- NOTE | 2020-03-20 12:47 | ED ---
ENT HPI - General Chief complaint: Dental/Oral Stated complaint: jaw/ear pain Time Seen by Provider: 03/20/20 12:27 Source: patient Mode of arrival: ambulatory Limitations: no limitations - History of Present Illness Initial comments: 39yo female with history of previous tooth abscesses presenting for right upper tooth and ear pain. Patient states she has pain of the right upper jaw she states she believes associates with her tooth she's had to physically is radiating into the ear she denies any chest pain shortness of breath. Patient has a facial swelling swelling below the tongue or swelling of the neck such as having oral secretions, denies drainage of ear, or pain swelling behind ear, denies hearing loss or ringing of the ears. Patient denies fever or rashes. Patient has no additional complaints. Upon arrival patient pt appears well nontoxic. - Related Data Home Medications Medication Instructions Recorded Confirmed Butalb/APAP/Caff 50-325-40Mg 1 tab PO TID PRN 08/27/16 05/27/19 [Fioricet 50-325-40] Omeprazole [PriLOSEC] 20 mg PO AC-BRKFST 01/17/17 05/27/19 Lisinopril [Zestril] 5 mg PO DAILY 01/30/19 05/27/19 Cyclobenzaprine [Flexeril] 10 mg PO BID PRN 05/27/19 05/27/19 Gabapentin [Neurontin] 100 mg PO TID 05/27/19 05/27/19 Lacosamide [Vimpat] 100 mg PO BID 05/27/19 05/27/19 Venlafaxine HCl [Effexor XR] 75 mg PO DAILY 05/27/19 05/27/19 lamoTRIgine [LaMICtal] 200 mg PO DAILY 05/27/19 05/27/19 Previous Rx's Medication Instructions Recorded Lurasidone HCl [Latuda] 120 mg PO DAILY #30 tab 03/01/19 Amoxicillin/Potassium Clav 1 tab PO Q12HR 7 Days #14 tab 03/20/20 [Augmentin 875-125 Tablet] Allergies Allergy/AdvReac Type Severity Reaction Status Date / Time divalproex sodium Allergy Vomiting Verified 03/20/20 12:23 [From Depakote] cortisone AdvReac causes Verified 03/20/20 12:23 increased pain Review of Systems ROS Statement: Those systems with pertinent positive or pertinent negative responses have been documented in the HPI. ROS Other: All systems not noted in ROS Statement are negative. Past Medical History Past Medical History: Neurologic Disorder, Seizure Disorder Additional Past Medical History / Comment(s): migraines,. h/o lymes disease. h/o pseudotumor cerebri History of Any Multi-Drug Resistant Organisms: MRSA Date of last positivie culture/infection: 2001 MDRO Source:: head Past Surgical History: Section, Orthopedic Surgery Additional Past Surgical History / Comment(s): right foot, right shoulder, lumbar shunt Past Anesthesia/Blood Transfusion Reactions: Motion Sickness Past Psychological History: Anxiety, Bipolar Smoking Status: Current every day smoker Past Alcohol Use History: None Reported Past Drug Use History: Marijuana - Past Family History Mother Family Medical History: No Reported History General Exam - General Exam Comments Initial Comments: General: The patient is awake and alert, in no distress Eye: Pupils are equal, round and reactive to light, extra-ocular movements are intact. No nystagmus. There is normal conjunctiva bilaterally. No signs of icterus. Ears, nose, mouth and throat: There are moist mucous membranes and no oral lesions. No tenderness to palpation of the mastoid no erythema of the tympanic membrane--no drainage, no swelling of the EAC. Patient has no pain to palpation of the mastoid. Patient has no evidence of swelling of the gums, pain to percussion tooth #1/2. Patient has no swelling below the tongue or of the neck. tolerating oral secretions, no trismis, no click or palpated catch of the TMJ. Neck: The neck is supple, there is no tenderness or JVD. Cardiovascular: There is a regular rate and rhythm. No murmur, rub or gallop is appreciated. Respiratory: Lungs are clear to auscultation, respirations are non-labored, breath sounds are equal. No wheezes, stridor, rales, or rhonchi. Musculoskeletal: Normal ROM, no tenderness. Strength 5/5. Sensation intact. Pulses equal bilaterally 2+. Neurological: A&O x 3. CN II-XII intact grossly, There are no obvious motor or sensory deficits. Coordination appears grossly intact. Speech is normal. Skin: Skin is warm and dry and no rashes or lesions are noted. Psychiatric: Cooperative, appropriate mood & affect, normal judgment. Limitations: no limitations Course Vital Signs 03/20/20 12:20 Temperature 98.1 F Pulse Rate 80 Respiratory 18 Rate Blood Pressure 109/76 O2 Sat by Pulse 99 Oximetry Medical Decision Making - Medical Decision Making Female presents today for chief complaint of right upper jaw/tooth pain. No abscess. No TMJ dysfunction noted. Does not appear toxic. No additional complaint. Poor dentition. EAr exam unremarkable. Pt initiated on antibiotics. she denied . Patient is to f/u with PCP and dentist in next week. Return parameters were discussed the patient was discharged appearing well. Disposition Clinical Impression: Pain, dental, Jaw pain Disposition: HOME SELF-CARE Condition: Good Instructions (If sedation given, give patient instructions): Dental Abscess (ED), Toothache (ED) Additional Instructions: Please use medication as discussed. Please follow-up with family doctor in the next 2 days. Please return to emergency room if the symptoms increase or worsen or for any other concerns. Prescriptions: Amoxicillin/Potassium Clav [Augmentin 875-125 Tablet] 1 tab PO Q12HR 7 Days #14 tab Is patient prescribed a controlled substance at d/c from ED?: No Referrals: Jonathan Kulkarni MD [Primary Care Provider] - 1-2 days Time of Disposition: 12:47
[2020-03-20] MEDS ORDERED: ACET/COD 300 MG/30 MG STARTER PACK 6 TAB BTL PO STA (13:07)
== END 2020-03-20 13:11 | disposition home or self-care (01) ==
LOC: EC 12:12
DX: K08.89 Other specified disorders of teeth and supporting structures (principal); R68.84 Jaw pain; H92.09 Otalgia, unspecified ear; R22.0 Localized swelling, mass and lump, head; G40.909 Epilepsy, unspecified, not intractable, without status epilepticus; F41.9 Anxiety disorder, unspecified; F17.200 Nicotine dependence, unspecified, uncomplicated; Z86.14 Personal history of Methicillin resistant Staphylococcus aureus infection; Z79.899 Other long term (current) drug therapy; Z88.8 Allergy status to other drugs, medicaments and biological substances
CPT/HCPCS: 99283

== ENCOUNTER 2020-04-14 22:45 | Emergency (ER) | payer OTHER ==
[2020-04-14 22:54] VITALS: RESP 18; TEMP 98.3
[2020-04-14] MEDS ORDERED: SODIUM CHLORIDE 0.9% 1,000 ML IV ONE (23:17)
[2020-04-14] MEDS ORDERED: METOCLOPRAMIDE 5 MG/ML 2 ML VIAL IVP STA (23:17)
[2020-04-14] MEDS ORDERED: diphenhydrAMINE 50 MG/ML 1 ML VIAL IVP STA (23:17)
[2020-04-14 23:31] LABS: Basophils % (A) 0 %; Eosinophils # (A) 0.2 k/uL (0-0.7); Eosinophils % (A) 1 %; HCT 35.9 % (34.0-46.0); HGB 11.4 gm/dL (11.4-16.0); Lymphocytes # (A) 1.7 k/uL (1.0-4.8); Lymphocytes % (A) 15 %; MCH 30.7 pg (25.0-35.0); MCHC 31.7 g/dL (31.0-37.0); MCV 97.1 fL (80.0-100.0); Mean Platelet Volume 7.6; Monocytes # (A) 0.4 k/uL (0-1.0); Monocytes % (A) 3 %; Neutrophils # (A) 9.1 k/uL (1.3-7.7); Neutrophils % (A) 79 %; Platelet Count 344 k/uL (150-450); RDW 14.8 % (11.5-15.5); WBC 11.5 k/uL (3.8-10.6)
[2020-04-14 23:35] LABS: Potassium 3.5 mmol/L (3.5-5.1)
[2020-04-14 23:36] LABS: ALT 36 U/L (4-34); AST 36 U/L (14-36); African American GFR (CKD) 75 (>60 ml/min/1.73 sqM); Albumin 4.4 g/dL (3.5-5.0); Alcohol <10 mg/dL; Alkaline Phosphatase 78 U/L (38-126); Anion Gap 11 mmol/L; Blood Urea Nitrogen 20 mg/dL (7-17); Calcium 9.3 mg/dL (8.4-10.2); Carbon Dioxide 21 mmol/L (22-30); Chloride 106 mmol/L (98-107); Glucose 160 mg/dL (74-99); Non-African American GFR(CKD) 65 (>60 ml/min/1.73 sqM); Sodium 138 mmol/L (137-145); Total Bilirubin 0.2 mg/dL (0.2-1.3); Total Protein 7.4 g/dL (6.3-8.2)
[2020-04-14 23:55] LABS: Appearance,Urine Clear (Clear); Bilirubin,Urine Negative (Negative); Blood,Urine Negative (Negative); Color,Urine Yellow; Glucose,Urine (UA) Negative (Negative); Hyaline Casts,Urine 77 /lpf (0-2); Ketones,Urine Negative (Negative); Leukocyte Esterase,Urine Negative (Negative); Mucus,Urine Rare /hpf; Nitrite,Urine Negative (Negative); PH, Urine 5.5 (5.0-8.0); Protein,Urine 1+ (Negative); RBC,Urine 2 /hpf (0-5); Specific Gravity,Urine 1.048 (1.001-1.035); Squamous Epithelial Cell,Urine 2 /hpf (0-4); Urobilinogen,Urine <2.0 mg/dL (<2.0); WBC,Urine 1 /hpf (0-5)
[2020-04-15 00:01] LABS: Amphetamine Screen,Urine Not Detected (NotDetected); Barbiturate Screen,Urine Detected (NotDetected); Benzodiazepines Screen,Urine Detected (NotDetected); Cocaine Screen,Urine Not Detected (NotDetected); Methadone Screen, Urine Not Detected (NotDetected); Opiate Screen,Urine Not Detected (NotDetected); Oxycodone Screen, Urine Not Detected (NotDetected); Phencyclidine Screen,Urine Detected (NotDetected); Tricyclic Antidepressant,Urine Detected (NotDetected); Urn Cannabinoid Scrn Detected (NotDetected)
[2020-04-15] MEDS ORDERED: PROMETHAZINE INJ 25 MG in SODIUM CHLORIDE 0.9% 50 ML IVPB STA (00:35)
[2020-04-15] MEDS ORDERED: HYDROmorphone 0.5 MG/0.5 ML SYRINGE IVP STA (00:35)
--- NOTE | 2020-04-15 00:57 | ED ---
Seizure HPI - General Chief Complaint: Seizure Stated Complaint: Seizure Time Seen by Provider: 04/14/20 23:03 Source: patient, family Mode of arrival: ambulatory Limitations: no limitations - History of Present Illness Initial Comments: This patient is a 39-year-old woman with history of seizure disorder who presents to have evaluation after she had a seizure tonight. Patient states that her last seizure was approximately 3 weeks ago. She has had intermittent seizures despite taking her usual medical regimen. Patient states that over the past 2 days she has not been sleeping well due to having a migraine. She states she does get chronic migraines and that this is typical of her headaches though is not improving with the home medications. Patient states that as result she has not been sleeping well. The headache is bifrontal which is typical of her seizures. It is not the worst headache of life. MD Complaint: seizure Onset/Timin -: hour(s) Description of Episode: loss of consciousness, tonic-clonic movement -: second(s) Seizure History: known seizure disorder Place: home Possible Precipitating Event: lack of sleep Treatments Prior to Arrival: none - Related Data Home Medications Medication Instructions Recorded Confirmed Butalb/APAP/Caff 50-325-40Mg 1 tab PO TID PRN 08/27/16 05/27/19 [Fioricet 50-325-40] Omeprazole [PriLOSEC] 20 mg PO AC-BRKFST 01/17/17 05/27/19 Lisinopril [Zestril] 5 mg PO DAILY 01/30/19 05/27/19 Cyclobenzaprine [Flexeril] 10 mg PO BID PRN 05/27/19 05/27/19 Gabapentin [Neurontin] 100 mg PO TID 05/27/19 05/27/19 Lacosamide [Vimpat] 100 mg PO BID 05/27/19 05/27/19 Venlafaxine HCl [Effexor XR] 75 mg PO DAILY 05/27/19 05/27/19 lamoTRIgine [LaMICtal] 200 mg PO DAILY 05/27/19 05/27/19 Previous Rx's Medication Instructions Recorded Lurasidone HCl [Latuda] 120 mg PO DAILY #30 tab 03/01/19 Amoxicillin/Potassium Clav 1 tab PO Q12HR 7 Days #14 tab 03/20/20 [Augmentin 875-125 Tablet] Allergies Allergy/AdvReac Type Severity Reaction Status Date / Time divalproex sodium Allergy Vomiting Verified 04/14/20 22:54 [From Depakote] cortisone AdvReac causes Verified 04/14/20 22:54 increased pain Review of Systems ROS Statement: Those systems with pertinent positive or pertinent negative responses have been documented in the HPI. ROS Other: All systems not noted in ROS Statement are negative. Constitutional: Denies: fever, chills, weakness Eyes: Denies: vision change Respiratory: Denies: cough, dyspnea Cardiovascular: Denies: chest pain, palpitations Gastrointestinal: Denies: abdominal pain, vomiting, diarrhea Genitourinary: Denies: dysuria, hematuria Musculoskeletal: Denies: back pain Skin: Denies: rash Neurological: Reports: headache. Denies: weakness, numbness, paresthesias, confusion Past Medical History Past Medical History: Neurologic Disorder, Seizure Disorder Additional Past Medical History / Comment(s): migraines,. h/o lymes disease. h/o pseudotumor cerebri History of Any Multi-Drug Resistant Organisms: MRSA Date of last positivie culture/infection: 2001 MDRO Source:: head Past Surgical History: Section, Orthopedic Surgery Additional Past Surgical History / Comment(s): right foot, right shoulder, lumbar shunt Past Anesthesia/Blood Transfusion Reactions: Motion Sickness Past Psychological History: Anxiety, Bipolar Smoking Status: Current every day smoker Past Alcohol Use History: None Reported Past Drug Use History: Marijuana - Past Family History Mother Family Medical History: No Reported History General Exam Limitations: no limitations General appearance: alert, in no apparent distress Head exam: Present: atraumatic, normocephalic Eye exam: Present: normal appearance, PERRL, EOMI. Absent: scleral icterus, conjunctival injection, nystagmus ENT exam: Present: normal oropharynx Neck exam: Present: normal inspection, full ROM. Absent: tenderness, meni ngismus Respiratory exam: Present: normal lung sounds bilaterally. Absent: respiratory distress, wheezes, rales, rhonchi, stridor Cardiovascular Exam: Present: regular rate, normal rhythm, normal heart sounds. Absent: systolic murmur, diastolic murmur, rubs, gallop GI/Abdominal exam: Present: soft. Absent: tenderness Extremities exam: Present: normal inspection Neurological exam: Present: alert, oriented X3, CN II-XII intact. Absent: motor sensory deficit Skin exam: Present: warm, dry, intact, normal color. Absent: rash Course Vital Signs 04/14/20 22:52 Temperature 98.3 F Pulse Rate 96 Respiratory 18 Rate Blood Pressure 114/72 O2 Sat by Pulse 98 Oximetry Medical Decision Making - Medical Decision Making Patient is a 39-year-old woman with history of chronic headaches and also seizure disorder. She has had improvement with analgesic here and would like to go home. Discussed appropriate further care and follow-up as well as following with Dr. Cassidy, her neurologist. Also discussed return parameters. - Lab Data Result diagrams: 04/14/20 23:14 04/14/20 23:14 Lab Results 04/14/20 04/14/20 04/14/20 Range/Units 23:14 23:14 23:41 WBC 11.5 H (3.8-10.6) k/uL RBC 3.70 L (3.80-5.40) m/uL Hgb 11.4 (11.4-16.0) gm/dL Hct 35.9 (34.0-46.0) % MCV 97.1 (80.0-100.0) fL MCH 30.7 (25.0-35.0) pg MCHC 31.7 (31.0-37.0) g/dL RDW 14.8 (11.5-15.5) % Plt Count 344 (150-450) k/uL Neutrophils % 79 % Lymphocytes % 15 % Monocytes % 3 % Eosinophils % 1 % Basophils % 0 % Neutrophils # 9.1 H (1.3-7.7) k/uL Lymphocytes # 1.7 (1.0-4.8) k/uL Monocytes # 0.4 (0-1.0) k/uL Eosinophils # 0.2 (0-0.7) k/uL Basophils # 0.0 (0-0.2) k/uL Sodium 138 (137-145) mmol/L Potassium 3.5 (3.5-5.1) mmol/L Chloride 106 (98-107) mmol/L Carbon Dioxide 21 L (22-30) mmol/L Anion Gap 11 mmol/L BUN 20 H (7-17) mg/dL Creatinine 1.09 H (0.52-1.04) mg/dL Est GFR (CKD-EPI)AfAm 75 (>60 ml/min/1.73 sqM) Est GFR (CKD-EPI)NonAf 65 (>60 ml/min/1.73 sqM) Glucose 160 H (74-99) mg/dL Calcium 9.3 (8.4-10.2) mg/dL Total Bilirubin 0.2 (0.2-1.3) mg/dL AST 36 (14-36) U/L ALT 36 H (4-34) U/L Alkaline Phosphatase 78 (38-126) U/L Total Protein 7.4 (6.3-8.2) g/dL Albumin 4.4 (3.5-5.0) g/dL Urine Color Yellow Urine Appearance Clear (Clear) Urine pH 5.5 (5.0-8.0) Ur Specific [place] 1.048 H (1.001-1.035) Urine Protein 1+ H (Negative) Urine Glucose (UA) Negative (Negative) Urine Ketones Negative (Negative) Urine Blood Negative (Negative) Urine Nitrite Negative (Negative) Urine Bilirubin Negative (Negative) Urine Urobilinogen <2.0 (<2.0) mg/dL Ur Leukocyte Esterase Negative (Negative) Urine RBC 2 (0-5) /hpf Urine WBC 1 (0-5) /hpf Ur Squamous Epith Cells 2 (0-4) /hpf Hyaline Casts 77 H (0-2) /lpf Urine Mucus Rare H (None) /hpf Urine Opiates Screen Not Detected (NotDetected) Ur Oxycodone Screen Not Detected (NotDetected) Urine Methadone Screen Not Detected (NotDetected) Ur Propoxyphene Screen Not Detected (NotDetected) Ur Barbiturates Screen Detected H (NotDetected) U Tricyclic Antidepress Detected H (NotDetected) Ur Phencyclidine Scrn Detected H (NotDetected) Ur Amphetamines Screen Not Detected (NotDetected) U Methamphetamines Scrn Not Detected (NotDetected) U Benzodiazepines Scrn Detected H (NotDetected) Urine Cocaine Screen Not Detected (NotDetected) U Marijuana (THC) Screen Detected H (NotDetected) Serum Alcohol <10 mg/dL - EKG Data -: EKG Interpreted by Ok EKG shows normal: sinus rhythm, axis (Normal), intervals (Normal), QRS complexes (Normal) Rate: normal (Rate 89 bpm) Interpretation: nonspecific ST-T wave changes Disposition Clinical Impression: Generalized seizure, Headache Disposition: HOME SELF-CARE Condition: Good Instructions (If sedation given, give patient instructions): Migraine Headache (ED), Recurrent Seizures in Adults (ED) Is patient prescribed a controlled substance at d/c from ED?: No Referrals: Jonathan Kulkarni MD [Primary Care Provider] - 1-2 days Michael Cassidy MD [Medical Doctor] - 1-2 days
[2020-04-15 02:11] VITALS: BP 112/71; PULSE 80
== END 2020-04-15 01:30 | disposition home or self-care (01) ==
LOC: EC 22:45
DX: G40.309 Generalized idiopathic epilepsy and epileptic syndromes, not intractable, without status epilepticus (principal); G43.909 Migraine, unspecified, not intractable, without status migrainosus; F41.9 Anxiety disorder, unspecified; F31.9 Bipolar disorder, unspecified; F17.200 Nicotine dependence, unspecified, uncomplicated; Z79.899 Other long term (current) drug therapy; Z88.8 Allergy status to other drugs, medicaments and biological substances
CPT/HCPCS: 36415; 93005; 80053; 85025; 81001; 80306; 99284; 96365; 96375 ×3; 96361; G0480; J1200; J2550; J2765; J1170; 80320

== ENCOUNTER 2020-05-08 17:27 | Emergency (ER) | payer OTHER ==
[2020-05-08] MEDS ORDERED: SODIUM CHLORIDE 0.9% 1,000 ML IV ONE (18:07)
[2020-05-08] MEDS ORDERED: diphenhydrAMINE 50 MG/ML 1 ML VIAL IVP STA (18:07)
[2020-05-08] MEDS ORDERED: KETOROLAC 30 MG/ML 1 ML VIAL IVP STA (18:07)
[2020-05-08] MEDS ORDERED: METOCLOPRAMIDE 5 MG/ML 2 ML VIAL IVP STA (18:07)
[2020-05-08] MEDS ORDERED: DIHYDROERGOTAMINE MESYLATE 1 MG/ML 1 ML AMP IVP STA (19:15)
--- NOTE | 2020-05-08 19:50 | ED ---
Headache HPI - General Chief Complaint: Headache Stated Complaint: Migrane Time Seen by Provider: 05/08/20 17:46 Mode of arrival: ambulatory Limitations: no limitations - History of Present Illness Initial Comments: 39-year-old female patient with past medical history significant for migraines, seizure disorder, pseudotumor cerebri presents to the emergency department today for evaluation of migraine headache. Patient states that her headache started this morning and does encompass her entire head. States it feels like a lot of pressure. States she is having some blurry vision and nausea with this. Denies any dizziness or weakness. Denies numbness or tingling to her extremities. Patient states his symptoms are consistent with her usual migraine pattern. She did take her home medications without relief. These included nortriptyline and Fioricet. She denies any recent head injury, fever, or chills. Patient denies any recent rash, cough, shortness of breath, chest pain, abdominal pain, diarrhea, constipation, back pain, numbness, tingling, dizziness, weakness, hematuria, dysuria, urinary urgency, urinary frequency, or any other complaints. - Related Data Home Medications Medication Instructions Recorded Confirmed Butalb/APAP/Caff 50-325-40Mg 1 tab PO TID PRN 08/27/16 05/27/19 [Fioricet 50-325-40] Omeprazole [PriLOSEC] 20 mg PO AC-BRKFST 01/17/17 05/27/19 Lisinopril [Zestril] 5 mg PO DAILY 01/30/19 05/27/19 Cyclobenzaprine [Flexeril] 10 mg PO BID PRN 05/27/19 05/27/19 Gabapentin [Neurontin] 100 mg PO TID 05/27/19 05/27/19 Lacosamide [Vimpat] 100 mg PO BID 05/27/19 05/27/19 Venlafaxine HCl [Effexor XR] 75 mg PO DAILY 05/27/19 05/27/19 lamoTRIgine [LaMICtal] 200 mg PO DAILY 05/27/19 05/27/19 Previous Rx's Medication Instructions Recorded Lurasidone HCl [Latuda] 120 mg PO DAILY #30 tab 03/01/19 Amoxicillin/Potassium Clav 1 tab PO Q12HR 7 Days #14 tab 05/25/20 [Augmentin 875-125 Tablet] Allergies Allergy/AdvReac Type Severity Reaction Status Date / Time divalproex sodium Allergy Vomiting Verified 05/08/20 17:45 [From Depakote] cortisone AdvReac causes Verified 05/08/20 17:45 increased pain Review of Systems ROS Statement: Those systems with pertinent positive or pertinent negative responses have been documented in the HPI. ROS Other: All systems not noted in ROS Statement are negative. Past Medical History Past Medical History: Neurologic Disorder, Seizure Disorder Additional Past Medical History / Comment(s): migraines,. h/o lymes disease. h/o pseudotumor cerebri History of Any Multi-Drug Resistant Organisms: MRSA Date of last positivie culture/infection: 2001 MDRO Source:: head Past Surgical History: Section, Orthopedic Surgery Additional Past Surgical History / Comment(s): right foot, right shoulder, lumb ar shunt Past Anesthesia/Blood Transfusion Reactions: Motion Sickness Past Psychological History: Anxiety, Bipolar Past Alcohol Use History: None Reported Past Drug Use History: Marijuana - Past Family History Mother Family Medical History: No Reported History General Exam Limitations: no limitations General appearance: alert, in no apparent distress, other (This is a well-dev eloped, well-nourished adult female patient in no acute distress. Vital signs upon presentation are temperature 98.7F, pulse 75, respirations 18, blood pressure 135/87, pulse ox 98% on room air.) Eye exam: Present: normal appearance, PERRL, EOMI. Absent: scleral icterus, conjunctival injection, nystagmus, periorbital swelling ENT exam: Present: normal exam, normal oropharynx, mucous membranes moist Respiratory exam: Present: normal lung sounds bilaterally. Absent: respiratory distress, wheezes, rales, rhonchi, stridor Cardiovascular Exam: Present: regular rate, normal rhythm, normal heart sounds. Absent: systolic murmur, diastolic murmur, rubs, gallop, clicks Neurological exam: Present: alert, oriented X3, CN II-XII intact, other (Strength in all 4 extremities is 5/5.) Psychiatric exam: Present: normal affect, normal mood Skin exam: Present: warm, dry, intact, normal color. Absent: rash Course Vital Signs 05/08/20 05/08/20 05/08/20 17:42 19:18 19:58 Temperature 98.7 F 98.4 F Pulse Rate 75 86 69 Respiratory 18 19 18 Rate Blood Pressure 135/87 142/84 134/79 O2 Sat by Pulse 98 99 99 Oximetry Medical Decision Making - Medical Decision Making 39-year-old female patient presents to the emergency department today for evaluation of migraine headache. Physical examination is unremarkable. She is neurologically intact with no focal deficits. States her symptoms are consistent with her usual migraine pattern. Denies this being the worst headache of her life. Patient was given IV fluids, IV medications. Upon reevaluation she does report improvement of symptoms. She is requesting to be discharged so she can go home and sleep. She is instructed follow up with her primary care physician or neurologist for further evaluation as soon as possible. Return parameters were discussed in detail. She verbalizes understanding and agrees with this plan. Disposition Clinical Impression: Migraine Disposition: HOME SELF-CARE Condition: Good Instructions (If sedation given, give patient instructions): Migraine Headache (ED) Additional Instructions: Rest. Increase fluids. Follow-up with your primary care physician for recheck in 1-2 days. Return to the emergency department immediately for any new, worsening, or concerning symptoms. Is patient prescribed a controlled substance at d/c from ED?: No Referrals: Jonathan Kulkarni MD [Primary Care Provider] - 1-2 days Time of Disposition: 19:50
[2020-05-08 20:00] VITALS: BP 134/79; PULSE 69; RESP 18; TEMP 98.4
== END 2020-05-08 19:58 | disposition home or self-care (01) ==
LOC: EC 17:27
DX: G43.909 Migraine, unspecified, not intractable, without status migrainosus (principal); F41.9 Anxiety disorder, unspecified; F31.9 Bipolar disorder, unspecified; F17.200 Nicotine dependence, unspecified, uncomplicated; G40.909 Epilepsy, unspecified, not intractable, without status epilepticus; Z79.899 Other long term (current) drug therapy; Z88.8 Allergy status to other drugs, medicaments and biological substances; Z86.14 Personal history of Methicillin resistant Staphylococcus aureus infection
CPT/HCPCS: 99283; 96374; 96375 ×3; 96361 ×2; J1110; J1200; J2765; J1885

== ENCOUNTER 2020-07-15 16:09 | Emergency (ER) | payer OTHER ==
[2020-07-15 16:19] VITALS: BP 136/90; PULSE 93; RESP 18; TEMP 99.2
[2020-07-15] MEDS ORDERED: ACET/COD 300 MG/30 MG STARTER PACK 6 TAB BTL PO STA (16:50)
[2020-07-15] MEDS ORDERED: PENICILLIN VK 500MG STARTER 4 TAB BTL PO STA (16:50)
--- NOTE | 2020-07-15 16:53 | ED ---
General Adult HPI - General Chief complaint: Dental/Oral Stated complaint: Dental Time Seen by Provider: 07/15/20 16:30 Source: patient, RN notes reviewed Mode of arrival: ambulatory Limitations: no limitations - History of Present Illness Initial comments: Patient is a 39-year-old female who presents for dental pain. Patient has a history of dental pain in this tooth. She reports that this started again today. Patient has an appointment with an oral surgeon in 2 weeks. Patient states her face is somewhat swollen. She denies any swelling under her tongue. Denies any fevers or chills. Denies any neck swelling or stiffness. Denies fevers or chills. Patient has no other complaints at this time including shortness of breath, chest pain, abdominal pain, nausea or vomiting, headache, or visual changes. - Related Data Home Medications Medication Instructions Recorded Confirmed Butalb/APAP/Caff 50-325-40Mg 1 tab PO TID PRN 08/27/16 05/27/19 [Fioricet 50-325-40] Omeprazole [PriLOSEC] 20 mg PO AC-BRKFST 01/17/17 05/27/19 lisinopriL [Zestril] 5 mg PO DAILY 01/30/19 05/27/19 Cyclobenzaprine [Flexeril] 10 mg PO BID PRN 05/27/19 05/27/19 Gabapentin [Neurontin] 100 mg PO TID 05/27/19 05/27/19 Lacosamide [Vimpat] 100 mg PO BID 05/27/19 05/27/19 Venlafaxine HCl [Effexor XR] 75 mg PO DAILY 05/27/19 05/27/19 lamoTRIgine [LaMICtal] 200 mg PO DAILY 05/27/19 05/27/19 Previous Rx's Medication Instructions Recorded Lurasidone HCl [Latuda] 120 mg PO DAILY #30 tab 03/01/19 Amoxicillin/Potassium Clav 1 tab PO Q12HR 7 Days #14 tab 03/20/20 [Augmentin 875-125 Tablet] Penicillin V Potassium [Pen Vee K] 500 mg PO Q6H 10 Days #40 tablet 07/15/20 Allergies Allergy/AdvReac Type Severity Reaction Status Date / Time divalproex sodium Allergy Vomiting Verified 07/15/20 16:20 [From Depakote] cortisone AdvReac causes Verified 07/15/20 16:20 increased pain Review of Systems ROS Statement: Those systems with pertinent positive or pertinent negative responses have been documented in the HPI. ROS Other: All systems not noted in ROS Statement are negative. Past Medical History Past Medical History: Neurologic Disorder, Seizure Disorder Additional Past Medical History / Comment(s): migraines,. h/o lymes disease. h/o pseudotumor cerebri History of Any Multi-Drug Resistant Organisms: MRSA Date of last positivie culture/infection: 2001 MDRO Source:: head Past Surgical History: Section, Orthopedic Surgery Additional Past Surgical History / Comment(s): right foot, right shoulder, lumbar shunt Past Anesthesia/Blood Transfusion Reactions: Motion Sickness Past Psychological History: Anxiety, Bipolar Smoking Status: Current every day smoker Past Alcohol Use History: None Reported, Occasional Past Drug Use History: Marijuana - Past Family History Mother Family Medical History: No Reported History General Exam Limitations: no limitations General appearance: alert, in no apparent distress Head exam: Present: atraumatic, normocephalic, normal inspection Eye exam: Present: normal appearance, PERRL, EOMI. Absent: scleral icterus, conjunctival injection, periorbital swelling ENT exam: Present: mucous membranes moist, TM's normal bilaterally, normal external ear exam, other (Minimal facial edema on the left side). Absent: normal oropharynx (Tenderness noted to tooth 25. There is no abscess with direct visualization or palpation of gumline. No sublingual edema. No trismus.) Neck exam: Present: normal inspection, full ROM. Absent: tenderness, meningismus, lymphadenopathy Respiratory exam: Present: normal lung sounds bilaterally. Absent: respiratory distress, wheezes, rales, rhonchi, stridor Cardiovascular Exam: Present: regular rate, normal rhythm, normal heart sounds. Absent: systolic murmur, diastolic murmur, rubs, gallop, clicks GI/Abdominal exam: Present: soft, normal bowel sounds. Absent: distended, tenderness, guarding, rebound, rigid Course Vital Signs 07/15/20 16:18 Temperature 99.2 F Pulse Rate 93 Respiratory 18 Rate Blood Pressure 136/90 O2 Sat by Pulse 99 Oximetry Medical Decision Making - Medical Decision Making No evidence for abscess. Patient likely has dental infection. Patient was treated with penicillin. Will follow-up with oral surgeon. She will return here if she has any worsening symptoms which were discussed with her. Disposition Clinical Impression: Pain, dental Disposition: HOME SELF-CARE Condition: Good Instructions (If sedation given, give patient instructions): Toothache (ED) Additional Instructions: Please take antibiotic as directed. Please follow-up with your dentist at your scheduled appointment. If you have worsening symptoms such as fevers, difficulty opening the mouth, or any other worsening symptoms return to the emergency room. Prescriptions: Penicillin V Potassium [Pen Vee K] 500 mg PO Q6H 10 Days #40 tablet Is patient prescribed a controlled substance at d/c from ED?: No Referrals: Jonathan Kulkarni MD [Primary Care Provider] - 1-2 days
== END 2020-07-15 17:20 | disposition home or self-care (01) ==
LOC: EC 16:09
DX: K08.89 Other specified disorders of teeth and supporting structures (principal); R22.0 Localized swelling, mass and lump, head; F17.200 Nicotine dependence, unspecified, uncomplicated; F41.9 Anxiety disorder, unspecified; F31.9 Bipolar disorder, unspecified; G40.909 Epilepsy, unspecified, not intractable, without status epilepticus; Z88.8 Allergy status to other drugs, medicaments and biological substances; Z86.14 Personal history of Methicillin resistant Staphylococcus aureus infection
CPT/HCPCS: 99282

== ENCOUNTER 2020-08-05 14:39 | Emergency (ER) | payer OTHER ==
--- NOTE | 2020-08-05 15:11 | ED ---
Headache HPI - General Chief Complaint: Headache Stated Complaint: Migraine Time Seen by Provider: 08/05/20 15:09 Mode of arrival: ambulatory Limitations: no limitations - History of Present Illness Initial Comments: Patient is a 39-year-old female with history of migraines presenting to emergency Department with a chief complaint of migraine. Patient states this started about 3 days ago and is not resolving. Patient reports this is not the worst headache of her life and it was a gradual onset. She does report nausea but no vomiting. Does report photophobia. States injectable Imitrex typically works well for her symptoms but it she ran out of the medication due to insurance purposes. She denies any other symptoms. Denies any neck pain, tenderness, limited range of motion in neck or neck stiffness. - Related Data Home Medications Medication Instructions Recorded Confirmed Butalb/APAP/Caff 50-325-40Mg 1 tab PO TID PRN 08/27/16 05/27/19 [Fioricet 50-325-40] Omeprazole [PriLOSEC] 20 mg PO AC-BRKFST 01/17/17 05/27/19 lisinopriL [Zestril] 5 mg PO DAILY 01/30/19 05/27/19 Cyclobenzaprine [Flexeril] 10 mg PO BID PRN 05/27/19 05/27/19 Gabapentin [Neurontin] 100 mg PO TID 05/27/19 05/27/19 Lacosamide [Vimpat] 100 mg PO BID 05/27/19 05/27/19 Venlafaxine HCl [Effexor XR] 75 mg PO DAILY 05/27/19 05/27/19 lamoTRIgine [LaMICtal] 200 mg PO DAILY 05/27/19 05/27/19 Previous Rx's Medication Instructions Recorded Lurasidone HCl [Latuda] 120 mg PO DAILY #30 tab 03/01/19 Amoxicillin/Potassium Clav 1 tab PO Q12HR 7 Days #14 tab 03/20/20 [Augmentin 875-125 Tablet] Penicillin V Potassium [Pen Vee K] 500 mg PO Q6H 10 Days #40 tablet 07/15/20 Allergies Allergy/AdvReac Type Severity Reaction Status Date / Time divalproex sodium Allergy Vomiting Verified 08/05/20 14:49 [From Depakote] cortisone AdvReac causes Verified 08/05/20 14:49 increased pain Review of Systems ROS Statement: Those systems with pertinent positive or pertinent negative responses have been documented in the HPI. ROS Other: All systems not noted in ROS Statement are negative. Past Medical History Past Medical History: Neurologic Disorder, Seizure Disorder Additional Past Medical History / Comment(s): migraines,. h/o lymes disease. h/o pseudotumor cerebri History of Any Multi-Drug Resistant Organisms: MRSA Date of last positivie culture/infection: 2001 MDRO Source:: head Past Surgical History: Section, Orthopedic Surgery Additional Past Surgical History / Comment(s): right foot, right shoulder, lumbar shunt Past Anesthesia/Blood Transfusion Reactions: Motion Sickness Past Psychological History: Anxiety, Bipolar Smoking Status: Current every day smoker Past Alcohol Use History: None Reported Past Drug Use History: Marijuana - Past Family History Mother Family Medical History: No Reported History General Exam Limitations: no limitations General appearance: alert, in no apparent distress Head exam: Present: atraumatic, normocephalic, normal inspection Eye exam: Present: normal appearance, PERRL, EOMI Pupils: Present: normal accommodation ENT exam: Present: normal exam, normal oropharynx, mucous membranes moist, TM's normal bilaterally, normal external ear exam Neck exam: Present: normal inspection, full ROM. Absent: tenderness, meningismus, lymphadenopathy, thyromegaly, other (Negative Brudzinski sign) Respiratory exam: Present: normal lung sounds bilaterally. Absent: respiratory distress, wheezes, rales Cardiovascular Exam: Present: regular rate, normal rhythm, normal heart sounds Extremities exam: Present: normal inspection, full ROM, normal capillary refill. Absent: tenderness Back exam: Present: normal inspection, full ROM. Absent: tenderness, CVA tenderness (R), CVA tenderness (L) Neurological exam: Present: alert, oriented X3, normal gait Psychiatric exam: Present: normal affect, normal mood Skin exam: Present: warm, dry, intact, normal color Course Vital Signs 08/05/20 08/05/20 14:46 17:20 Temperature 100.6 F H 99.2 F Pulse Rate 90 76 Respiratory 16 18 Rate Blood Pressure 158/103 144/81 O2 Sat by Pulse 99 97 Oximetry Medical Decision Making - Medical Decision Making Patient is a 39-year-old female with history of migraine presenting to the emergency department with chief complaint of migraine. On physical examination, patient is nontoxic appearing. Neurological examination is unremarkable. Patient did have a fever in the ED. She was given Tylenol. Negative Babinski sign. No meningismus or neck stiffness. I recommended laboratory work for patient to rule out any other significant pathologies for headache. Patient declined. Patient only requested 2 doses of Imitrex and wants to be discharged. On reevaluation patient reports some improvement in symptoms and states she will follow up with her primary care. Return parameters thoroughly discussed the patient is a 71 agreeable. Case discussed with physician. Disposition Clinical Impression: Migraine headache Disposition: HOME SELF-CARE Condition: Stable Instructions (If sedation given, give patient instructions): Acute Headache (ED) Additional Instructions: Follow-up with primary care physician. Return to emergency department if symptoms worsen. Is patient prescribed a controlled substance at d/c from ED?: No Referrals: Jonathan Kulkarni MD [Primary Care Provider] - 1-2 days Time of Disposition: 17:35
[2020-08-05] MEDS ORDERED: ACETAMINOPHEN TAB 500 MG TAB PO STA (15:19)
[2020-08-05] MEDS ORDERED: SUMAtriptan succinate 6 MG/0.5 ML VIAL SQ STA ×2 (15:19→17:02)
[2020-08-05] MEDS ORDERED: KETOROLAC 15 MG/ML 1 ML VIAL IVP STA (16:33)
[2020-08-05] MEDS ORDERED: diphenhydrAMINE 50 MG/ML 1 ML VIAL IVP STA (16:33)
[2020-08-05] MEDS ORDERED: METOCLOPRAMIDE 5 MG/ML 2 ML VIAL IVP STA (16:33)
[2020-08-05] MEDS ORDERED: SODIUM CHLORIDE 0.9% 1,000 ML IV STA (16:33)
[2020-08-05 17:21] VITALS: BP 144/81; PULSE 76; RESP 18; TEMP 99.2
== END 2020-08-05 17:50 | disposition home or self-care (01) ==
LOC: EC 14:39
DX: G43.909 Migraine, unspecified, not intractable, without status migrainosus (principal); R50.9 Fever, unspecified; G40.909 Epilepsy, unspecified, not intractable, without status epilepticus; F41.9 Anxiety disorder, unspecified; F32.9 Major depressive disorder, single episode, unspecified; F17.200 Nicotine dependence, unspecified, uncomplicated; Z79.899 Other long term (current) drug therapy; Z88.8 Allergy status to other drugs, medicaments and biological substances
CPT/HCPCS: 99283; 96372 ×2; J3030

== ENCOUNTER 2020-08-17 17:13 | Emergency (ER) | payer OTHER ==
[2020-08-17 17:24] VITALS: TEMP 99.7
[2020-08-17] MEDS ORDERED: ONDANSETRON 4 MG/2 ML VIAL IVP STA (17:38)
[2020-08-17] MEDS ORDERED: KETOROLAC 15 MG/ML 1 ML VIAL IVP STA (17:38)
[2020-08-17] MEDS ORDERED: lisinopriL 10 MG TAB PO STA (17:38)
[2020-08-17] MEDS ORDERED: HYDROmorphone 0.5 MG/0.5 ML SYRINGE IVP STA (17:38)
[2020-08-17] MEDS ORDERED: diphenhydrAMINE 50 MG/ML 1 ML VIAL IVP STA (17:39)
[2020-08-17] MEDS ORDERED: HYDROmorphone 1 MG/ML 1 ML SYRINGE IVP STA ×2 (19:18→20:35)
[2020-08-17] MEDS ORDERED: SUMAtriptan succinate 6 MG/0.5 ML VIAL SQ STA ×2 (19:19→20:34)
--- NOTE | 2020-08-17 19:36 | ED ---
Headache HPI - General Chief Complaint: Headache Stated Complaint: Migrane Time Seen by Provider: 08/17/20 17:26 Mode of arrival: ambulatory Limitations: no limitations - History of Present Illness Initial Comments: 39-year-old female presents today for chief complaint of headache. hx of seizures, chronic migraines, HTN. Patient states that she has chronic headache she states that they occur very frequently she states usually takes Imitrex for them but is out of her prescription. Patient states she has had this headache for the past 4 days she states it began gradually. She states she is cannot pinpoint the beginning she states it did not come on suddenly she denies this being the worst headache of her life she states that it is just persistent and thus was presented to the ER as she is out of Imitrex. Patient denies any visual changes she admits to photophobia and nausea which she states is very typical of her headaches she denies any changes in characteristics that are concerning. She states she's had previous MRIs with no history of known aneurysm. Patient states she has been told she has pseudotumor cerebri. Patient denies any blurred vision neck pain she states that she has fevers on and off as she has Lyme disease, denies acute changes. Patient denies seizure activity. patient states she just wants treatment with imitrex. Patietn denies chest pain, sob, or additional complaints. appears well on arrival. wlaked back to exam room # [id number] - Related Data Home Medications Medication Instructions Recorded Confirmed Butalb/APAP/Caff 50-325-40Mg 1 tab PO DAILY PRN 08/27/16 08/17/20 [Fioricet 50-325-40] Cariprazine HCl [Vraylar] 3 mg PO DAILY 08/17/20 08/17/20 Diphenoxylate HCl/Atropine 2 tab PO TID PRN 08/17/20 08/17/20 [Lomotil 2.5-0.025 mg Tablet] Doxepin HCl [SINEquan] 50 mg PO HS 08/17/20 08/17/20 FLUoxetine HCL 20 mg PO DAILY 08/17/20 08/17/20 Gabapentin 300 mg PO TID 08/17/20 08/17/20 Lisinopril [Zestril] 10 mg PO DAILY 08/17/20 08/17/20 Methocarbamol [Robaxin-750] 750 mg PO TID PRN 08/17/20 08/17/20 Pantoprazole [Protonix] 40 mg PO DAILY 08/17/20 08/17/20 lamoTRIgine [LaMICtal] 400 mg PO DAILY 08/17/20 08/17/20 Allergies Allergy/AdvReac Type Severity Reaction Status Date / Time cortisone AdvReac causes Verified 08/17/20 21:13 increased pain divalproex sodium AdvReac Vomiting Verified 08/17/20 21:13 [From Depakote] Review of Systems ROS Statement: Those systems with pertinent positive or pertinent negative responses have been documented in the HPI. ROS Other: All systems not noted in ROS Statement are negative. Past Medical History Past Medical History: Hypertension, Neurologic Disorder, Seizure Disorder Additional Past Medical History / Comment(s): migraines,. h/o lymes disease. h/o pseudotumor cerebri History of Any Multi-Drug Resistant Organisms: MRSA Date of last positivie culture/infection: 2001 MDRO Source:: head Past Surgical History: Section, Orthopedic Surgery Additional Past Surgical History / Comment(s): right foot, right shoulder, lumbar shunt Past Anesthesia/Blood Transfusion Reactions: Motion Sickness Past Psychological History: Anxiety, Bipolar Smoking Status: Current every day smoker Past Alcohol Use History: None Reported Past Drug Use History: Marijuana - Past Family History Mother Family Medical History: No Reported History General Exam - General Exam Comments Initial Comments: General: The patient is awake and alert, in no distress, and does not appear acutely ill. Eye: +3 mm pupils are equal, round and reactive to light, extra-ocular movements are intact. No nystagmus. There is normal conjunctiva bilaterally. No signs of icterus. Ears, nose, mouth and throat: There are moist mucous membranes and no oral lesions. Neck: The neck is supple, there is no tenderness or JVD. No nuchal rigidity Cardiovascular: There is a regular rate and rhythm. No murmur, rub or gallop is appreciated. Respiratory: Lungs are clear to auscultation, respirations are non-labored, breath sounds are equal. No wheezes, stridor, rales, or rhonchi. Gastrointestinal: Soft, non-distended, non-tender abdomen without masses or organomegaly noted. There is no rebound or guarding present. Musculoskeletal: Normal ROM, no tenderness. Strength 5/5 of the UE and LE b/l. Sensation intact of the UE and LE b/l. Radial and DP pulses equal bilaterally 2+. No pronator drift. No gait ataxia, Finger to nose smooth and coordinated. Neurological: A&O x 3. CN II-XII intact, There are no obvious motor or sensory deficits. Coordination appears grossly intact. Speech is normal. Skin: Skin is warm and dry and no rashes or lesions are noted. Psychiatric: Cooperative, appropriate mood & affect, normal judgment. Limitations: no limitations Course Vital Signs 08/17/20 08/17/20 08/17/20 17:21 19:19 19:50 Temperature 99.7 F H Pulse Rate 91 82 85 Respiratory 18 18 18 Rate Blood Pressure 170/119 158/111 156/107 O2 Sat by Pulse 98 97 96 Oximetry 08/17/20 08/17/20 08/17/20 20:31 20:55 21:19 Temperature Pulse Rate 80 80 Respiratory 19 18 Rate Blood Pressure 165/120 163/111 123/81 O2 Sat by Pulse 98 98 Oximetry 08/17/20 21:30 Temperature 99.7 F H Pulse Rate 80 Respiratory 18 Rate Blood Pressure 123/81 O2 Sat by Pulse 98 Oximetry Medical Decision Making - Medical Decision Making 31-year-old history of migraines presented for headache. States is very typical of her migraines denies any concerning features. Does not want imaging studies. Denies known history of aneurysm. Symptoms decreased after second dose of imitrex, patient personally requested discharge stating she just wants to go home and is starting to feel beter. no focal deficits. BP improved. Patient case discussed with Dr. Villa who is agreeable to care plan. Disposition Clinical Impression: Headache Disposition: HOME SELF-CARE Condition: Good Additional Instructions: Please use medication as discussed. Please follow-up with family doctor in the next 2 days. Please return to emergency room if the symptoms increase or worsen or for any other concerns. Is patient prescribed a controlled substance at d/c from ED?: No Referrals: Jonathan Kulkarni MD [Primary Care Provider] - 1-2 days Time of Disposition: 21:26
[2020-08-17 20:33] VITALS: PULSE 80
[2020-08-17] MEDS ORDERED: hydrALAZINE HCL 20 MG/ML 1 ML VIAL IVP STA (20:35)
[2020-08-17 21:20] VITALS: BP 123/81; RESP 18
== END 2020-08-17 21:31 | disposition home or self-care (01) ==
LOC: EC 17:13
DX: G43.909 Migraine, unspecified, not intractable, without status migrainosus (principal); I10 Essential (primary) hypertension; F31.9 Bipolar disorder, unspecified; F41.9 Anxiety disorder, unspecified; G40.909 Epilepsy, unspecified, not intractable, without status epilepticus; F17.200 Nicotine dependence, unspecified, uncomplicated; Z79.899 Other long term (current) drug therapy; Z88.8 Allergy status to other drugs, medicaments and biological substances
CPT/HCPCS: 99284; 96374; 96375 ×4; 96376; 96372 ×2; J3030; J0360; J1200; J2405; J1170 ×2; J1885

== ENCOUNTER → 2020-11-23 | Outpatient (CLI) | payer OTHER ==
--- NOTE | 2020-11-23 19:04 | XR ---
EXAMINATION TYPE: XR KUB DATE OF EXAM: 11/23/2020 Comparison: None Clinical History: 39-year-old female R10.9, N20.0 Findings: Nonobstructive bowel gas pattern. Scattered colonic air is present. No significant stool burden. 6 mm calcification projecting at the lower pole of the right kidney. Pelvic phleboliths. There is a 4 ant igravity ball valve catheter in the right side of the abdomen extending to the lumbar spinal canal. IMPRESSION: Right-sided lumbar shunt catheter. No evidence for bowel obstruction. No significant stool burden.
== END | disposition home or self-care (01) ==
LOC: RADXRMAIN 11:52
PROVIDERS: ATTEND Family Medicine
DX: N20.0 Calculus of kidney (principal); R10.9 Unspecified abdominal pain
CPT/HCPCS: 74018

== ENCOUNTER 2021-01-24 13:30 | Emergency (ER) | payer OTHER ==
[2021-01-24] MEDS ORDERED: SUMAtriptan succinate 6 MG/0.5 ML VIAL SQ STA ×2 (14:36→16:00)
[2021-01-24] MEDS ORDERED: SODIUM CHLORIDE 0.9% 1,000 ML IV SCH (14:45)
[2021-01-24 15:13] LABS: Appearance,Urine Clear (Clear); Bilirubin,Urine Negative (Negative); Blood,Urine Moderate (Negative); Color,Urine Light Yellow; Glucose,Urine (UA) Negative (Negative); Ketones,Urine Negative (Negative); Leukocyte Esterase,Urine Negative (Negative); Mucus,Urine Rare /hpf; Nitrite,Urine Negative (Negative); Protein,Urine Trace (Negative); RBC,Urine 15 /hpf (0-5); Squamous Epithelial Cell,Urine <1 /hpf (0-4); Urobilinogen,Urine <2.0 mg/dL (<2.0); WBC,Urine 1 /hpf (0-5)
[2021-01-24 15:26] LABS: Albumin 4.9 g/dL (3.5-5.0); Calcium 9.6 mg/dL (8.4-10.2); Total Bilirubin 0.6 mg/dL (0.2-1.3)
[2021-01-24 15:29] LABS: Potassium 4.9 mmol/L (3.5-5.1)
[2021-01-24 15:38] LABS: Anisocytosis Slight; Basophils % (A) 0 %; Eosinophils % (A) 1 %; HCT 38.3 % (34.0-46.0); HGB 11.9 gm/dL (11.4-16.0); Lymphocytes # (A) 2.2 k/uL (1.0-4.8); Lymphocytes % (A) 24 %; MCH 31.9 pg (25.0-35.0); MCHC 31.1 g/dL (31.0-37.0); MCV 102.4 fL (80.0-100.0); Macrocytosis Moderate; Mean Platelet Volume 7.7; Monocytes # (A) 0.4 k/uL (0-1.0); Monocytes % (A) 4 %; Neutrophils # (A) 6.1 k/uL (1.3-7.7); Neutrophils % (A) 69 %; Platelet Count 336 k/uL (150-450); RBC 3.75 m/uL (3.80-5.40); RDW 16.4 % (11.5-15.5); WBC 8.9 k/uL (3.8-10.6)
--- NOTE | 2021-01-24 16:40 | ED ---
Headache HPI - General Chief Complaint: Headache Stated Complaint: Headache Mode of arrival: ambulatory Limitations: no limitations - History of Present Illness Initial Comments: Patient is a 40-year-old female with past medical history of migraines, pseudotumor with shunt placement presents emergency department with reported headache 1 day. She reports to photophobia. States that she suffers freque ntly from migraines. States that she had the shunt placed one year ago and has not had any improvement in her headaches with the shunt. States she still has to come to the emergency department 3-4 times per year for her headaches. States that it started yesterday. She has been using her Fioricet at home without improvement. She denies any fevers or neck stiffness. No recent head trauma. States that her headaches are not any worse than what they normally are. Denies any weakness on one side of her body or the other. No concern for . No other alleviating, precipitating or modifying factors - Related Data Home Medications Medication Instructions Recorded Confirmed Butalb/APAP/Caff 50-325-40Mg 1 tab PO Q6H PRN 08/27/16 01/24/21 [Fioricet 50-325-40] Cariprazine HCl [Vraylar] 3 mg PO DAILY 08/17/20 01/24/21 Diphenoxylate HCl/Atropine 2 tab PO TID PRN 08/17/20 01/24/21 [Lomotil 2.5-0.025 mg Tablet] Lisinopril [Zestril] 10 mg PO DAILY 08/17/20 01/24/21 Methocarbamol [Robaxin-750] 750 mg PO TID PRN 08/17/20 01/24/21 Pantoprazole [Protonix] 40 mg PO DAILY 08/17/20 01/24/21 Gabapentin 600 mg PO TID 01/24/21 01/24/21 Ibuprofen [Motrin Ib] 800 mg PO Q8H PRN 01/24/21 01/24/21 Zolpidem Tartrate [Ambien] 5 mg PO HS PRN 01/24/21 01/24/21 lamoTRIgine [LaMICtal] 200 mg PO BID 01/24/21 01/24/21 Allergies Allergy/AdvReac Type Severity Reaction Status Date / Time cortisone AdvReac causes Verified 01/24/21 15:57 increased pain divalproex sodium AdvReac Vomiting Verified 01/24/21 15:57 [From Depakote] Review of Systems ROS Statement: Those systems with pertinent positive or pertinent negative responses have been documented in the HPI. ROS Other: All systems not noted in ROS Statement are negative. Past Medical History Past Medical History: Hypertension, Neurologic Disorder, Seizure Disorder Additional Past Medical History / Comment(s): migraines,. h/o lymes disease. h/o pseudotumor cerebri History of Any Multi-Drug Resistant Organisms: MRSA Date of last positivie culture/infection: 2001 MDRO Source:: head Past Surgical History: Section, Orthopedic Surgery Additional Past Surgical History / Comment(s): right foot, right shoulder, lumbar shunt Past Anesthesia/Blood Transfusion Reactions: Motion Sickness Past Psychological History: Anxiety, Bipolar Smoking Status: Current every day smoker Past Alcohol Use History: None Reported Past Drug Use History: Marijuana - Past Family History Mother Family Medical History: No Reported History General Exam Limitations: no limitations Course Vital Signs 01/24/21 01/24/21 13:31 19:02 Temperature 98.7 F 98.4 F Pulse Rate 103 H 80 Respiratory 20 16 Rate Blood Pressure 156/89 158/78 O2 Sat by Pulse 99 98 Oximetry Medical Decision Making - Medical Decision Making Upon arrival patient was [place] into [place] [id number]. A thorough history and physical exam is performed. I did discuss treatment options with the patient. She is requesting Imitrex shots as this is what normally cures her headaches. IV was established patient was given 500 mL of saline. Laboratory studies were drawn. Patient is reevaluated and does request a second Imitrex shot as she states that normally takes to home for her to feel better. Patient is given a second injection reevaluated. Reports improvement in her migraines at this time and is wishing to go home. Instructed her that she needs to follow-up with her neurologist. Return to the emergency room for any new or worsening symptoms. Patient was discharged home in stable condition - Lab Data Result diagrams: 01/24/21 15:04 01/24/21 15:04 Lab Results 01/24/21 01/24/21 01/24/21 Range/Units 15:04 15:04 15:04 WBC 8.9 (3.8-10.6) k/uL RBC 3.75 L (3.80-5.40) m/uL Hgb 11.9 (11.4-16.0) gm/dL Hct 38.3 (34.0-46.0) % MCV 102.4 H (80.0-100.0) fL MCH 31.9 (25.0-35.0) pg MCHC 31.1 (31.0-37.0) g/dL RDW 16.4 H (11.5-15.5) % Plt Count 336 (150-450) k/uL MPV 7.7 Neutrophils % 69 % Lymphocytes % 24 % Monocytes % 4 % Eosinophils % 1 % Basophils % 0 % Neutrophils # 6.1 (1.3-7.7) k/uL Lymphocytes # 2.2 (1.0-4.8) k/uL Monocytes # 0.4 (0-1.0) k/uL Eosinophils # 0.0 (0-0.7) k/uL Basophils # 0.0 (0-0.2) k/uL Anisocytosis Slight Macrocytosis Moderate Sodium (137-145) mmol/L Potassium (3.5-5.1) mmol/L Chloride (98-107) mmol/L Carbon Dioxide (22-30) mmol/L Anion Gap mmol/L BUN (7-17) mg/dL Creatinine (0.52-1.04) mg/dL Est GFR (CKD-EPI)AfAm (>60 ml/min/1.73 sqM) Est GFR (CKD-EPI)NonAf (>60 ml/min/1.73 sqM) Glucose (74-99) mg/dL Calcium (8.4-10.2) mg/dL Total Bilirubin (0.2-1.3) mg/dL AST (14-36) U/L ALT (4-34) U/L Alkaline Phosphatase (38-126) U/L Total Protein (6.3-8.2) g/dL Albumin (3.5-5.0) g/dL Urine Color Light Yellow Urine Appearance Clear (Clear) Urine pH 6.0 (5.0-8.0) Ur Specific Lloyd 1.030 (1.001-1.035) Urine Protein Trace H (Negative) Urine Glucose (UA) Negative (Negative) Urine Ketones Negative (Negative) Urine Blood Moderate H (Negative) Urine Nitrite Negative (Negative) Urine Bilirubin Negative (Negative) Urine Urobilinogen <2.0 (<2.0) mg/dL Ur Leukocyte Esterase Negative (Negative) Urine RBC 15 H (0-5) /hpf Urine WBC 1 (0-5) /hpf Ur Squamous Epith Cells <1 (0-4) /hpf Urine Mucus Rare H (None) /hpf Urine HCG, Qual Not Detected (Not Detectd) 01/24/21 Range/Units 15:04 WBC (3.8-10.6) k/uL RBC (3.80-5.40) m/uL Hgb (11.4-16.0) gm/dL Hct (34.0-46.0) % MCV (80.0-100.0) fL MCH (25.0-35.0) pg MCHC (31.0-37.0) g/dL RDW (11.5-15.5) % Plt Count (150-450) k/uL MPV Neutrophils % % Lymphocytes % % Monocytes % % Eosinophils % % Basophils % % Neutrophils # (1.3-7.7) k/uL Lymphocytes # (1.0-4.8) k/uL Monocytes # (0-1.0) k/uL Eosinophils # (0-0.7) k/uL Basophils # (0-0.2) k/uL Anisocytosis Macrocytosis Sodium 136 L (137-145) mmol/L Potassium 4.9 (3.5-5.1) mmol/L Chloride 108 H (98-107) mmol/L Carbon Dioxide 16 L (22-30) mmol/L Anion Gap 12 mmol/L BUN 19 H (7-17) mg/dL Creatinine 0.97 (0.52-1.04) mg/dL Est GFR (CKD-EPI)AfAm 86 (>60 ml/min/1.73 sqM) Est GFR (CKD-EPI)NonAf 74 (>60 ml/min/1.73 sqM) Glucose 104 H (74-99) mg/dL Calcium 9.6 (8.4-10.2) mg/dL Total Bilirubin 0.6 (0.2-1.3) mg/dL AST 20 (14-36) U/L ALT 16 (4-34) U/L Alkaline Phosphatase 86 (38-126) U/L Total Protein 8.0 (6.3-8.2) g/dL Albumin 4.9 (3.5-5.0) g/dL Urine Color Urine Appearance (Clear) Urine pH (5.0-8.0) Ur Specific Lloyd (1.001-1.035) Urine Protein (Negative) Urine Glucose (UA) (Negative) Urine Ketones (Negative) Urine Blood (Negative) Urine Nitrite (Negative) Urine Bilirubin (Negative) Urine Urobilinogen (<2.0) mg/dL Ur Leukocyte Esterase (Negative) Urine RBC (0-5) /hpf Urine WBC (0-5) /hpf Ur Squamous Epith Cells (0-4) /hpf Urine Mucus (None) /hpf Urine HCG, Qual (Not Detectd) Disposition Clinical Impression: Migraine Disposition: HOME SELF-CARE Condition: Stable Instructions (If sedation given, give patient instructions): Acute Headache (ED) Additional Instructions: Please follow-up with your primary care doctor in 2-4 days. Return to the emergency room for any new or worsening symptoms Is patient prescribed a controlled substance at d/c from ED?: No Referrals: Jonathan Kulkarni MD [Primary Care Provider] - 1-2 days Time of Disposition: 18:02
[2021-01-24 19:03] VITALS: BP 158/78; PULSE 80; RESP 16; TEMP 98.4
== END 2021-01-24 19:02 | disposition home or self-care (01) ==
LOC: EC 13:30
DX: G43.909 Migraine, unspecified, not intractable, without status migrainosus (principal); I10 Essential (primary) hypertension; F41.9 Anxiety disorder, unspecified; F17.200 Nicotine dependence, unspecified, uncomplicated
CPT/HCPCS: 36415; 80053; 85025; 81001; 81025; 99284; 96360; 96361; J3030

== ENCOUNTER 2021-02-03 17:26 | Emergency (ER) | payer OTHER ==
[2021-02-03 17:32] VITALS: RESP 18
--- NOTE | 2021-02-03 18:29 | ED ---
Headache HPI - General Chief Complaint: Headache Stated Complaint: headache Time Seen by Provider: 02/03/21 18:20 Source: patient, RN notes reviewed Mode of arrival: ambulatory Limitations: no limitations - History of Present Illness Initial Comments: Patient is a 40-year-old female that presents to the emergency department complaining of a migraine for 3 days. She notes that she does have a history of pseudotumor cerebri and does have a shunt. She notes that she is in approximately a 9 out of 10 pain. She notes that she has tried her at home med ications with no relief. She states that she has to go the emergency room several times a year due to breakthrough migraines. She was in no apparent distress or pain while sitting up in bed during exam and interview. She did note she did have some photophobia and phonophobia. She denied any chest pain shortness of breath vomiting diarrhea constipation fever fatigue chills. - Related Data Home Medications Medication Instructions Recorded Confirmed Butalb/APAP/Caff 50-325-40Mg 1 tab PO Q6H PRN 08/27/16 01/24/21 [Fioricet 50-325-40] Cariprazine HCl [Vraylar] 3 mg PO DAILY 08/17/20 01/24/21 Diphenoxylate HCl/Atropine 2 tab PO TID PRN 08/17/20 01/24/21 [Lomotil 2.5-0.025 mg Tablet] Lisinopril [Zestril] 10 mg PO DAILY 08/17/20 01/24/21 Methocarbamol [Robaxin-750] 750 mg PO TID PRN 08/17/20 01/24/21 Pantoprazole [Protonix] 40 mg PO DAILY 08/17/20 01/24/21 Gabapentin 600 mg PO TID 01/24/21 01/24/21 Ibuprofen [Motrin Ib] 800 mg PO Q8H PRN 01/24/21 01/24/21 Zolpidem Tartrate [Ambien] 5 mg PO HS PRN 01/24/21 01/24/21 lamoTRIgine [LaMICtal] 200 mg PO BID 01/24/21 01/24/21 Allergies Allergy/AdvReac Type Severity Reaction Status Date / Time cortisone AdvReac causes Verified 02/03/21 17:31 increased pain divalproex sodium AdvReac Vomiting Verified 02/03/21 17:31 [From Depakote] Review of Systems ROS Statement: Those systems with pertinent positive or pertinent negative responses have been documented in the HPI. ROS Other: All systems not noted in ROS Statement are negative. Past Medical History Past Medical History: Hypertension, Neurologic Disorder, Seizure Disorder Additional Past Medical History / Comment(s): migraines,. h/o lymes disease. h/o pseudotumor cerebri History of Any Multi-Drug Resistant Organisms: MRSA Date of last positivie culture/infection: 2001 MDRO Source:: head Past Surgical History: Section, Orthopedic Surgery Additional Past Surgical History / Comment(s): right foot, right shoulder, lumbar shunt Past Anesthesia/Blood Transfusion Reactions: Motion Sickness Past Psychological History: Anxiety, Bipolar Smoking Status: Current every day smoker Past Alcohol Use History: None Reported Past Drug Use History: Marijuana - Past Family History Mother Family Medical History: No Reported History General Exam Limitations: no limitations General appearance: alert, in no apparent distress, obese Head exam: Present: atraumatic, normocephalic, normal inspection Eye exam: Present: normal appearance, PERRL, EOMI. Absent: scleral icterus, conjunctival injection, periorbital swelling Neck exam: Present: normal inspection. Absent: tenderness, meningismus, lymphadenopathy Respiratory exam: Present: normal lung sounds bilaterally. Absent: respiratory distress, wheezes, rales, rhonchi, stridor Cardiovascular Exam: Present: regular rate, normal rhythm, normal heart sounds. Absent: systolic murmur, diastolic murmur, rubs, gallop, clicks GI/Abdominal exam: Present: soft, normal bowel sounds. Absent: distended, tenderness, guarding, rebound, rigid Extremities exam: Present: normal inspection, full ROM, normal capillary refill. Absent: tenderness, pedal edema, joint swelling, calf tenderness Neurological exam: Present: alert, oriented X3, CN II-XII intact Expanded Patient oriented to: Present: person, place, time Speech: Present: fluid speech Cranial nerves: EOM's Intact: Normal Motor strength exam: RUE: 5, LUE: 5, RLE: 5, LLE: 5 Eye Response: (4) open spontaneously Motor Response: (6) obeys commands Verbal Response: (5) oriented Psychiatric exam: Present: normal affect, normal mood Skin exam: Present: warm, dry, intact, normal color. Absent: rash Course Vital Signs 02/03/21 17:29 Temperature 98.6 F Pulse Rate 90 Respiratory 18 Rate Blood Pressure 131/94 O2 Sat by Pulse 97 Oximetry Medical Decision Making - Medical Decision Making 40-year-old female complaining of a migraine for 3 days. Patient states that Imitrex injections help prevent migraines. 6 mg ordered. CBC, BMP, 500 mL of normal saline ordered. Labs unremarkable compared to previous. 6 mg of Imitrex ordered, patient states that 2 doses usually gets her migraines 4. Case discussed with Dr. Sunshine, patient can discharge home with follow-up to her neurologist for medication management. - Lab Data Result diagrams: 02/03/21 18:57 02/03/21 18:57 Lab Results 02/03/21 02/03/21 Range/Units 18:57 18:57 WBC 8.0 (3.8-10.6) k/uL RBC 3.24 L (3.80-5.40) m/uL Hgb 10.9 L (11.4-16.0) gm/dL Hct 32.8 L (34.0-46.0) % MCV 101.1 H (80.0-100.0) fL MCH 33.5 (25.0-35.0) pg MCHC 33.1 (31.0-37.0) g/dL RDW 15.8 H (11.5-15.5) % Plt Count 339 (150-450) k/uL MPV 7.3 Neutrophils % 71 % Lymphocytes % 22 % Monocytes % 4 % Eosinophils % 1 % Basophils % 0 % Neutrophils # 5.7 (1.3-7.7) k/uL Lymphocytes # 1.8 (1.0-4.8) k/uL Monocytes # 0.3 (0-1.0) k/uL Eosinophils # 0.1 (0-0.7) k/uL Basophils # 0.0 (0-0.2) k/uL Macrocytosis Slight Sodium 136 L (137-145) mmol/L Potassium 4.3 (3.5-5.1) mmol/L Chloride 104 (98-107) mmol/L Carbon Dioxide 22 (22-30) mmol/L Anion Gap 10 mmol/L BUN 19 H (7-17) mg/dL Creatinine 1.01 (0.52-1.04) mg/dL Est GFR (CKD-EPI)AfAm 81 (>60 ml/min/1.73 sqM) Est GFR (CKD-EPI)NonAf 70 (>60 ml/min/1.73 sqM) Glucose 98 (74-99) mg/dL Calcium 9.5 (8.4-10.2) mg/dL Disposition Clinical Impression: Migraine Disposition: HOME SELF-CARE Condition: Stable Instructions (If sedation given, give patient instructions): Acute Headache (ED) Additional Instructions: Please return to the Emergency Department if symptoms worsen or any other concerns. Please follow-up with your neurologist to manage medications and change if needed. Follow-up with primary care in 3-5 days. Continue take at home medications as prescribed. Is patient prescribed a controlled substance at d/c from ED?: No Referrals: Jonathan Kulkarni MD [Primary Care Provider] - 1-2 days Time of Disposition: 19:59
[2021-02-03] MEDS: SUMAtriptan succinate 6 MG/0.5 ML VIAL SQ STA ×2 (18:48→20:03)
[2021-02-03] MEDS: SODIUM CHLORIDE 0.9% 500 ML 500 ML IV STA (18:48)
[2021-02-03] MEDS: ONDANSETRON 4 MG/2 ML VIAL IVP STA (18:49)
[2021-02-03 19:07] LABS: Basophils % (A) 0 %; Eosinophils # (A) 0.1 k/uL (0-0.7); Eosinophils % (A) 1 %; HCT 32.8 % (34.0-46.0); HGB 10.9 gm/dL (11.4-16.0); Lymphocytes # (A) 1.8 k/uL (1.0-4.8); Lymphocytes % (A) 22 %; MCH 33.5 pg (25.0-35.0); MCHC 33.1 g/dL (31.0-37.0); MCV 101.1 fL (80.0-100.0); Macrocytosis Slight; Mean Platelet Volume 7.3; Monocytes # (A) 0.3 k/uL (0-1.0); Monocytes % (A) 4 %; Neutrophils # (A) 5.7 k/uL (1.3-7.7); Neutrophils % (A) 71 %; Platelet Count 339 k/uL (150-450); RBC 3.24 m/uL (3.80-5.40); RDW 15.8 % (11.5-15.5)
[2021-02-03 19:21] LABS: Calcium 9.5 mg/dL (8.4-10.2); Potassium 4.3 mmol/L (3.5-5.1)
[2021-02-03 20:13] VITALS: BP 147/90; PULSE 89; TEMP 98.4
== END 2021-02-03 20:13 | disposition home or self-care (01) ==
LOC: EC 17:26
DX: G43.909 Migraine, unspecified, not intractable, without status migrainosus (principal); I10 Essential (primary) hypertension; G40.909 Epilepsy, unspecified, not intractable, without status epilepticus; F41.9 Anxiety disorder, unspecified; F31.9 Bipolar disorder, unspecified; F17.200 Nicotine dependence, unspecified, uncomplicated; F12.90 Cannabis use, unspecified, uncomplicated
CPT/HCPCS: 36415; 80048; 85025; 99284; 96374; 96361; 96372 ×2; J3030; J2405

== ENCOUNTER 2021-02-04 15:22 | Emergency (ER) | payer OTHER ==
[2021-02-04 16:06] VITALS: TEMP 98.3
[2021-02-04] MEDS ORDERED: ONDANSETRON 4 MG/2 ML VIAL IVP STA (18:09)
[2021-02-04] MEDS ORDERED: SODIUM CHLORIDE 0.9% 1,000 ML IV STA (18:09)
[2021-02-04] MEDS ORDERED: diphenhydrAMINE 50 MG/ML 1 ML VIAL IVP STA (18:09)
[2021-02-04] MEDS ORDERED: HYDROmorphone 1 MG/ML 1 ML SYRINGE IVP STA ×2 (18:09→19:08)
--- NOTE | 2021-02-04 18:12 | ED ---
Headache HPI - General Chief Complaint: Headache Stated Complaint: revisit - headache Source: patient, RN notes reviewed Mode of arrival: ambulatory Limitations: no limitations - History of Present Illness Initial Comments: Patient is a 40-year-old female that presents to the emergency department for chronic migraine. She was recently here late last night for the same issue she got 12 mg Imitrex and some fluids. She noted that the Imitrex usually helps but didn't this time. She noted that the headache is worse today than it was yesterday. She notes that the pain is present on the 10 out of 10 unrelieved with any home medications. She stated that she still having photophobia and phonophobia. She does not remember on her next follow-up with her neurologist is but was recommended that she try to call and get in sometime this week. She was in mild to moderate distress while laying in bed with her eyes covered with a rag. She denied any other issues or complaints. She denied any chest pain shortness of breath nausea vomiting diarrhea constipation fever fatigue chills. Patient does have a history of pseudotumor cerebri with shunt placement. - Related Data Home Medications Medication Instructions Recorded Confirmed Butalb/APAP/Caff 50-325-40Mg 1 tab PO Q6H PRN 08/27/16 01/24/21 [Fioricet 50-325-40] Cariprazine HCl [Vraylar] 3 mg PO DAILY 08/17/20 01/24/21 Diphenoxylate HCl/Atropine 2 tab PO TID PRN 08/17/20 01/24/21 [Lomotil 2.5-0.025 mg Tablet] Lisinopril [Zestril] 10 mg PO DAILY 08/17/20 01/24/21 Methocarbamol [Robaxin-750] 750 mg PO TID PRN 08/17/20 01/24/21 Pantoprazole [Protonix] 40 mg PO DAILY 08/17/20 01/24/21 Gabapentin 600 mg PO TID 01/24/21 01/24/21 Ibuprofen [Motrin Ib] 800 mg PO Q8H PRN 01/24/21 01/24/21 Zolpidem Tartrate [Ambien] 5 mg PO HS PRN 01/24/21 01/24/21 lamoTRIgine [LaMICtal] 200 mg PO BID 01/24/21 01/24/21 Allergies Allergy/AdvReac Type Severity Reaction Status Date / Time cortisone AdvReac causes Verified 02/04/21 16:06 increased pain divalproex sodium AdvReac Vomiting Verified 02/04/21 16:06 [From Depakote] Review of Systems ROS Statement: Those systems with pertinent positive or pertinent negative responses have been documented in the HPI. ROS Other: All systems not noted in ROS Statement are negative. Past Medical History Past Medical History: Hypertension, Neurologic Disorder, Seizure Disorder Additional Past Medical History / Comment(s): migraines,. h/o lymes disease. h/o pseudotumor cerebri History of Any Multi-Drug Resistant Organisms: MRSA Date of last positivie culture/infection: 2001 MDRO Source:: head Past Surgical History: Section, Orthopedic Surgery Additional Past Surgical History / Comment(s): right foot, right shoulder, lumbar shunt Past Anesthesia/Blood Transfusion Reactions: Motion Sickness Past Psychological History: Anxiety, Bipolar Smoking Status: Current every day smoker Past Alcohol Use History: None Reported Past Drug Use History: Marijuana - Past Family History Mother Family Medical History: No Reported History General Exam Limitations: no limitations General appearance: alert, in distress (Mild to moderate), obese Head exam: Present: atraumatic, normocephalic, normal inspection Eye exam: Present: normal appearance, PERRL, EOMI. Absent: scleral icterus, conjunctival injection, periorbital swelling Neck exam: Present: normal inspection. Absent: tenderness, meningismus, lymphadenopathy Respiratory exam: Present: normal lung sounds bilaterally. Absent: respiratory distress, wheezes, rales, rhonchi, stridor Cardiovascular Exam: Present: regular rate, normal rhythm, normal heart sounds. Absent: systolic murmur, diastolic murmur, rubs, gallop, clicks GI/Abdominal exam: Present: soft, normal bowel sounds. Absent: distended, tenderness, guarding, rebound, rigid Extremities exam: Present: normal inspection, full ROM, normal capillary refill. Absent: tenderness, pedal edema, joint swelling, calf tenderness Neurological exam: Present: alert, oriented X3, CN II-XII intact Psychiatric exam: Present: normal affect, normal mood Skin exam: Present: warm, dry, intact, normal color. Absent: rash Course Vital Signs 02/04/21 02/04/21 16:03 19:04 Temperature 98.3 F Pulse Rate 91 87 Respiratory 20 16 Rate Blood Pressure 133/93 159/97 O2 Sat by Pulse 96 95 Oximetry Medical Decision Making - Medical Decision Making 40-year-old female with chronic migraines. 1 mg of Dilaudid, 4 mg of Zofran, 50 mg of Benadryl and 1 L of normal saline ordered. Imitrex was withheld due to patient returning within 24 hours after receiving 12 mg of Imitrex. Upon reinspecting patient she is still in the amount of pain, 1 mg of Dilaudid ordered. She was informed that she needs to follow up with her primary care and her neurologist as soon as possible for further in the next one to 3 days. Case discussed with Dr. Brock, patient can discharge home. Disposition Clinical Impression: Migraine Disposition: HOME SELF-CARE Condition: Stable Additional Instructions: Please return to the Emergency Department if symptoms worsen or any other sigrid rns. Follow-up with neurologist in the next one to 3 days, call neurology office for post emergency room visit and medication management. And to take at home medications as prescribed. Is patient prescribed a controlled substance at d/c from ED?: No Referrals: Jonathan Kulkarni MD [Primary Care Provider] - 1-2 days Time of Disposition: 19:10
[2021-02-04 19:05] VITALS: BP 159/97; PULSE 87; RESP 16
== END 2021-02-04 19:38 | disposition home or self-care (01) ==
LOC: EC 15:22
DX: G40.909 Epilepsy, unspecified, not intractable, without status epilepticus (principal); F17.200 Nicotine dependence, unspecified, uncomplicated; I10 Essential (primary) hypertension; F41.9 Anxiety disorder, unspecified; F12.90 Cannabis use, unspecified, uncomplicated; Z79.1 Long term (current) use of non-steroidal anti-inflammatories (NSAID)
CPT/HCPCS: 99283; 96374; 96375; 96376; 96361; J1200; J2405; J1170; 99282

== ENCOUNTER 2021-05-05 15:22 | Emergency (ER) | payer OTHER ==
[2021-05-05 15:27] VITALS: BP 145/83; PULSE 89; RESP 16; TEMP 99
[2021-05-05] MEDS ORDERED: AMOXIC-POT CLAV 875-125MG 1 EACH TAB PO STA (15:37)
--- NOTE | 2021-05-05 15:40 | ED ---
ENT HPI - General Chief complaint: Dental/Oral Stated complaint: Oral pain Time Seen by Provider: 05/05/21 15:28 Source: patient Mode of arrival: ambulatory Limitations: no limitations - History of Present Illness Initial comments: 40-year-old female presents to the emergency department with a chief complaint abdominal pain. Patient reports 3 days ago she saw her dentist for an abscessed tooth and was started on amoxicillin. States there has been no changes in her pain or swelling on the left side of her face. Patient reports pain is worse with mastication and alleviated at rest. She denies any fevers or chills at home. States the pain is causing a migraine. For her but she denies any photosensitivity nausea or vomiting. - Related Data Home Medications Medication Instructions Recorded Confirmed Butalb/APAP/Caff 50-325-40Mg 1 tab PO Q6H PRN 08/27/16 01/24/21 [Fioricet 50-325-40] Cariprazine HCl [Vraylar] 3 mg PO DAILY 08/17/20 01/24/21 Diphenoxylate HCl/Atropine 2 tab PO TID PRN 08/17/20 01/24/21 [Lomotil 2.5-0.025 mg Tablet] Lisinopril [Zestril] 10 mg PO DAILY 08/17/20 01/24/21 Methocarbamol [Robaxin-750] 750 mg PO TID PRN 08/17/20 01/24/21 Pantoprazole [Protonix] 40 mg PO DAILY 08/17/20 01/24/21 Gabapentin 600 mg PO TID 01/24/21 01/24/21 Ibuprofen [Motrin Ib] 800 mg PO Q8H PRN 01/24/21 01/24/21 Zolpidem Tartrate [Ambien] 5 mg PO HS PRN 01/24/21 01/24/21 lamoTRIgine [LaMICtal] 200 mg PO BID 01/24/21 01/24/21 Previous Rx's Medication Instructions Recorded Amoxicillin/Potassium Clav 1 tab PO Q12HR #20 tab 05/05/21 [Augmentin 875-125 Tablet] Allergies Allergy/AdvReac Type Severity Reaction Status Date / Time cortisone AdvReac causes Verified 05/05/21 15:27 increased pain divalproex sodium AdvReac Vomiting Verified 05/05/21 15:27 [From Depakote] Review of Systems ROS Statement: Those systems with pertinent positive or pertinent negative responses have been documented in the HPI. ROS Other: All systems not noted in ROS Statement are negative. Past Medical History Past Medical History: Hypertension, Neurologic Disorder, Seizure Disorder Additional Past Medical History / Comment(s): migraines,. h/o lymes disease. h/o pseudotumor cerebri History of Any Multi-Drug Resistant Organisms: MRSA Date of last positivie culture/infection: 2001 MDRO Source:: head Past Surgical History: Section, Orthopedic Surgery Additional Past Surgical History / Comment(s): right foot, right shoulder, lumbar shunt Past Anesthesia/Blood Transfusion Reactions: Motion Sickness Past Psychological History: Anxiety, Bipolar Smoking Status: Former smoker Past Alcohol Use History: None Reported Past Drug Use History: Marijuana - Past Family History Mother Family Medical History: No Reported History General Exam Limitations: no limitations General appearance: alert, in no apparent distress Head exam: Present: atraumatic, normocephalic, normal inspection Eye exam: Present: normal appearance, PERRL, EOMI Pupils: Present: normal accommodation ENT exam: Present: normal exam, mucous membranes moist, TM's normal bilaterally, normal external ear exam. Absent: normal oropharynx (Poor dentition. Multiple dental caries. No signs of a periapical abscess) Neck exam: Present: normal inspection, full ROM. Absent: tenderness, lymphadenopathy Respiratory exam: Present: normal lung sounds bilaterally. Absent: respiratory distress, wheezes, rales, rhonchi, stridor Cardiovascular Exam: Present: regular rate, normal rhythm, normal heart sounds. Absent: systolic murmur Extremities exam: Present: normal inspection, full ROM, normal capillary refill. Absent: tenderness Back exam: Present: normal inspection, full ROM. Absent: tenderness, CVA tenderness (R), CVA tenderness (L) Neurological exam: Present: alert, oriented X3 Psychiatric exam: Present: normal affect, normal mood Skin exam: Present: warm, dry, intact, normal color Course Vital Signs 05/05/21 15:23 Temperature 99.0 F Pulse Rate 89 Respiratory 16 Rate Blood Pressure 145/83 O2 Sat by Pulse 97 Oximetry Medical Decision Making - Medical Decision Making 40-year-old female presents to the emergency department with a chief complaint of dental pain. On physical examination, no signs of periapical abscess. Mild left sided swelling. I will discontinue the amoxicillin and start her on Augmentin. I advised her to return to emergency department if symptoms worsen. Case discussed with physician Disposition Clinical Impression: Toothache Disposition: HOME SELF-CARE Condition: Stable Instructions (If sedation given, give patient instructions): Toothache (ED) Additional Instructions: Please return to the Emergency Department if symptoms worsen or any other concerns. Prescriptions: Amoxicillin/Potassium Clav [Augmentin 875-125 Tablet] 1 tab PO Q12HR #20 tab Is patient prescribed a controlled substance at d/c from ED?: No Referrals: Jonathan Kulkarni MD [Primary Care Provider] - 1-2 days Time of Disposition: 15:39
== END 2021-05-05 16:02 | disposition home or self-care (01) ==
LOC: EC 15:22
DX: K08.89 Other specified disorders of teeth and supporting structures (principal); R10.9 Unspecified abdominal pain; R22.0 Localized swelling, mass and lump, head; I10 Essential (primary) hypertension; F31.9 Bipolar disorder, unspecified; G43.909 Migraine, unspecified, not intractable, without status migrainosus; G40.909 Epilepsy, unspecified, not intractable, without status epilepticus; F12.90 Cannabis use, unspecified, uncomplicated; Z87.891 Personal history of nicotine dependence; Z79.1 Long term (current) use of non-steroidal anti-inflammatories (NSAID)
CPT/HCPCS: 99283

== ENCOUNTER 2021-05-09 11:09 | Emergency (ER) | payer OTHER ==
[2021-05-09 11:23] VITALS: BP 98/65; PULSE 109; RESP 20; TEMP 98.5
--- NOTE | 2021-05-09 12:15 | ED ---
ENT HPI - General Chief complaint: Dental/Oral Stated complaint: dental pain Time Seen by Provider: 05/09/21 11:42 Source: patient Mode of arrival: ambulatory Limitations: no limitations - History of Present Illness Initial comments: Patient is a 40-year-old female presenting to the emergency Department with complaints of increase in her dental abscess pain. She states she first noticed it last week, she did go her dentist on , was prescribed amoxicillin. She states the pain continues and she came back into the ER 3 days ago, was prescribed Augmentin at that time. She states she's been taking Tylenol and Motrin for discomfort this feels like the abscess has been growing. She denies any fevers or chills, no nausea or vomiting, no S pain or short of breath. She states she did try to call her dentist today before coming back and but they were unable to see her. She has no further complaints at this time. Her vitals are stable upon arrival. - Related Data Home Medications Medication Instructions Recorded Confirmed Butalb/APAP/Caff 50-325-40Mg 1 tab PO Q6H PRN 08/27/16 01/24/21 [Fioricet 50-325-40] Cariprazine HCl [Vraylar] 3 mg PO DAILY 08/17/20 01/24/21 Diphenoxylate HCl/Atropine 2 tab PO TID PRN 08/17/20 01/24/21 [Lomotil 2.5-0.025 mg Tablet] Lisinopril [Zestril] 10 mg PO DAILY 08/17/20 01/24/21 Methocarbamol [Robaxin-750] 750 mg PO TID PRN 08/17/20 01/24/21 Pantoprazole [Protonix] 40 mg PO DAILY 08/17/20 01/24/21 Gabapentin 600 mg PO TID 01/24/21 01/24/21 Ibuprofen [Motrin Ib] 800 mg PO Q8H PRN 01/24/21 01/24/21 Zolpidem Tartrate [Ambien] 5 mg PO HS PRN 01/24/21 01/24/21 lamoTRIgine [LaMICtal] 200 mg PO BID 01/24/21 01/24/21 Previous Rx's Medication Instructions Recorded Amoxicillin/Potassium Clav 1 tab PO Q12HR #20 tab 05/05/21 [Augmentin 875-125 Tablet] HYDROcodone/APAP 5-325MG [[place] 1 tab PO Q6HR PRN #12 tab 05/09/21 5-325] Allergies Allergy/AdvReac Type Severity Reaction Status Date / Time cortisone AdvReac causes Verified 05/09/21 11:43 increased pain divalproex sodium AdvReac Vomiting Verified 05/09/21 11:43 [From Depakote] Review of Systems ROS Statement: Those systems with pertinent positive or pertinent negative responses have been documented in the HPI. ROS Other: All systems not noted in ROS Statement are negative. Past Medical History Past Medical History: Hypertension, Neurologic Disorder, Seizure Disorder Additional Past Medical History / Comment(s): migraines,. h/o lymes disease. h/o pseudotumor cerebri History of Any Multi-Drug Resistant Organisms: MRSA Date of last positivie culture/infection: 2001 MDRO Source:: head Past Surgical History: Section, Orthopedic Surgery Additional Past Surgical History / Comment(s): right foot, right shoulder, l umbar shunt Past Anesthesia/Blood Transfusion Reactions: Motion Sickness Past Psychological History: Anxiety, Bipolar Smoking Status: Former smoker Past Alcohol Use History: None Reported Past Drug Use History: Marijuana - Past Family History Mother Family Medical History: No Reported History General Exam - General Exam Comments Initial Comments: GENERAL: Patient is well-developed and well-nourished. Patient is nontoxic and in mild distress. HEAD: Atraumatic, normocephalic. EYES: Pupils equal round and reactive to light, extraocular movements intact, sclera anicteric, conjunctiva are normal. Eyelids were unremarkable. ENT: TMs normal, nares patent, oropharynx clear without exudates. Moist mucous membranes. Patient has a large abscess above tooth #11, which is missing, pain around this area as well. She has no facial swelling. NECK: Normal range of motion, supple without lymphadenopathy or JVD. LUNGS: Unlabored respirations. Breath sounds clear to auscultation bilaterally and equal. No wheezes rales or rhonchi. HEART: Regular rate and rhythm without murmurs, rubs or gallops. ABDOMEN: Soft, nontender, normoactive bowel sounds. No guarding, no rebound. No masses appreciated. : Deferred MUSCULOSKELETAL: Normal extremities with adequate strength and normal range of motion, no pitting or edema. No clubbing or cyanosis. SKIN: Warm, Dry, normal turgor, no rashes or lesions noted. Limitations: no limitations Course Vital Signs 05/09/21 11:20 Temperature 98.5 F Pulse Rate 109 H Respiratory 20 Rate Blood Pressure 98/65 O2 Sat by Pulse 99 Oximetry Procedures - Procedures Initial comment: I used a 23-gauge needle to drain the dental abscess above tooth #11, lots of purulent drainage. she tolerated this very well. Medical Decision Making - Medical Decision Making Patient is a 40-year-old female presenting with worsening pain of her dental abscess above tooth #11. She did have a visible dental abscess, I did drain of this with a 23-gauge needle, she tolerated this very well, lots of purulent fluid was drained. Patient will continue with her already prescribed antibiotic, Augmentin. I will give her a short course of norco. She will follow up with her dentist. She is in agreement with this plan of care and is stable for discharge. Case discussed with Dr. Peguero. Disposition Clinical Impression: Dental abscess, Toothache Disposition: HOME SELF-CARE Condition: Stable Instructions (If sedation given, give patient instructions): Dental Abscess (ED) Additional Instructions: Please return to the Emergency Department if symptoms worsen or any other concerns. Continue with your already prescribed antibiotic. Alternate ibuprofen with Tylenol, may take [place] for more severe pain. Follow-up with your dentist. Prescriptions: HYDROcodone/APAP 5-325MG [[place] 5-325] 1 tab PO Q6HR PRN #12 tab PRN Reason: Pain Is patient prescribed a controlled substance at d/c from ED?: Yes When asked, does pt state using other controlled substances?: No If prescribed controlled substance>3 days was MAPS reviewed?: Prescribed <3 Days If opioid is for acute pain is fill amount 7 days or less?: Yes If Rx opioid, was Start Talking consent form obtained?: Yes Referrals: Jonathan Kulkarni MD [Primary Care Provider] - 1-2 days Time of Disposition: 12:15
== END 2021-05-09 12:20 | disposition home or self-care (01) ==
LOC: EC 11:09
DX: K04.7 Periapical abscess without sinus (principal); I10 Essential (primary) hypertension; G40.909 Epilepsy, unspecified, not intractable, without status epilepticus; F31.9 Bipolar disorder, unspecified; Z87.891 Personal history of nicotine dependence; F12.90 Cannabis use, unspecified, uncomplicated
CPT/HCPCS: 99283

== ENCOUNTER 2021-06-22 13:01 | Inpatient (IN) | payer OTHER ==
[2021-06-22] MEDS ORDERED: SODIUM CHLORIDE 0.9% 1,000 ML IV STA (14:33)
[2021-06-22] MEDS ORDERED: ONDANSETRON 4 MG/2 ML VIAL IVP STA (14:33)
[2021-06-22] MEDS ORDERED: MORPHINE SULFATE 4 MG/ML SYRINGE IV STA (14:33)
[2021-06-22] MEDS ORDERED: DICYCLOMINE 10 MG/ML 2 ML AMP IM STA (14:33)
[2021-06-22] MEDS ORDERED: FAMOTIDINE 20 MG/2 ML VIAL IV STA (14:34)
[2021-06-22 15:16] LABS: Basophils % (A) 0 %; Eosinophils # (A) 0.1 k/uL (0-0.7); Eosinophils % (A) 1 %; HCT 35.1 % (34.0-46.0); HGB 11.4 gm/dL (11.4-16.0); Hypochromasia Slight; Lymphocytes % (A) 12 %; MCH 31.1 pg (25.0-35.0); MCHC 32.5 g/dL (31.0-37.0); MCV 95.6 fL (80.0-100.0); Mean Platelet Volume 9.4; Monocytes # (A) 0.3 k/uL (0-1.0); Monocytes % (A) 3 %; Neutrophils # (A) 6.4 k/uL (1.3-7.7); Neutrophils % (A) 81 %; Platelet Count 242 k/uL (150-450); RBC 3.67 m/uL (3.80-5.40); RDW 15.6 % (11.5-15.5); WBC 7.8 k/uL (3.8-10.6)
[2021-06-22 15:27] LABS: ALT 28 U/L (4-34); AST 38 U/L (14-36); African American GFR (CKD) >90 (>60 ml/min/1.73 sqM); Albumin 4.2 g/dL (3.5-5.0); Alkaline Phosphatase 119 U/L (38-126); Anion Gap 9 mmol/L; Blood Urea Nitrogen 13 mg/dL (7-17); Calcium 9.3 mg/dL (8.4-10.2); Carbon Dioxide 23 mmol/L (22-30); Chloride 103 mmol/L (98-107); Glucose 109 mg/dL (74-99); Lipase 45 U/L (23-300); Non-African American GFR(CKD) 87 (>60 ml/min/1.73 sqM); Potassium 4.8 mmol/L (3.5-5.1); Sodium 135 mmol/L (137-145); Total Bilirubin 0.3 mg/dL (0.2-1.3)
[2021-06-22 15:30] LABS: Appearance,Urine Cloudy (Clear); Bilirubin,Urine Negative (Negative); Blood,Urine Negative (Negative); Color,Urine Yellow; Glucose,Urine (UA) Negative (Negative); Ketones,Urine Negative (Negative); Leukocyte Esterase,Urine Negative (Negative); Mucus,Urine Rare /hpf; Nitrite,Urine Negative (Negative); PH, Urine 5.5 (5.0-8.0); Protein,Urine Trace (Negative); RBC,Urine 1 /hpf (0-5); Specific Gravity,Urine 1.042 (1.001-1.035); Squamous Epithelial Cell,Urine 18 /hpf (0-4); Urobilinogen,Urine <2.0 mg/dL (<2.0); WBC,Urine 2 /hpf (0-5)
[2021-06-22] MEDS ORDERED: HYDROmorphone 0.5 MG/0.5 ML SYRINGE IVP STA (15:46)
--- NOTE | 2021-06-22 15:51 | ED ---
Abdominal Pain HPI - General Chief Complaint: Abdominal Pain Stated Complaint: ABD pain Time Seen by Provider: 06/22/21 14:01 Source: patient Mode of arrival: ambulatory Limitations: no limitations - History of Present Illness Initial Comments: 40-year-old female presenting to the emergency department with a chief complaint of abdominal pain. Patient reports her symptoms and ongoing over the last several days. Patient reports periumbilical abdominal pain that seems to be constant and nonradiating. Patient reports she is developed diarrhea during this period as well. Pain does not appear to post prandial. However, she denies any nausea or vomiting. Denies any increased urgency frequency or dysuria. Denies any vaginal symptoms. Denies any chest and shortness of breath. Denies any fevers or chills. Denies hematuria, hematochezia or melena. - Related Data Home Medications Medication Instructions Recorded Confirmed Lisinopril [Zestril] 10 mg PO DAILY 08/17/20 06/22/21 Pantoprazole [Protonix] 40 mg PO DAILY 08/17/20 06/22/21 Acetaminophen-Codeine 300-30mg 1 tab PO Q6H PRN 06/22/21 06/22/21 [Tylenol w/codeine #3] Butalb/Asprin/Caff 50-325-40Mg 1 cap PO Q6H PRN 06/22/21 06/22/21 [Fiorinal 50-325-40 MG] FLUoxetine HCL [PROzac] 10 mg PO DAILY 06/22/21 06/22/21 Gabapentin 800 mg PO TID 06/22/21 06/22/21 methocarbamoL [Methocarbamol] 750 mg PO TID PRN 06/22/21 06/22/21 Allergies Allergy/AdvReac Type Severity Reaction Status Date / Time cortisone AdvReac causes Verified 06/22/21 15:58 increased pain divalproex sodium AdvReac Vomiting Verified 06/22/21 15:58 [From Depakote] Review of Systems ROS Statement: Those systems with pertinent positive or pertinent negative responses have been documented in the HPI. ROS Other: All systems not noted in ROS Statement are negative. Past Medical History Past Medical History: Hypertension, Neurologic Disorder, Seizure Disorder Additional Past Medical History / Comment(s): migraines,. h/o lymes disease. h/o pseudotumor cerebri History of Any Multi-Drug Resistant Organisms: MRSA Date of last positivie culture/infection: 2001 MDRO Source:: head Past Surgical History: Section, Orthopedic Surgery Additional Past Surgical History / Comment(s): right foot, right shoulder, lumbar shunt Past Anesthesia/Blood Transfusion Reactions: Motion Sickness Past Psychological History: Anxiety, Bipolar Smoking Status: Former smoker Past Alcohol Use History: None Reported Past Drug Use History: Marijuana - Past Family History Mother Family Medical History: No Reported History General Exam Limitations: no limitations General appearance: alert, in no apparent distress, obese Head exam: Present: atraumatic, normocephalic, normal inspection Eye exam: Present: normal appearance, PERRL, EOMI ENT exam: Present: normal exam, normal oropharynx, mucous membranes moist Neck exam: Present: normal inspection, full ROM. Absent: tenderness, lymphadenopathy Respiratory exam: Present: normal lung sounds bilaterally. Absent: respiratory distress, wheezes, rales, rhonchi, stridor Cardiovascular Exam: Present: regular rate, normal rhythm, normal heart sounds. Absent: systolic murmur GI/Abdominal exam: Present: soft, tenderness (Periumbilical tenderness. Negative Stark sign. Negative McBurney point tenderness). Absent: distended, guarding Extremities exam: Present: normal inspection, full ROM Back exam: Present: normal inspection, full ROM. Absent: tenderness, CVA tenderness (R), CVA tenderness (L) Neurological exam: Present: alert, oriented X3 Psychiatric exam: Present: normal affect, normal mood Skin exam: Present: warm, dry, intact, normal color Course Vital Signs 06/22/21 13:18 Temperature 98.4 F Pulse Rate 92 Respiratory 20 Rate Blood Pressure 145/98 O2 Sat by Pulse 98 Oximetry Medical Decision Making - Medical Decision Making 40-year-old female presenting to the emergency department with a chief complaint of abdominal pain. On physical examination, periumbilical abdominal tenderness.laboratory work shows no acute findings. CT of the abdomen and pelvis reveals a partial mechanical bowel obstruction. Patient does have diarrhea and is passing gas. I obtained a Kovic test which came out to be positive. She is not vaccinated. She later revealed that she's been having a nonproductive cough for the last 3 days but no chest pain or shortness of breath. I spoke to who will admit the patient. Nothing by mouth a nd antibiotics. Dr. Kulkarni on consult. Case discussed with Dr. Genao. - Lab Data Result diagrams: 06/22/21 15:02 06/22/21 15:02 Lab Results 06/22/21 06/22/21 06/22/21 Range/Units 15:02 15:02 15:02 WBC 7.8 (3.8-10.6) k/uL RBC 3.67 L (3.80-5.40) m/uL Hgb 11.4 (11.4-16.0) gm/dL Hct 35.1 (34.0-46.0) % MCV 95.6 (80.0-100.0) fL MCH 31.1 (25.0-35.0) pg MCHC 32.5 (31.0-37.0) g/dL RDW 15.6 H (11.5-15.5) % Plt Count 242 (150-450) k/uL MPV 9.4 Neutrophils % 81 % Lymphocytes % 12 % Monocytes % 3 % Eosinophils % 1 % Basophils % 0 % Neutrophils # 6.4 (1.3-7.7) k/uL Lymphocytes # 1.0 (1.0-4.8) k/uL Monocytes # 0.3 (0-1.0) k/uL Eosinophils # 0.1 (0-0.7) k/uL Basophils # 0.0 (0-0.2) k/uL Hypochromasia Slight Sodium 135 L (137-145) mmol/L Potassium 4.8 (3.5-5.1) mmol/L Chloride 103 (98-107) mmol/L Carbon Dioxide 23 (22-30) mmol/L Anion Gap 9 mmol/L BUN 13 (7-17) mg/dL Creatinine 0.85 (0.52-1.04) mg/dL Est GFR (CKD-EPI)AfAm >90 (>60 ml/min/1.73 sqM) Est GFR (CKD-EPI)NonAf 87 (>60 ml/min/1.73 sqM) Glucose 109 H (74-99) mg/dL Calcium 9.3 (8.4-10.2) mg/dL Total Bilirubin 0.3 (0.2-1.3) mg/dL AST 38 H (14-36) U/L ALT 28 (4-34) U/L Alkaline Phosphatase 119 (38-126) U/L Total Protein 7.0 (6.3-8.2) g/dL Albumin 4.2 (3.5-5.0) g/dL Lipase 45 (23-300) U/L Urine Color Yellow Urine Appearance Cloudy H (Clear) Urine pH 5.5 (5.0-8.0) Ur Specific [place] 1.042 H (1.001-1.035) Urine Protein Trace H (Negative) Urine Glucose (UA) Negative (Negative) Urine Ketones Negative (Negative) Urine Blood Negative (Negative) Urine Nitrite Negative (Negative) Urine Bilirubin Negative (Negative) Urine Urobilinogen <2.0 (<2.0) mg/dL Ur Leukocyte Esterase Negative (Negative) Urine RBC 1 (0-5) /hpf Urine WBC 2 (0-5) /hpf Ur Squamous Epith Cells 18 H (0-4) /hpf Urine Mucus Rare H (None) /hpf Urine HCG, Qual (Not Detectd) Coronavirus (PCR) (Not Detectd) 06/22/21 06/22/21 Range/Units 15:02 15:58 WBC (3.8-10.6) k/uL RBC (3.80-5.40) m/uL Hgb (11.4-16.0) gm/dL Hct (34.0-46.0) % MCV (80.0-100.0) fL MCH (25.0-35.0) pg MCHC (31.0-37.0) g/dL RDW (11.5-15.5) % Plt Count (150-450) k/uL MPV Neutrophils % % Lymphocytes % % Monocytes % % Eosinophils % % Basophils % % Neutrophils # (1.3-7.7) k/uL Lymphocytes # (1.0-4.8) k/uL Monocytes # (0-1.0) k/uL Eosinophils # (0-0.7) k/uL Basophils # (0-0.2) k/uL Hypochromasia Sodium (137-145) mmol/L Potassium (3.5-5.1) mmol/L Chloride (98-107) mmol/L Carbon Dioxide (22-30) mmol/L Anion Gap mmol/L BUN (7-17) mg/dL Creatinine (0.52-1.04) mg/dL Est GFR (CKD-EPI)AfAm (>60 ml/min/1.73 sqM) Est GFR (CKD-EPI)NonAf (>60 ml/min/1.73 sqM) Glucose (74-99) mg/dL Calcium (8.4-10.2) mg/dL Total Bilirubin (0.2-1.3) mg/dL AST (14-36) U/L ALT (4-34) U/L Alkaline Phosphatase (38-126) U/L Total Protein (6.3-8.2) g/dL Albumin (3.5-5.0) g/dL Lipase (23-300) U/L Urine Color Urine Appearance (Clear) Urine pH (5.0-8.0) Ur Specific [place] (1.001-1.035) Urine Protein (Negative) Urine Glucose (UA) (Negative) Urine Ketones (Negative) Urine Blood (Negative) Urine Nitrite (Negative) Urine Bilirubin (Negative) Urine Urobilinogen (<2.0) mg/dL Ur Leukocyte Esterase (Negative) Urine RBC (0-5) /hpf Urine WBC (0-5) /hpf Ur Squamous Epith Cells (0-4) /hpf Urine Mucus (None) /hpf Urine HCG, Qual Not Detected (Not Detectd) Coronavirus (PCR) Detected A (Not Detectd) Disposition Clinical Impression: Bowel obstruction Disposition: ADMITTED IP TO THIS [facility] Condition: Fair Is patient prescribed a controlled substance at d/c from ED?: No Referrals: Jonathan Kulkarni MD [Primary Care Provider] - 1-2 days Time of Disposition: 18:27
--- NOTE | 2021-06-22 16:56 | CT ---
EXAMINATION TYPE: CT abdomen pelvis w con DATE OF EXAM: 06/22/2021 COMPARISON: None 05/02/2013 HISTORY: Generalized pain with fever. CT DLP: 2843 mGycm Automated exposure control for dose reduction was used. CONTRAST: Performed with IV Contrast, patient injected with 100 mL of Isovue 300. There is minimal subsegmental atelectasis right lung base. Heart size is normal. There is no pericard ial effusion. There is no pleural effusion. Liver spleen stomach pancreas gallbladder appear normal. The bile ducts are not dilated. There is no adrenal mass. Kidneys show satisfactory contrast opacification. There is no hydronephrosi s. There is normal excretion on the delayed images. There is 4 mm calculus lower pole right kidney. T here are several calculi in the left kidney up to 6 mm. There is no retroperitoneal adenopathy. Urete rs are not dilated. Bladder distends smoothly. Uterus is anteverted. There is no inguinal hernia. The re is no free fluid in the pelvis. There is probably a 2 cm cyst on the right ovary. Lumbar vertebra have normal alignment. There is spinal catheter noted at the L2-3 level in the spinal canal. Lumbar disc spaces are fairly normal. There is no compression fracture. The bony pelvis is in tact. The hip joints are intact. There is subcutaneous rounded fluid collection consistent with reservoir for the spinal catheter over the right anterior mid abdomen. This measures 8 cm in length. There are multiple dilated fluid-filled loops of small bowel in the mid abdomen. There are multiple a ir-fluid levels. Small bowel measures up to 4.5 cm. Large bowel is not dilated. The distal small arnold l is not dilated. Transition point is not identified. There is no ascites. There is no sign of free a ir. There is no mesenteric edema. I see no intestinal wall thickening. Appendix is not seen. There is no sign of thickened appendix. IMPRESSION: Dilated small bowel with fluid levels suggestive of partial mechanical obstruction or small bowel ile us. This appears new compared to old exam. There is clearing of a dilated fluid-filled large bowel lo ops compared to old exam.
[2021-06-22] MEDS ORDERED: LORazepam 2 MG/ML INJ IV PRN (18:18)
[2021-06-22] MEDS ORDERED: ONDANSETRON 4 MG/2 ML VIAL IVP PRN (18:18)
[2021-06-22] MEDS ORDERED: NALOXONE 0.4 MG/ML 1 ML VIAL IV PRN (18:18)
[2021-06-22] MEDS ORDERED: HYDROmorphone 0.5 MG/0.5 ML SYRINGE IVP PRN (18:18)
[2021-06-22] MEDS ORDERED: PIPERACILLIN-TAZOBACTAM 3.375 GM in SODIUM CHLORIDE 0.9% 100 ML IVPB STA (18:28)
[2021-06-22] MEDS: SODIUM CHLORIDE 0.9% 1,000 ML IV SCH ×2 (18:35→20:13)
[2021-06-22] MEDS: MORPHINE SULFATE 4 MG/ML SYRINGE IV PRN ×2 (20:20→23:57)
[2021-06-23] MEDS: MORPHINE SULFATE 4 MG/ML SYRINGE IV PRN ×3 (09:43→21:57)
[2021-06-23] MEDS: GABAPENTIN 400 MG CAP PO SCH ×3 (09:45→21:20)
[2021-06-23] MEDS: FLUoxetine HCL 10 MG CAP PO SCH (09:45)
[2021-06-23] MEDS: lisinopriL 10 MG TAB PO SCH (09:45)
[2021-06-23] MEDS: PANTOPRAZOLE 40 MG TABLET PO SCH (09:45)
--- NOTE | 2021-06-23 11:17 | P.GSHP ---
History of Present Illness H&P Date: 06/23/21 Chief Complaint: Small bowel obstruction Is a 40-year-old female who was admitted through the emergency room with complaints of abdominal pain. Patient was seen in the emergency room. Her CAT scan shows evidence of a partial small bowel structure. Patient states that she's had multiple bowel movements this morning. Past Medical History Past Medical History: Hypertension, Neurologic Disorder, Seizure Disorder Additional Past Medical History / Comment(s): migraines,. h/o lymes disease. h/o pseudotumor cerebri History of Any Multi-Drug Resistant Organisms: MRSA Date of last positivie culture/infection: 2001 MDRO Source:: head Past Surgical History: Section, Orthopedic Surgery Additional Past Surgical History / Comment(s): right foot, right shoulder, lumbar shunt Past Anesthesia/Blood Transfusion Reactions: Motion Sickness Past Psychological History: Anxiety, Bipolar, Depression Smoking Status: Current some day smoker Past Alcohol Use History: None Reported Past Drug Use History: Marijuana - Past Family History Mother Family Medical History: No Reported History Medications and Allergies Home Medications Medication Instructions Recorded Confirmed Type Lisinopril [Zestril] 10 mg PO DAILY 08/17/20 06/22/21 History Pantoprazole [Protonix] 40 mg PO DAILY 08/17/20 06/22/21 History Acetaminophen-Codeine 300-30mg 1 tab PO Q6H PRN 06/22/21 06/22/21 History [Tylenol w/codeine #3] Butalb/Asprin/Caff 50-325-40Mg 1 cap PO Q6H PRN 06/22/21 06/22/21 History [Fiorinal 50-325-40 MG] FLUoxetine HCL [PROzac] 10 mg PO DAILY 06/22/21 06/22/21 History Gabapentin 800 mg PO TID 06/22/21 06/22/21 History methocarbamoL [Methocarbamol] 750 mg PO TID PRN 06/22/21 06/22/21 History Allergies Allergy/AdvReac Type Severity Reaction Status Date / Time cortisone AdvReac causes Verified 06/22/21 15:58 increased pain divalproex sodium AdvReac Vomiting Verified 06/22/21 15:58 [From Depakote] Surgical - Exam Vital Signs Temp Pulse Resp BP Pulse Ox 98.4 F 92 20 145/98 98 06/22/21 13:18 06/22/21 13:18 06/22/21 13:18 06/22/21 13:18 06/22/21 13:18 - General well developed, well nourished, no distress - Eyes PERRL - ENT normal pinna - Neck no masses - Respiratory normal expansion - Cardiovascular Rhythm: regular - Abdomen Abdomen: soft, non tender Results - Labs 06/22/21 15:02 06/22/21 15:02 Abnormal Lab Results - Last 24 Hours (Table) 06/22/21 06/22/21 06/22/21 Range/Units 15:02 15:02 15:02 RBC 3.67 L (3.80-5.40) m/uL RDW 15.6 H (11.5-15.5) % Sodium 135 L (137-145) mmol/L Glucose 109 H (74-99) mg/dL AST 38 H (14-36) U/L Urine Appearance Cloudy H (Clear) Ur Specific [place] 1.042 H (1.001-1.035) Urine Protein Trace H (Negative) Ur Squamous Epith Cells 18 H (0-4) /hpf Urine Mucus Rare H (None) /hpf Coronavirus (PCR) (Not Detectd) 06/22/21 Range/Units 15:58 RBC (3.80-5.40) m/uL RDW (11.5-15.5) % Sodium (137-145) mmol/L Glucose (74-99) mg/dL AST (14-36) U/L Urine Appearance (Clear) Ur Specific [place] (1.001-1.035) Urine Protein (Negative) Ur Squamous Epith Cells (0-4) /hpf Urine Mucus (None) /hpf Coronavirus (PCR) Detected A (Not Detectd) Diabetes panel 06/22/21 Range/Units 15:02 Sodium 135 L (137-145) mmol/L Potassium 4.8 (3.5-5.1) mmol/L Chloride 103 (98-107) mmol/L Carbon Dioxide 23 (22-30) mmol/L BUN 13 (7-17) mg/dL Creatinine 0.85 (0.52-1.04) mg/dL Glucose 109 H (74-99) mg/dL Calcium 9.3 (8.4-10.2) mg/dL AST 38 H (14-36) U/L ALT 28 (4-34) U/L Alkaline Phosphatase 119 (38-126) U/L Total Protein 7.0 (6.3-8.2) g/dL Albumin 4.2 (3.5-5.0) g/dL Calcium panel 06/22/21 Range/Units 15:02 Calcium 9.3 (8.4-10.2) mg/dL Albumin 4.2 (3.5-5.0) g/dL Pituitary panel 06/22/21 Range/Units 15:02 Sodium 135 L (137-145) mmol/L Potassium 4.8 (3.5-5.1) mmol/L Chloride 103 (98-107) mmol/L Carbon Dioxide 23 (22-30) mmol/L BUN 13 (7-17) mg/dL Creatinine 0.85 (0.52-1.04) mg/dL Glucose 109 H (74-99) mg/dL Calcium 9.3 (8.4-10.2) mg/dL Adrenal panel 06/22/21 Range/Units 15:02 Sodium 135 L (137-145) mmol/L Potassium 4.8 (3.5-5.1) mmol/L Chloride 103 (98-107) mmol/L Carbon Dioxide 23 (22-30) mmol/L BUN 13 (7-17) mg/dL Creatinine 0.85 (0.52-1.04) mg/dL Glucose 109 H (74-99) mg/dL Calcium 9.3 (8.4-10.2) mg/dL Total Bilirubin 0.3 (0.2-1.3) mg/dL AST 38 H (14-36) U/L ALT 28 (4-34) U/L Alkaline Phosphatase 119 (38-126) U/L Total Protein 7.0 (6.3-8.2) g/dL Albumin 4.2 (3.5-5.0) g/dL Assessment and Plan Assessment: Partial small bowel structure. Patient will start on clear liquids.
--- NOTE | 2021-06-23 11:28 | P.CONS ---
History of Present Illness - Reason for Consult Consult date: 06/23/21 Med management Requesting physician: Jan Allred - Chief Complaint abd pain,SBO,cov 19 poss - History of Present Illness 40 y/o female well known to practice presents to Hosp with chief c/o abd pain, poss cov 19, no resp c/o, only GI type c/o ie; abd pain and partial SBO . denies chest pain, denies sob Review of Systems Constitutional: Reports as per HPI, Reports malaise Ears, nose, mouth and throat: Reports as per HPI Cardiovascular: Reports as per HPI Respiratory: Reports as per HPI Gastrointestinal: Reports abdominal pain, Reports dyspepsia (loose stool) Genitourinary: Reports as per HPI Menstruation: Reports as per HPI Musculoskeletal: Reports as per HPI Integumentary: Reports as per HPI Neurological: Reports as per HPI Psychiatric: Reports anhedonia, Reports anxiety, Reports depression (bipolar by history) Past Medical History Past Medical History: Hypertension, Neurologic Disorder, Seizure Disorder Additional Past Medical History / Comment(s): migraines,. h/o lymes disease. h/o pseudotumor cerebri History of Any Multi-Drug Resistant Organisms: MRSA Year Discovered:: 2001 MDRO Source:: head Past Surgical History: Section, Orthopedic Surgery Additional Past Surgical History / Comment(s): right foot, right shoulder, lumbar shunt Past Anesthesia/Blood Transfusion Reactions: Motion Sickness Past Psychological History: Anxiety, Bipolar, Depression Smoking Status: Current some day smoker Past Alcohol Use History: None Reported Past Drug Use History: Marijuana - Past Family History Mother Family Medical History: No Reported History Medications and Allergies Home Medications Medication Instructions Recorded Confirmed Type Lisinopril [Zestril] 10 mg PO DAILY 08/17/20 06/22/21 History Pantoprazole [Protonix] 40 mg PO DAILY 08/17/20 06/22/21 History Acetaminophen-Codeine 300-30mg 1 tab PO Q6H PRN 06/22/21 06/22/21 History [Tylenol w/codeine #3] Butalb/Asprin/Caff 50-325-40Mg 1 cap PO Q6H PRN 06/22/21 06/22/21 History [Fiorinal 50-325-40 MG] FLUoxetine HCL [PROzac] 10 mg PO DAILY 06/22/21 06/22/21 History Gabapentin 800 mg PO TID 06/22/21 06/22/21 History methocarbamoL [Methocarbamol] 750 mg PO TID PRN 06/22/21 06/22/21 History Allergies Allergy/AdvReac Type Severity Reaction Status Date / Time cortisone AdvReac causes Verified 06/22/21 15:58 increased pain divalproex sodium AdvReac Vomiting Verified 06/22/21 15:58 [From Depakote] Physical Exam Osteopathic Statement: *. No significant issues noted on an osteopathic structural exam other than those noted in the History and Physical/Consult. Vitals: Vital Signs Temp Pulse Pulse Resp BP BP Pulse Ox 06/23/21 08:39 66 18 06/23/21 08:00 98.4 F 69 16 117/79 97 06/23/21 02:30 97.3 F L 66 18 121/80 99 06/22/21 22:58 98.4 F 75 18 132/85 98 06/22/21 18:32 99 F 89 20 162/89 96 06/22/21 13:18 98.4 F 92 20 145/98 98 Intake and Output 06/22/21 06/23/21 06/23/21 22:59 06:59 14:59 Other: Voiding Method Toilet # Voids 1 # Bowel Movements 0 Weight 127.006 kg awake alert oriented x 3 afebrile, morbidly obese Heent adrienne,Eomi TMs wnl thyroid wnl, no jvd, no bruit Heart : rrr no murmur Lung: clear to asscultation bilat abd obese soft diffuse abd guera, sparse bs, EXT: no edema no cyanosis no claudication Results CBC & Chem 7: 06/22/21 15:02 06/22/21 15:02 Labs: Abnormal Lab Results - Last 24 Hours (Table) 06/22/21 06/22/21 06/22/21 Range/Units 15:02 15:02 15:02 RBC 3.67 L (3.80-5.40) m/uL RDW 15.6 H (11.5-15.5) % Sodium 135 L (137-145) mmol/L Glucose 109 H (74-99) mg/dL AST 38 H (14-36) U/L Urine Appearance Cloudy H (Clear) Ur Specific [place] 1.042 H (1.001-1.035) Urine Protein Trace H (Negative) Ur Squamous Epith Cells 18 H (0-4) /hpf Urine Mucus Rare H (None) /hpf Coronavirus (PCR) (Not Detectd) 06/22/21 Range/Units 15:58 RBC (3.80-5.40) m/uL RDW (11.5-15.5) % Sodium (137-145) mmol/L Glucose (74-99) mg/dL AST (14-36) U/L Urine Appearance (Clear) Ur Specific [place] (1.001-1.035) Urine Protein (Negative) Ur Squamous Epith Cells (0-4) /hpf Urine Mucus (None) /hpf Coronavirus (PCR) Detected A (Not Detectd) Assessment and Plan (1) Bowel obstruction Narrative/Plan: partial sbo ,poss bs, poss BMs Current Visit: Yes Status: Acute Code(s): K56.609 - UNSP INTESTNL OBST, UNSP TO PARTIAL VERSUS COMPLETE OBST SNOMED Code(s): 84229358 (2) Bipolar II disorder, mild, depressed, with anxious distress Narrative/Plan: controled on current meds Current Visit: No Status: Acute Priority: High Code(s): F31.81 - BIPOLAR II DISORDER SNOMED Code(s): 69157742 (3) Cannabis use disorder, mild, abuse Current Visit: No Status: Acute Priority: Medium Code(s): F12.10 - CANNABIS ABUSE, UNCOMPLICATED SNOMED Code(s): 52252301 Plan: start omar,vit C vit B vitD consider cholchesine above for cov 19 clear liq diet antisipate d/c home in 24 hours Time with Patient: Greater than 30
[2021-06-23] MEDS: BUTALB/APAP/CAFF 50-325-40MG TAB PO PRN ×2 (16:30→21:31)
[2021-06-23] MEDS: methocarbamoL 750 MG TAB PO PRN (16:49)
[2021-06-23] MEDS: SODIUM CHLORIDE 0.9% 1,000 ML IV SCH (23:06)
[2021-06-24] MEDS: SODIUM CHLORIDE 0.9% 1,000 ML IV SCH ×3 (01:21→21:35)
[2021-06-24] MEDS: GABAPENTIN 400 MG CAP PO SCH ×3 (08:03→21:30)
[2021-06-24] MEDS: BUTALB/APAP/CAFF 50-325-40MG TAB PO PRN ×2 (08:03→17:32)
[2021-06-24] MEDS: lisinopriL 10 MG TAB PO SCH (08:03)
[2021-06-24] MEDS: COLCHICINE 0.6 MG EACH PO SCH (08:04)
[2021-06-24] MEDS: FLUoxetine HCL 10 MG CAP PO SCH (08:04)
[2021-06-24] MEDS: PANTOPRAZOLE 40 MG TABLET PO SCH (08:04)
[2021-06-24] MEDS: MORPHINE SULFATE 4 MG/ML SYRINGE IV PRN ×3 (09:56→21:31)
--- NOTE | 2021-06-24 12:26 | P.PN ---
Progress Note - Text Progress Note Date: 06/24/21 The patient has had multiple bowel movements. She states that she has some mild diffuse abdominal pain. On exam her vital signs appear stable. Abdomen soft. Resolving ileus/partial small bowel structure. Patient will continue to receive supportive care. Her diet will be advanced to regular diet.
[2021-06-24] MEDS: methocarbamoL 750 MG TAB PO PRN (13:07)
[2021-06-25] MEDS: SODIUM CHLORIDE 0.9% 1,000 ML IV SCH ×2 (05:16→15:22)
[2021-06-25] MEDS: PANTOPRAZOLE 40 MG TABLET PO SCH (07:02)
[2021-06-25] MEDS: FLUoxetine HCL 10 MG CAP PO SCH (07:02)
[2021-06-25] MEDS: COLCHICINE 0.6 MG EACH PO SCH (07:02)
[2021-06-25] MEDS: GABAPENTIN 400 MG CAP PO SCH ×2 (07:03→17:16)
[2021-06-25] MEDS: lisinopriL 10 MG TAB PO SCH (07:03)
[2021-06-25] MEDS: methocarbamoL 750 MG TAB PO PRN (10:58)
[2021-06-25] MEDS ORDERED: ACETAMINOPHEN TAB 325 MG TAB PO PRN (11:57)
[2021-06-25] MEDS ORDERED: MAG HYDROX/AL HYDROX/SIMETH 30 ML CUP PO ONE (12:00)
--- NOTE | 2021-06-25 12:25 | P.PN ---
Subjective Progress Note Date: 06/25/21 This is a 40-year-old female admitted with partial small bowel obstruction, positive Covid-19 and multiple other medical issues. Tolerating regular diet, no nausea vomiting or diarrhea, positive bowel movement. Received morphine during the night for abdominal pain, currently controlled this morning. Shari loganined on COVID-19 cocktail. Afebrile, maintaining O2 sats in the 90s on room air. Denies chest pain, palpitations or shortness of breath. Objective - Vital Signs Vital signs: Vital Signs Temp 97.9 F 06/25/21 09:28 Pulse 71 06/25/21 09:28 Resp 17 06/25/21 09:28 BP 143/86 06/25/21 09:28 Pulse Ox 96 06/25/21 09:28 Intake & Output 06/24/21 06/25/21 06/25/21 18:59 06:59 18:59 Intake Total 2160 Balance 2160 Intake: Oral 2160 Other: Voiding Method Toilet Toilet # Voids 4 - Exam GENERAL:A&O x 3 afebrile, morbidly obese Heent adrienne,Eomi TMs wnl thyroid wnl, no jvd Heart : rrr no murmur Lung: clear to asscultation bilat abd obese soft diffuse abd guera, positive bs, EXT: no edema no cyanosis no claudication - Labs CBC & Chem 7: 06/22/21 15:02 06/22/21 15:02 Assessment and Plan Assessment: (1) Bowel obstruction Narrative/Plan: partial sbo ,poss bs, poss BMs Current Visit: Yes Status: Acute Code(s): K56.609 - UNSP INTESTNL OBST, UNSP TO PARTIAL VERSUS COMPLETE OBST SNOMED Code(s): 05439992 (2) Bipolar II disorder, mild, depressed, with anxious distress Narrative/Plan: controled on current meds Current Visit: No Status: Acute Priority: High Code(s): F31.81 - BIPOLAR II DISORDER SNOMED Code(s): 70613230 (3) Cannabis use disorder, mild, abuse Current Visit: No Status: Acute Priority: Medium Code(s): F12.10 - CANNABIS ABUSE, UNCOMPLICATED SNOMED Code(s): 91712571 Plan: Continue on current medication regime ,monitoring and symptomatic treatment. Increase ambulation as tolerated. Maintain Covid cocktail. Anticipate discharge. Follow-up with PCP in 10 days after quarantine completed. The impression and plan of care has been dictated as directed. : I performed a history and examination of this patient, discussed the same with the dictator. I agree with the dictator's note ,documented as a scribe. Any additional findings or plans will be noted.
[2021-06-25 14:50] VITALS: BP 134/74; PULSE 69; RESP 18; TEMP 98.4
--- NOTE | 2021-06-25 17:24 | P.DS ---
Providers Date of admission: 06/22/21 18:42 Expected date of discharge: 06/25/21 Attending physician: Jan Allred Consults: 06/22/21 18:19 Consult Physician Routine Consulting Provider: Jonathan Kulkarni Consult Reason/Comments: Bowel obstruction Do you want consulting provider notified?: Yes Primary care physician: Jonathan Kulkarni [facility] Course: This is a 40-year-old female who was diagnosed with Coban admitted to the hospital for partial small bowel structure. Patient's symptoms resolved spontaneously. Patient did well. She was discharged home on 06/25/2021 Patient Condition at Discharge: Fair Plan - Discharge Summary Discharge Rx Participant: No New Discharge Prescriptions: No Action Pantoprazole [Protonix] 40 mg PO DAILY Lisinopril [Zestril] 10 mg PO DAILY Gabapentin 800 mg PO TID Butalb/Asprin/Caff 50-325-40Mg [Fiorinal 50-325-40 MG] 1 cap PO Q6H PRN PRN Reason: Migraine Headache Acetaminophen-Codeine 300-30mg [Tylenol w/codeine #3] 1 tab PO Q6H PRN PRN Reason: Pain FLUoxetine HCL [PROzac] 10 mg PO DAILY methocarbamoL [Methocarbamol] 750 mg PO TID PRN PRN Reason: Muscle Pain Discharge Medication List Lisinopril [Zestril] 10 mg PO DAILY 08/17/20 [History] Pantoprazole [Protonix] 40 mg PO DAILY 08/17/20 [History] Acetaminophen-Codeine 300-30mg [Tylenol w/codeine #3] 1 tab PO Q6H PRN 06/22/21 [History] Butalb/Asprin/Caff 50-325-40Mg [Fiorinal 50-325-40 MG] 1 cap PO Q6H PRN 06/22/21 [History] FLUoxetine HCL [PROzac] 10 mg PO DAILY 06/22/21 [History] Gabapentin 800 mg PO TID 06/22/21 [History] methocarbamoL [Methocarbamol] 750 mg PO TID PRN 06/22/21 [History] Follow up Appointment(s)/Referral(s): Jonathan Kulkarni MD [Primary Care Provider] - 10 Days (After completing Covid quarantine) Jan Allred MD [STAFF PHYSICIAN] - 2 Weeks () Patient Instructions/Handouts: Coronavirus Disease 2019 (COVID-19), Bowel Obstruction (DC)
== END 2021-06-25 18:44 | disposition home or self-care (01) | DRG 388 ==
LOC: EC 13:01 → 4SSUR 18:42
PROVIDERS: ADMIT Surgery; ATTEND Surgery
DX: K56.600 Partial intestinal obstruction, unspecified as to cause (principal); U07.1 COVID-19; Z68.42 Body mass index [BMI] 45.0-49.9, adult; F31.31 Bipolar disorder, current episode depressed, mild; Z79.899 Other long term (current) drug therapy; E66.01 Morbid (severe) obesity due to excess calories; I10 Essential (primary) hypertension; G40.909 Epilepsy, unspecified, not intractable, without status epilepticus; G43.909 Migraine, unspecified, not intractable, without status migrainosus; Z98.891 History of uterine scar from previous surgery; Z87.39 Personal history of other diseases of the musculoskeletal system and connective tissue; Z86.69 Personal history of other diseases of the nervous system and sense organs; Z98.2 Presence of cerebrospinal fluid drainage device; Z86.14 Personal history of Methicillin resistant Staphylococcus aureus infection; Z86.19 Personal history of other infectious and parasitic diseases; Z98.890 Other specified postprocedural states; Z88.8 Allergy status to other drugs, medicaments and biological substances; F41.9 Anxiety disorder, unspecified; F17.200 Nicotine dependence, unspecified, uncomplicated; F12.10 Cannabis abuse, uncomplicated
CPT/HCPCS: 36415; 74177; 80053; 81001; 81025; 83690; 85025; 87635; 96361; 96372; 96374; 96375; 99285

== ENCOUNTER 2021-09-15 16:20 | Emergency (ER) | payer OTHER ==
[2021-09-15 16:45] VITALS: TEMP 98.3
[2021-09-15] MEDS ORDERED: diphenhydrAMINE 50 MG/ML 1 ML VIAL IVP STA (17:16)
[2021-09-15] MEDS ORDERED: KETOROLAC 15 MG/ML 1 ML VIAL IVP STA (17:16)
[2021-09-15] MEDS ORDERED: METOCLOPRAMIDE 5 MG/ML 2 ML VIAL IVP STA (17:16)
[2021-09-15] MEDS ORDERED: SODIUM CHLORIDE 0.9% 500 ML 500 ML IV STA (17:16)
[2021-09-15] MEDS ORDERED: MORPHINE SULFATE 4 MG/ML SYRINGE IVP STA (17:29)
--- NOTE | 2021-09-15 18:39 | ED ---
Headache HPI - General Chief Complaint: Headache Stated Complaint: migraine Time Seen by Provider: 09/15/21 17:15 Source: patient, RN notes reviewed Mode of arrival: ambulatory Limitations: no limitations - History of Present Illness Initial Comments: Patient is a 40-year-old female that presents to the emergency department complaining of migraine headache 3 days patient oh she does have chronic migraines takes Fioricet at home. She notes that her at home medications are not working. She no she comes the hospital if her symptoms, counter control for symptom medic control. She denied any new symptoms or issues. She denied chest pain shortness of breath nausea vomiting diarrhea constipation fever fatigue chills. - Related Data Home Medications Medication Instructions Recorded Confirmed Lisinopril [Zestril] 10 mg PO DAILY 08/17/20 06/22/21 Pantoprazole [Protonix] 40 mg PO DAILY 08/17/20 06/22/21 Acetaminophen-Codeine 300-30mg 1 tab PO Q6H PRN 06/22/21 06/22/21 [Tylenol w/codeine #3] Butalb/Asprin/Caff 50-325-40Mg 1 cap PO Q6H PRN 06/22/21 06/22/21 [Fiorinal 50-325-40 MG] FLUoxetine HCL [PROzac] 10 mg PO DAILY 06/22/21 06/22/21 Gabapentin 800 mg PO TID 06/22/21 06/22/21 methocarbamoL [Methocarbamol] 750 mg PO TID PRN 06/22/21 06/22/21 Allergies Allergy/AdvReac Type Severity Reaction Status Date / Time cortisone AdvReac causes Verified 09/15/21 16:45 increased pain divalproex sodium AdvReac Vomiting Verified 09/15/21 16:45 [From Depakote] Review of Systems ROS Statement: Those systems with pertinent positive or pertinent negative responses have been documented in the HPI. ROS Other: All systems not noted in ROS Statement are negative. Past Medical History Past Medical History: Hypertension, Neurologic Disorder, Seizure Disorder Additional Past Medical History / Comment(s): migraines,. h/o lymes disease. h/o pseudotumor cerebri History of Any Multi-Drug Resistant Organisms: MRSA Date of last positivie culture/infection: 2001 MDRO Source:: head Past Surgical History: Section, Orthopedic Surgery Additional Past Surgical History / Comment(s): right foot, right shoulder, lumbar shunt Past Anesthesia/Blood Transfusion Reactions: Motion Sickness Past Psychological History: Anxiety, Bipolar, Depression Smoking Status: Current some day smoker Past Alcohol Use History: None Reported Past Drug Use History: Marijuana - Past Family History Mother Family Medical History: No Reported History General Exam Limitations: no limitations General appearance: alert, in no apparent distress, obese Head exam: Present: atraumatic, normocephalic, normal inspection Eye exam: Present: normal appearance, PERRL, EOMI. Absent: scleral icterus, conjunctival injection, periorbital swelling ENT exam: Present: normal exam, mucous membranes moist Neck exam: Present: normal inspection Respiratory exam: Present: normal lung sounds bilaterally. Absent: respiratory distress, wheezes, rales, rhonchi, stridor Cardiovascular Exam: Present: regular rate, normal rhythm, normal heart sounds. Absent: systolic murmur, diastolic murmur, rubs, gallop, clicks GI/Abdominal exam: Present: soft, normal bowel sounds. Absent: distended, tenderness, guarding, rebound, rigid Extremities exam: Present: normal inspection, full ROM, normal capillary refill. Absent: tenderness, pedal edema, joint swelling, calf tenderness Neurological exam: Present: alert, oriented X3 Psychiatric exam: Present: normal affect, normal mood Skin exam: Present: warm, dry, intact, normal color. Absent: rash Course Vital Signs 09/15/21 16:41 Temperature 98.3 F Pulse Rate 85 Respiratory 20 Rate Blood Pressure 152/90 O2 Sat by Pulse 97 Oximetry Medical Decision Making - Medical Decision Making 40-year-old female complaining of migraine type headache for 3 days. Normal saline, 4 mg of morphine, 59 g Benadryl, 4 mg Zofran ordered. Upon reevaluation patient states that she is feeling better and a little bit tired. She wishes to go home. Case discussed with Dr. Peguero, patient discharge home with follow-up primary care. Disposition Clinical Impression: Migraine headache Disposition: HOME SELF-CARE Condition: Stable Instructions (If sedation given, give patient instructions): Acute Headache (ED) Additional Instructions: Please return to the Emergency Department if symptoms worsen or any other concerns. Follow-up primary care 1-2 days. Continue take at home pain medications as prescribed. Follow-up with specialists as needed. Is patient prescribed a controlled substance at d/c from ED?: No Referrals: Jonathan Kulkarni MD [Primary Care Provider] - 1-2 days Time of Disposition: 18:39
[2021-09-15 18:48] VITALS: BP 155/89; PULSE 87; RESP 18
== END 2021-09-15 18:48 | disposition home or self-care (01) ==
LOC: EC 16:20
DX: G43.909 Migraine, unspecified, not intractable, without status migrainosus (principal); I10 Essential (primary) hypertension; F41.9 Anxiety disorder, unspecified; F32.A Depression, unspecified; F17.200 Nicotine dependence, unspecified, uncomplicated; F12.90 Cannabis use, unspecified, uncomplicated; Z88.1 Allergy status to other antibiotic agents
CPT/HCPCS: 99283; 96374; 96375 ×2; 96361; J2270; J1200; J2765

== ENCOUNTER 2021-09-18 15:13 | Emergency (ER) | payer OTHER ==
[2021-09-18 15:54] VITALS: TEMP 97.7
[2021-09-18] MEDS ORDERED: FUROSEMIDE 10 MG/ML 2 ML VIAL IV STA (19:17)
[2021-09-18] MEDS ORDERED: KETOROLAC 30 MG/ML 1 ML VIAL IVP STA (19:17)
[2021-09-18] MEDS ORDERED: PROCHLORPERAZINE INJ 10 MG/2 ML VIAL IVP STA (19:17)
[2021-09-18] MEDS ORDERED: diphenhydrAMINE 50 MG/ML 1 ML VIAL IVP STA (19:17)
[2021-09-18] MEDS ORDERED: KETOROLAC 30 MG/ML 1 ML VIAL ONE (19:19)
[2021-09-18 20:11] VITALS: RESP 18
--- NOTE | 2021-09-18 20:50 | CT ---
EXAMINATION TYPE: CT brain wo con DATE OF EXAM: 09/18/2021 COMPARISON: 10/17/2016 HISTORY: migraine CT DLP: 1110.4 mGycm Automated exposure control for dose reduction was used. Ventricles have normal size. There is no mass effect nor midline shift. There is no sign of intracran ial hemorrhage. Calvarium is intact. IMPRESSION: Negative unenhanced head CT scan. No change.
--- NOTE | 2021-09-18 21:29 | ED ---
Headache HPI - General Chief Complaint: Headache Stated Complaint: Headache Time Seen by Provider: 09/18/21 18:40 Mode of arrival: ambulatory Limitations: no limitations - History of Present Illness Initial Comments: 40-year-old female patient presents to the emergency department today for evaluation of migraine headache for the last 5 days. States she does have history of pseudotumor cerebri does have a indwelling shunt. States she was seen and evaluated for this similar headache on Friday. Today she reports light sensitivity, sound sensitivity, and nausea. Denies any vomiting. Denies any fever or chills. States that the headache feels similar to her previous migraine headaches but the pain is a little worse. She denies any recent head injury. Denies numbness, tingling, weakness to her extremities. - Related Data Home Medications Medication Instructions Recorded Confirmed Lisinopril [Zestril] 10 mg PO DAILY 08/17/20 09/18/21 Pantoprazole [Protonix] 40 mg PO DAILY 08/17/20 09/18/21 Acetaminophen-Codeine 300-30mg 1 tab PO Q8H PRN 06/22/21 09/18/21 [Tylenol w/codeine #3] Butalb/Asprin/Caff 50-325-40Mg 1 cap PO Q6H PRN 06/22/21 09/18/21 [Fiorinal 50-325-40 MG] FLUoxetine HCL [PROzac] 10 mg PO DAILY 06/22/21 09/18/21 Gabapentin 800 mg PO TID 06/22/21 09/18/21 methocarbamoL [Methocarbamol] 750 mg PO TID PRN 06/22/21 09/18/21 Ibuprofen [Motrin] 800 mg PO Q8H PRN 09/18/21 09/18/21 Allergies Allergy/AdvReac Type Severity Reaction Status Date / Time cortisone AdvReac causes Verified 09/18/21 19:27 increased pain divalproex sodium AdvReac Vomiting Verified 09/18/21 19:27 [From Depakote] Review of Systems ROS Statement: Those systems with pertinent positive or pertinent negative responses have been documented in the HPI. ROS Other: All systems not noted in ROS Statement are negative. Past Medical History Past Medical History: Hypertension, Neurologic Disorder, Seizure Disorder Additional Past Medical History / Comment(s): migraines,. h/o lymes disease. h/o pseudotumor cerebri History of Any Multi-Drug Resistant Organisms: MRSA Date of last positivie culture/infection: 2001 MDRO Source:: head Past Surgical History: Section, Orthopedic Surgery Additional Past Surgical History / Comment(s): right foot, right shoulder, lumbar shunt Past Anesthesia/Blood Transfusion Reactions: Motion Sickness Past Psychological History: Anxiety, Bipolar, Depression Smoking Status: Current some day smoker Past Alcohol Use History: None Reported Past Drug Use History: Marijuana - Past Family History Mother Family Medical History: No Reported History General Exam Limitations: no limitations General appearance: alert, in no apparent distress, other (This is a well- developed, well-nourished adult female patient in mild distress related to pain.) Eye exam: Present: normal appearance, PERRL, EOMI. Absent: scleral icterus, conjunctival injection, nystagmus, periorbital swelling Respiratory exam: Present: normal lung sounds bilaterally. Absent: respiratory distress, wheezes, rales, rhonchi, stridor Cardiovascular Exam: Present: regular rate, normal rhythm, normal heart sounds. Absent: systolic murmur, diastolic murmur, rubs, gallop, clicks GI/Abdominal exam: Present: soft, normal bowel sounds. Absent: distended, tende rness, guarding, rebound, rigid Neurological exam: Present: alert, oriented X3, CN II-XII intact Expanded Speech: Present: fluid speech Cranial nerves: EOM's Intact: Normal, Nystagmus: Normal Motor strength exam: RUE: 5, LUE: 5, RLE: 5, LLE: 5 Psychiatric exam: Present: normal affect, normal mood Skin exam: Present: warm, dry, intact, normal color. Absent: rash Course Vital Signs 09/18/21 09/18/21 09/18/21 15:52 20:10 21:36 Temperature 97.7 F Pulse Rate 79 77 72 Respiratory 19 18 18 Rate Blood Pressure 146/92 138/72 130/70 O2 Sat by Pulse 99 98 98 Oximetry Medical Decision Making - Medical Decision Making 40-year-old female patient presents for evaluation of migraine headache. Physical examination is unremarkable. She is neurologically intact with no focal deficits. IV was inserted she was given several medications. CT brain was negative. Upon reevaluation she is resting more comfortably. Her pain is 5 out of 10 on the pain scale. It we did offer to perform sphenopalatine block. She was offered additional medication for headache, she declined. She declined and preferred to be discharged home. She is instructed to follow-up with her primary care physician as well as her neurologist as soon as possible. Return parameters were discussed in detail. She verbalizes understanding and agrees with this plan. Case discussed with my attending Dr. Ogden. - Radiology Data Radiology results: report reviewed, image reviewed HEENT brain without contrast was obtained. Report was reviewed in its entirety. Impression by Dr. Black shows negative unenhanced head computed tomography scan. No change. Disposition Clinical Impression: Migraine headache Disposition: HOME SELF-CARE Condition: Good Instructions (If sedation given, give patient instructions): Migraine Headache (ED) Additional Instructions: Follow-up with your neurologist as soon as possible. Return to the emergency department for any new, worsening, or concerning symptoms. Is patient prescribed a controlled substance at d/c from ED?: No Referrals: Jonathan Kulkarni MD [Primary Care Provider] - 1-2 days Michael Cassidy MD [Medical Doctor] - 1-2 days Time of Disposition: 21:29
[2021-09-18 21:37] VITALS: BP 130/70; PULSE 72
== END 2021-09-18 21:43 | disposition home or self-care (01) ==
LOC: EC 15:13
DX: G43.909 Migraine, unspecified, not intractable, without status migrainosus (principal); I10 Essential (primary) hypertension; G40.909 Epilepsy, unspecified, not intractable, without status epilepticus; F41.9 Anxiety disorder, unspecified; F31.9 Bipolar disorder, unspecified; F17.200 Nicotine dependence, unspecified, uncomplicated; F12.90 Cannabis use, unspecified, uncomplicated; Z79.899 Other long term (current) drug therapy
CPT/HCPCS: 70450; 99283; 96374; 96375 ×3; J1200; J0780; J1940; J1885

== ENCOUNTER 2022-01-28 11:33 | Emergency (ER) | payer OTHER ==
[2022-01-28 11:54] VITALS: BP 174/105; PULSE 64; RESP 20; TEMP 98.1
[2022-01-28] MEDS ORDERED: PROCHLORPERAZINE INJ 10 MG/2 ML VIAL IVP STA (12:29)
[2022-01-28] MEDS ORDERED: HYDROmorphone 1 MG/ML 1 ML SYRINGE IVP STA (12:29)
[2022-01-28] MEDS ORDERED: KETOROLAC 15 MG/ML 1 ML VIAL IVP STA (12:30)
[2022-01-28] MEDS ORDERED: SODIUM CHLORIDE 0.9% 1,000 ML IV STA (12:30)
--- NOTE | 2022-01-28 12:35 | ED ---
Headache HPI - General Chief Complaint: Headache Stated Complaint: migraine Time Seen by Provider: 01/28/22 12:10 Source: patient, RN notes reviewed, old records reviewed Mode of arrival: ambulatory Limitations: no limitations - History of Present Illness Initial Comments: 41-year-old female history migraine headaches who states she's had a headache for about a week typical of her migraines but this morning he got worse is frontal in nature sharp 9/10 in severity she developed nausea vomiting this morning she has some lightheadedness and dizziness decreased oral intake. No neck or back pain a loss of function to her upper or lower extremities. MD Complaint: headache - Related Data Home Medications Medication Instructions Recorded Confirmed FLUoxetine HCL [PROzac] 10 mg PO DAILY 06/22/21 01/28/22 Butalb/APAP/Caff 50-325-40Mg 1 tab PO Q6H PRN 01/28/22 01/28/22 [Fioricet 50-325-40] Diphenoxylate HCl/Atropine 1 tab PO TID PRN 01/28/22 01/28/22 [Lomotil 2.5-0.025 mg Tablet] FLUoxetine HCL [PROzac] 20 mg PO DAILY 01/28/22 01/28/22 Gabapentin [Neurontin] 400 mg PO TID 01/28/22 01/28/22 Methocarbamol [Robaxin-750] 750 mg PO TID PRN 01/28/22 01/28/22 Omeprazole 40 mg PO DAILY 01/28/22 01/28/22 SUMAtriptan [SUMAtriptan Nasal 20 mg NASAL TID PRN 01/28/22 01/28/22 [place]] SUMAtriptan succinate [Imitrex] 50 mg PO DAILY PRN 01/28/22 01/28/22 lamoTRIgine [LaMICtal] 200 mg PO BID 01/28/22 01/28/22 Allergies Allergy/AdvReac Type Severity Reaction Status Date / Time cortisone AdvReac causes Verified 01/28/22 14:14 increased pain divalproex sodium AdvReac Vomiting Verified 01/28/22 14:14 [From Depakote] Review of Systems ROS Statement: Those systems with pertinent positive or pertinent negative responses have been documented in the HPI. ROS Other: All systems not noted in ROS Statement are negative. Past Medical History Past Medical History: Hypertension, Neurologic Disorder, Seizure Disorder Additional Past Medical History / Comment(s): migraines,. h/o lymes disease. h/o pseudotumor cerebri History of Any Multi-Drug Resistant Organisms: MRSA Date of last positivie culture/infection: 2001 MDRO Source:: head Past Surgical History: Section, Orthopedic Surgery Additional Past Surgical History / Comment(s): right foot, right shoulder, lumbar shunt, Past Anesthesia/Blood Transfusion Reactions: Motion Sickness Past Psychological History: Anxiety, Bipolar, Depression Smoking Status: Current some day smoker Past Alcohol Use History: None Reported Past Drug Use History: Marijuana - Past Family History Mother Family Medical History: No Reported History General Exam - General Exam Comments Initial Comments: This is a well-developed well-nourished awake alert oriented 3 female Limitations: no limitations General appearance: alert, anxious, in distress Head exam: Present: atraumatic, normocephalic, normal inspection Eye exam: Present: normal appearance, PERRL, EOMI. Absent: scleral icterus, conjunctival injection, periorbital swelling ENT exam: Present: mucous membranes dry Neck exam: Present: normal inspection. Absent: tenderness, meningismus, lymphadenopathy Respiratory exam: Present: normal lung sounds bilaterally. Absent: respiratory distress, wheezes, rales, rhonchi, stridor Cardiovascular Exam: Present: regular rate, normal rhythm, normal heart sounds. Absent: systolic murmur, diastolic murmur, rubs, gallop, clicks GI/Abdominal exam: Present: soft, normal bowel sounds. Absent: distended, tenderness, guarding, rebound, rigid Extremities exam: Present: normal inspection, full ROM, normal capillary refill. Absent: tenderness, pedal edema, joint swelling, calf tenderness Back exam: Present: normal inspection Neurological exam: Present: alert, oriented X3, CN II-XII intact Psychiatric exam: Present: normal affect, normal mood Skin exam: Present: warm, dry, intact, normal color. Absent: rash Course Vital Signs 01/28/22 11:48 Temperature 98.1 F Pulse Rate 64 Respiratory 20 Rate Blood Pressure 174/105 O2 Sat by Pulse 100 Oximetry Medical Decision Making - Medical Decision Making Patient did get relief from the medication were given she would like to go home she'll be discharged the presentation is consistent with a migraine headache. Also I'm depletion. Disposition Clinical Impression: Migraine headache, Dehydration Disposition: HOME SELF-CARE Condition: Good Instructions (If sedation given, give patient instructions): Acute Headache (ED), Migraine Headache (ED), Dehydration (ED) Is patient prescribed a controlled substance at d/c from ED?: No Referrals: None,Stated [Primary Care Provider] - 1-2 days Decision Time: 15:30
== END 2022-01-28 16:27 | disposition home or self-care (01) ==
LOC: EC 11:33
DX: G43.909 Migraine, unspecified, not intractable, without status migrainosus (principal); E86.0 Dehydration; I10 Essential (primary) hypertension; G40.909 Epilepsy, unspecified, not intractable, without status epilepticus; F31.9 Bipolar disorder, unspecified; F41.9 Anxiety disorder, unspecified; F17.200 Nicotine dependence, unspecified, uncomplicated; F12.90 Cannabis use, unspecified, uncomplicated; Z79.899 Other long term (current) drug therapy
CPT/HCPCS: 99283; 96374; 96375 ×2; 96361; J0780; J1170; J1885; 99284

== ENCOUNTER 2022-02-28 15:43 | Emergency (ER) | payer OTHER ==
[2022-02-28] MEDS ORDERED: diphenhydrAMINE 50 MG/ML 1 ML VIAL IVP STA (17:45)
[2022-02-28] MEDS ORDERED: METOCLOPRAMIDE 5 MG/ML 2 ML VIAL IVP STA (17:45)
[2022-02-28] MEDS ORDERED: SODIUM CHLORIDE 0.9% 1,000 ML IV STA (17:45)
[2022-02-28] MEDS ORDERED: BUTALB/APAP/CAFF 50-325-40MG TAB PO STA (17:46)
--- NOTE | 2022-02-28 18:11 | ED ---
Headache HPI - General Chief Complaint: Headache Stated Complaint: Headache Time Seen by Provider: 02/28/22 17:23 Mode of arrival: ambulatory Limitations: no limitations - History of Present Illness Initial Comments: Patient is a 41-year-old female with history of migraines presenting with chief complaint of migraine. She states that this most recent episode has lasted for several days. She states that she frequently gets home during the time of her menstrual cycle, which is what triggered this episode. Patient has been taking Imitrex at home without any relief. Otherwise no supportive treatment taken at home. She states that the location is primarily in the forehead temples and eyes. She admits to light sensitivity. Patient states that this feels like her typical migraine attack. She denies any fever, chills, neck stiffness, vision or hearing changes, photophobia, cough, URI like symptoms, chest pain, shortness of breath, palpitations, weakness, recent fall or injury, seizure, loss consciousness, nausea, vomiting. - Related Data Home Medications Medication Instructions Recorded Confirmed FLUoxetine HCL [PROzac] 10 mg PO DAILY 06/22/21 02/28/22 Butalb/APAP/Caff 50-325-40Mg 1 tab PO Q6H PRN 01/28/22 02/28/22 [Fioricet 50-325-40] Diphenoxylate HCl/Atropine 1 tab PO TID PRN 01/28/22 02/28/22 [Lomotil 2.5-0.025 mg Tablet] FLUoxetine HCL [PROzac] 20 mg PO DAILY 01/28/22 02/28/22 Methocarbamol [Robaxin-750] 750 mg PO BID PRN 01/28/22 02/28/22 Omeprazole 40 mg PO DAILY 01/28/22 02/28/22 SUMAtriptan succinate [Imitrex] 50 mg PO DAILY PRN 01/28/22 02/28/22 lamoTRIgine [LaMICtal] 200 mg PO BID 01/28/22 02/28/22 Aimovig Unknown Dose 1 injection SQ Q30D 02/28/22 02/28/22 Gabapentin 600 mg PO TID 02/28/22 02/28/22 Previous Rx's Medication Instructions Recorded Butalb/APAP/Caff 50-325-40Mg 1 tab PO Q4H PRN #30 tablet 02/28/22 [Fioricet 50-325-40] Allergies Allergy/AdvReac Type Severity Reaction Status Date / Time cortisone AdvReac causes Verified 02/28/22 18:20 increased pain divalproex sodium AdvReac Vomiting Verified 02/28/22 18:20 [From Depakote] Review of Systems ROS Statement: Those systems with pertinent positive or pertinent negative responses have been documented in the HPI. ROS Other: All systems not noted in ROS Statement are negative. Past Medical History Past Medical History: Hypertension, Neurologic Disorder, Seizure Disorder Additional Past Medical History / Comment(s): migraines,. h/o lymes disease. h/o pseudotumor cerebri History of Any Multi-Drug Resistant Organisms: MRSA Date of last positivie culture/infection: 2001 MDRO Source:: head Past Surgical History: Section, Orthopedic Surgery Additional Past Surgical History / Comment(s): right foot, right shoulder, lumbar shunt, Past Anesthesia/Blood Transfusion Reactions: Motion Sickness Past Psychological History: Anxiety, Bipolar, Depression Smoking Status: Current some day smoker Past Alcohol Use History: None Reported Past Drug Use History: Marijuana - Past Family History Mother Family Medical History: No Reported History General Exam Limitations: no limitations General appearance: alert, in no apparent distress Head exam: Present: atraumatic, normocephalic, normal inspection Eye exam: Present: normal appearance, PERRL, EOMI. Absent: scleral icterus, conjunctival injection, periorbital swelling Pupils: Present: normal accommodation Neck exam: Present: normal inspection, full ROM. Absent: tenderness Respiratory exam: Present: normal lung sounds bilaterally. Absent: respiratory distress, wheezes, rales, rhonchi, stridor Cardiovascular Exam: Present: regular rate, normal rhythm, normal heart sounds. Absent: systolic murmur, diastolic murmur, rubs, gallop, clicks Neurological exam: Present: alert, oriented X3, CN II-XII intact Psychiatric exam: Present: normal affect, normal mood Skin exam: Present: warm, dry, intact, normal color. Absent: rash Course Vital Signs 02/28/22 02/28/22 15:54 19:28 Temperature 98.8 F 98.3 F Pulse Rate 84 73 Respiratory 16 18 Rate Blood Pressure 148/99 139/82 O2 Sat by Pulse 96 100 Oximetry Medical Decision Making - Medical Decision Making Patient is a 41-year-old female with history of migraine headaches presenting with chief complaint of headache. She states that it feels typical with her usual migraines, located mainly in the forehead and eyes and temples. This been going on for the last several days, she has been taking Imitrex with no relief. On exam there are no focal neurological deficits. Patient was given migraine cocktail and reassessed. On reassessment patient is resting comfortably states that her migraine is somewhat alleviated. I provided her with a prescription for Fioricet. Do not combine Tylenol with spherocyte. Educated her and supportive treatment. Educated on return parameters and alarming symptoms. Answered all questions. Report back to ER if any worsening symptoms. Patient conveyed verbal understanding and agreed to the plan. Disposition Clinical Impression: Migraine Disposition: HOME SELF-CARE Condition: Good Instructions (If sedation given, give patient instructions): Acute Headache (ED) Additional Instructions: Follow up with PCP 1 week. Take medication as prescribed. Do not take Tylenol with fierocet. Report back to ER with any worsening symptoms. Prescriptions: Butalb/APAP/Caff 50-325-40Mg [Fioricet 50-325-40] 1 tab PO Q4H PRN #30 tablet PRN Reason: Headache Is patient prescribed a controlled substance at d/c from ED?: No Referrals: None,Stated [Primary Care Provider] - 03/04/22 Time of Disposition: 19:16
[2022-02-28 19:29] VITALS: BP 139/82; PULSE 73; RESP 18; TEMP 98.3
== END 2022-02-28 19:20 | disposition home or self-care (01) ==
LOC: EC 15:43
DX: G43.909 Migraine, unspecified, not intractable, without status migrainosus (principal); I10 Essential (primary) hypertension
CPT/HCPCS: 99284; 96374; 96375; 96361; J1200; J2765

== ENCOUNTER 2022-03-22 18:23 | Emergency (ER) | payer OTHER ==
--- NOTE | 2022-03-22 19:31 | XR ---
EXAMINATION TYPE: XR chest 2V DATE OF EXAM: 03/22/2022 COMPARISON: NONE HISTORY: Short of breath TECHNIQUE: 2 views FINDINGS: Heart and mediastinum are normal. Lungs are clear. Diaphragm is normal. Bony thorax appears normal. IMPRESSION: Normal chest.
--- NOTE | 2022-03-22 22:24 | ED ---
General Adult HPI - General Chief complaint: Shortness of Breath Stated complaint: SOB Time Seen by Provider: 03/22/22 21:51 Source: patient Mode of arrival: ambulatory Limitations: no limitations - History of Present Illness Initial comments: Patient is a 41-year-old woman who complains of having approximately one week of generalized fatigue and exertional dyspnea. She states that it reminds her of previous episode of anemia that she was diagnosed with. She has not noticed any dyspnea at rest. No fever or chills. No cough or chest pain. She denies change in urination or bowel movements. No leg pain or swelling. On review of systems, patient states she is having a migraine headache. She states that she gets these nearly daily and that this is typical of her headaches. Onset/Timin -: week(s) Severity scale (1-10): 0 Consistency: constant Improves with: none Worsens with: other (Exertion) Associated Symptoms: weakness Treatments Prior to Arrival: none - Related Data Home Medications Medication Instructions Recorded Confirmed FLUoxetine HCL [PROzac] 10 mg PO DAILY 06/22/21 02/28/22 Butalb/APAP/Caff 50-325-40Mg 1 tab PO Q6H PRN 01/28/22 02/28/22 [Fioricet 50-325-40] Diphenoxylate HCl/Atropine 1 tab PO TID PRN 01/28/22 02/28/22 [Lomotil 2.5-0.025 mg Tablet] FLUoxetine HCL [PROzac] 20 mg PO DAILY 01/28/22 02/28/22 Methocarbamol [Robaxin-750] 750 mg PO BID PRN 01/28/22 02/28/22 Omeprazole 40 mg PO DAILY 01/28/22 02/28/22 SUMAtriptan succinate [Imitrex] 50 mg PO DAILY PRN 01/28/22 02/28/22 lamoTRIgine [LaMICtal] 200 mg PO BID 01/28/22 02/28/22 Aimovig Unknown Dose 1 injection SQ Q30D 02/28/22 02/28/22 Gabapentin 600 mg PO TID 02/28/22 02/28/22 Previous Rx's Medication Instructions Recorded Butalb/APAP/Caff 50-325-40Mg 1 tab PO Q4H PRN #30 tablet 02/28/22 [Fioricet 50-325-40] Allergies Allergy/AdvReac Type Severity Reaction Status Date / Time cortisone AdvReac causes Verified 03/22/22 19:02 increased pain divalproex sodium AdvReac Vomiting Verified 03/22/22 19:02 [From Depakote] Review of Systems ROS Statement: Those systems with pertinent positive or pertinent negative responses have been documented in the HPI. ROS Other: All systems not noted in ROS Statement are negative. Constitutional: Reports: weakness Eyes: Denies: vision change ENT: Denies: congestion Respiratory: Denies: cough, dyspnea Cardiovascular: Reports: dyspnea on exertion. Denies: chest pain, palpitations, orthopnea, edema, syncope Gastrointestinal: Denies: abdominal pain, vomiting, diarrhea Genitourinary: Denies: dysuria, hematuria Musculoskeletal: Denies: back pain Skin: Denies: rash Neurological: Reports: headache (Chronic headaches). Denies: weakness, numbness Past Medical History Past Medical History: Hypertension, Neurologic Disorder, Seizure Disorder Additional Past Medical History / Comment(s): migraines,. h/o lymes disease. h/o pseudotumor cerebri History of Any Multi-Drug Resistant Organisms: MRSA Date of last positivie culture/infection: 2001 MDRO Source:: head Past Surgical History: Section, Orthopedic Surgery Additional Past Surgical History / Comment(s): right foot, right shoulder, lumbar shunt, Past Anesthesia/Blood Transfusion Reactions: Motion Sickness Past Psychological History: Anxiety, Bipolar, Depression Smoking Status: Current some day smoker Past Alcohol Use History: None Reported Past Drug Use History: Marijuana - Past Family History Mother Family Medical History: No Reported History General Exam Limitations: no limitations General appearance: alert, in no apparent distress Head exam: Present: atraumatic, normocephalic Eye exam: Present: normal appearance. Absent: scleral icterus, conjunctival injection ENT exam: Present: normal oropharynx Neck exam: Present: normal inspection, full ROM Respiratory exam: Present: normal lung sounds bilaterally. Absent: respiratory distress, wheezes, rales, rhonchi, stridor Cardiovascular Exam: Present: regular rate, normal rhythm, normal heart sounds. Absent: systolic murmur, diastolic murmur, rubs, gallop GI/Abdominal exam: Present: soft. Absent: distended, tenderness, guarding, rebound, rigid, mass Extremities exam: Present: normal inspection, normal capillary refill. Absent: pedal edema, calf tenderness Back exam: Present: normal inspection. Absent: CVA tenderness (R), CVA tenderness (L) Neurological exam: Present: alert. Absent: motor sensory deficit Skin exam: Present: warm, dry, intact, normal color. Absent: rash Course Vital Signs 03/22/22 03/23/22 18:59 00:07 Temperature 99.5 F Pulse Rate 87 70 Respiratory 18 16 Rate Blood Pressure 149/103 153/92 O2 Sat by Pulse 98 97 Oximetry Medical Decision Making - Lab Data Result diagrams: 03/22/22 23:50 03/22/22 23:50 Lab Results 03/22/22 03/22/22 03/22/22 Range/Units 19:09 19:09 23:50 WBC 11.8 H (3.8-10.6) k/uL RBC 3.83 (3.80-5.40) m/uL Hgb 10.5 L (11.4-16.0) gm/dL Hct 34.3 (34.0-46.0) % MCV 89.6 (80.0-100.0) fL MCH 27.5 (25.0-35.0) pg MCHC 30.7 L (31.0-37.0) g/dL RDW 15.7 H (11.5-15.5) % Plt Count 322 (150-450) k/uL MPV 8.9 Neutrophils % 74 % Lymphocytes % 20 % Monocytes % 3 % Eosinophils % 1 % Basophils % 0 % Neutrophils # 8.7 H (1.3-7.7) k/uL Lymphocytes # 2.3 (1.0-4.8) k/uL Monocytes # 0.4 (0-1.0) k/uL Eosinophils # 0.1 (0-0.7) k/uL Basophils # 0.0 (0-0.2) k/uL Hypochromasia Slight PT (9.0-12.0) sec INR (<1.2) APTT (22.0-30.0) sec Sodium (137-145) mmol/L Potassium (3.5-5.1) mmol/L Chloride (98-107) mmol/L Carbon Dioxide (22-30) mmol/L Anion Gap mmol/L BUN (7-17) mg/dL Creatinine (0.52-1.04) mg/dL Est GFR (CKD-EPI)AfAm (>60 ml/min/1.73 sqM) Est GFR (CKD-EPI)NonAf (>60 ml/min/1.73 sqM) Glucose (74-99) mg/dL Calcium (8.4-10.2) mg/dL Total Bilirubin (0.2-1.3) mg/dL AST (14-36) U/L ALT (4-34) U/L Alkaline Phosphatase (38-126) U/L Troponin I (0.000-0.034) ng/mL Total Protein (6.3-8.2) g/dL Albumin (3.5-5.0) g/dL TSH (0.465-4.680) mIU/L Coronavirus (PCR) Not Detected (Not Detectd) Influenza Type A RNA Not Detected (Not Detectd) Influenza Type B (PCR) Not Detected (Not Detectd) 03/22/22 03/22/22 03/22/22 Range/Units 23:50 23:50 23:50 WBC (3.8-10.6) k/uL RBC (3.80-5.40) m/uL Hgb (11.4-16.0) gm/dL Hct (34.0-46.0) % MCV (80.0-100.0) fL MCH (25.0-35.0) pg MCHC (31.0-37.0) g/dL RDW (11.5-15.5) % Plt Count (150-450) k/uL MPV Neutrophils % % Lymphocytes % % Monocytes % % Eosinophils % % Basophils % % Neutrophils # (1.3-7.7) k/uL Lymphocytes # (1.0-4.8) k/uL Monocytes # (0-1.0) k/uL Eosinophils # (0-0.7) k/uL Basophils # (0-0.2) k/uL Hypochromasia PT 10.0 (9.0-12.0) sec INR 0.9 (<1.2) APTT 24.2 (22.0-30.0) sec Sodium 136 L (137-145) mmol/L Potassium 4.0 (3.5-5.1) mmol/L Chloride 101 (98-107) mmol/L Carbon Dioxide 26 (22-30) mmol/L Anion Gap 9 mmol/L BUN 11 (7-17) mg/dL Creatinine 0.91 (0.52-1.04) mg/dL Est GFR (CKD-EPI)AfAm >90 (>60 ml/min/1.73 sqM) Est GFR (CKD-EPI)NonAf 79 (>60 ml/min/1.73 sqM) Glucose 87 (74-99) mg/dL Calcium 9.0 (8.4-10.2) mg/dL Total Bilirubin 0.2 (0.2-1.3) mg/dL AST 18 (14-36) U/L ALT 15 (4-34) U/L Alkaline Phosphatase 128 H (38-126) U/L Troponin I <0.012 (0.000-0.034) ng/mL Total Protein 7.3 (6.3-8.2) g/dL Albumin 4.3 (3.5-5.0) g/dL TSH 1.490 (0.465-4.680) mIU/L Coronavirus (PCR) (Not Detectd) Influenza Type A RNA (Not Detectd) Influenza Type B (PCR) (Not Detectd) Disposition Clinical Impression: Fatigue Disposition: HOME SELF-CARE Condition: Fair Instructions (If sedation given, give patient instructions): Fatigue (ED) Is patient prescribed a controlled substance at d/c from ED?: No Referrals: Juni Deng [STAFF PHYSICIAN] - 1-2 days Sharyn Conory MD [STAFF PHYSICIAN] - 1-2 days
[2022-03-22] MEDS ORDERED: BUTALB/APAP/CAFF 50-325-40MG TAB PO STA (22:25)
[2022-03-23 00:08] VITALS: RESP 16
[2022-03-23 01:02] LABS: Basophils % (A) 0 %; Eosinophils # (A) 0.1 k/uL (0-0.7); Eosinophils % (A) 1 %; HCT 34.3 % (34.0-46.0); HGB 10.5 gm/dL (11.4-16.0); Hypochromasia Slight; Lymphocytes # (A) 2.3 k/uL (1.0-4.8); Lymphocytes % (A) 20 %; MCH 27.5 pg (25.0-35.0); MCHC 30.7 g/dL (31.0-37.0); MCV 89.6 fL (80.0-100.0); Mean Platelet Volume 8.9; Monocytes # (A) 0.4 k/uL (0-1.0); Monocytes % (A) 3 %; Neutrophils # (A) 8.7 k/uL (1.3-7.7); Neutrophils % (A) 74 %; Platelet Count 322 k/uL (150-450); RBC 3.83 m/uL (3.80-5.40); RDW 15.7 % (11.5-15.5); WBC 11.8 k/uL (3.8-10.6)
[2022-03-23 01:08] LABS: INR 0.9 (<1.2); Partial Thromboplastin Time 24.2 sec (22.0-30.0)
[2022-03-23 01:14] LABS: ALT 15 U/L (4-34); AST 18 U/L (14-36); African American GFR (CKD) >90 (>60 ml/min/1.73 sqM); Albumin 4.3 g/dL (3.5-5.0); Alkaline Phosphatase 128 U/L (38-126); Anion Gap 9 mmol/L; Blood Urea Nitrogen 11 mg/dL (7-17); Carbon Dioxide 26 mmol/L (22-30); Chloride 101 mmol/L (98-107); Glucose 87 mg/dL (74-99); Non-African American GFR(CKD) 79 (>60 ml/min/1.73 sqM); Sodium 136 mmol/L (137-145); Total Bilirubin 0.2 mg/dL (0.2-1.3); Total Protein 7.3 g/dL (6.3-8.2)
[2022-03-23 02:36] VITALS: BP 161/86; PULSE 72; TEMP 97.9
== END 2022-03-23 02:35 | disposition home or self-care (01) ==
LOC: EC 18:23
DX: R53.83 Other fatigue (principal); I10 Essential (primary) hypertension; F17.200 Nicotine dependence, unspecified, uncomplicated; Z20.822 Contact with and (suspected) exposure to COVID-19; Z88.8 Allergy status to other drugs, medicaments and biological substances
CPT/HCPCS: 36415; 71046; 80053; 84443; 84484; 85025; 85610; 85730; 87502; 87635; 93005

== ENCOUNTER 2022-11-08 10:37 | Emergency (ER) | payer OTHER ==
[2022-11-08 10:47] VITALS: TEMP 98.7
[2022-11-08] MEDS ORDERED: SODIUM CHLORIDE 0.9% 1,000 ML IV STA (10:56)
[2022-11-08] MEDS ORDERED: METOCLOPRAMIDE 5 MG/ML 2 ML VIAL IVP STA (10:56)
[2022-11-08] MEDS ORDERED: KETOROLAC 15 MG/ML 1 ML VIAL IVP STA (10:56)
[2022-11-08] MEDS ORDERED: DEXAMETHASONE SOD PHOSPHATE 10 MG/ML 1 ML VIAL IVP STA (10:56)
[2022-11-08] MEDS ORDERED: diphenhydrAMINE 50 MG/ML 1 ML VIAL IVP STA (10:56)
[2022-11-08] MEDS ORDERED: ONDANSETRON 4 MG/2 ML VIAL IVP STA (11:03)
--- NOTE | 2022-11-08 11:57 | ED ---
Headache HPI - General Chief Complaint: Headache Stated Complaint: Migraine Time Seen by Provider: 11/08/22 10:52 Mode of arrival: ambulatory Limitations: no limitations - History of Present Illness Initial Comments: Patient is a 41-year-old female who presents to the emergency department with a chief complaint of migraine x 2 weeks. Patient has history of migraines, states this feels similar. Pain is across her forehead and behind her eyes. She denies blurred vision, double vision, fever, chills, neck pain. Patient saw her neurologist yesterday who she states gave a migraine cocktail. Patient went home little relief. - Related Data Home Medications Medication Instructions Recorded Confirmed FLUoxetine HCL [PROzac] 10 mg PO DAILY 06/22/21 02/28/22 Butalb/APAP/Caff 50-325-40Mg 1 tab PO Q6H PRN 01/28/22 02/28/22 [Fioricet 50-325-40] Diphenoxylate HCl/Atropine 1 tab PO TID PRN 01/28/22 02/28/22 [Lomotil 2.5-0.025 mg Tablet] FLUoxetine HCL [PROzac] 20 mg PO DAILY 01/28/22 02/28/22 Omeprazole 40 mg PO DAILY 01/28/22 02/28/22 SUMAtriptan succinate [Imitrex] 50 mg PO DAILY PRN 01/28/22 02/28/22 lamoTRIgine [LaMICtal] 200 mg PO BID 01/28/22 02/28/22 methocarbamoL [Robaxin-750] 750 mg PO BID PRN 01/28/22 02/28/22 Aimovig Unknown Dose 1 injection SQ Q30D 02/28/22 02/28/22 Gabapentin 600 mg PO TID 02/28/22 02/28/22 Previous Rx's Medication Instructions Recorded Butalb/APAP/Caff 50-325-40Mg 1 tab PO Q4H PRN #30 tablet 02/28/22 [Fioricet 50-325-40] Allergies Allergy/AdvReac Type Severity Reaction Status Date / Time cortisone AdvReac causes Verified 11/08/22 10:47 increased pain divalproex sodium AdvReac Vomiting Verified 11/08/22 10:47 [From Depakote] Review of Systems ROS Statement: Those systems with pertinent positive or pertinent negative responses have been documented in the HPI. ROS Other: All systems not noted in ROS Statement are negative. Past Medical History Past Medical History: Hypertension, Neurologic Disorder, Seizure Disorder Additional Past Medical History / Comment(s): migraines,. h/o lymes disease. h/o pseudotumor cerebri History of Any Multi-Drug Resistant Organisms: MRSA Date of last positivie culture/infection: 2001 MDRO Source:: head Past Surgical History: Section, Orthopedic Surgery Additional Past Surgical History / Comment(s): right foot, right shoulder, lumbar shunt, Past Anesthesia/Blood Transfusion Reactions: Motion Sickness Past Psychological History: Anxiety, Bipolar, Depression Smoking Status: Current every day smoker Past Alcohol Use History: None Reported Past Drug Use History: Marijuana - Past Family History Mother Family Medical History: No Reported History General Exam Limitations: no limitations General appearance: alert, in no apparent distress Head exam: Present: atraumatic, normocephalic, normal inspection Eye exam: Present: normal appearance, PERRL, EOMI. Absent: scleral icterus, conjunctival injection, periorbital swelling Neck exam: Present: normal inspection, full ROM. Absent: tenderness Respiratory exam: Present: normal lung sounds bilaterally. Absent: respiratory distress, wheezes, rales, rhonchi, stridor Cardiovascular Exam: Present: regular rate, normal rhythm, normal heart sounds. Absent: systolic murmur, diastolic murmur, rubs, gallop, clicks Psychiatric exam: Present: normal affect, normal mood Skin exam: Present: warm, dry, intact, normal color. Absent: rash Course Vital Signs 11/08/22 11/08/22 10:44 12:03 Temperature 98.7 F Pulse Rate 83 67 Respiratory 20 18 Rate Blood Pressure 196/96 139/91 O2 Sat by Pulse 98 96 Oximetry Medical Decision Making - Medical Decision Making Was pt. sent in by a medical professional or institution (, PA, E COMMERCE ANALYST, urgent care, hospital, or jail...) When possible be specific @ -[No] Did you speak to anyone other than the patient for history (EMS, parent, family, police, friend...)? What history was obtained from this source @ -[No] Did you review nursing and triage notes (agree or disagree)? Why? @ -[I reviewed and agree with nursing and triage notes] Were old charts reviewed (outside hosp., previous admission, EMS record, old EK G, old radiological studies, urgent care reports/EKG's, jail records)? Report findings @ -[No old charts were reviewed] Differential Diagnosis (chest pain, altered mental status, abdominal pain women, abdominal pain men, vaginal bleeding, weakness, fever, dyspnea, syncope, headache, dizziness, GI bleed, back pain, seizure, CVA, palpatations, mental he alth)? @ Differential Headache: Migraine, tension, cluster, carbon monoxide, central venous thrombosis, pension karma temporal arteritis, acute closure glaucoma, intercranial hemorrhage, mastoiditis, sinusitis, head injury, this is not meant to be an all-inclusive list. EKG interpreted by me (3pts min.). @ -[As above] X-rays interpreted by me (1pt min.). @ -[None done] CT interpreted by me (1pt min.). @ -[None done] U/S interpreted by me (1pt. min.). @ -[None done] What testing was considered but not performed or refused? (CT, X-rays, U/S, labs)? Why? @ -[None] What meds were considered but not given or refused? Why? @ -[None] Did you discuss the management of the patient with other professionals (professionals i.e. , PA, E COMMERCE ANALYST, lab, RT, psych nurse, professor of social work, school year nanny, teacher, inspectors and regulatory officers, case management specialist)? Give summary @ -[No] Was smoking cessation discussed for >3mins.? @ -[No] Was critical care preformed (if so, how long)? @ -[No] Were there social determinants of health that impacted care today? How? (Homelessness, low income, unemployed, alcoholism, drug addiction, transportation, low edu. Level, literacy, decrease access to med. care, intermediate, rehab)? @ -[No] Was there de-escalation of care discussed even if they declined (Discuss DNR or withdrawal of care, Hospice)? DNR status @ -[No] What co-morbidities impacted this encounter? (DM, HTN, Smoking, COPD, CAD, Cancer, CVA, ARF, Chemo, Hep., AIDS, mental health diagnosis, sleep apnea, morbid obesity)? @ -[None] Was patient admitted / discharged? Hospital course, mention meds given and route, prescriptions, significant lab abnormalities, going to OR and other pertinent info. @ This is a 41-year-old patient presenting with migraine. Patient given migraine cocktail with droperidol. Patient actually requested to go home, states she is feeling better. She'll be discharged with instruction to follow-up with her neurologist. Undiagnosed new problem with uncertain prognosis? @ -[No] Drug Therapy requiring intensive monitoring for toxicity (Heparin, Nitro, Insulin, Cardizem)? @ -[No] Were any procedures done? @ -[No] Diagnosis/symptom? @ migraine Acute, or Chronic, or Acute on Chronic? @ -acute Uncomplicated (without systemic symptoms) or Complicated (systemic symptoms)? @-uncomplicated Side effects of treatment? @ -[No] Exacerbation, Progression, or Severe Exacerbation? @ -[No] Poses a threat to life or bodily function? How? (Chest pain, [place], [place], pneumonia, PE, COPD, DKA, ARF, appy, cholecystitis, CVA, Diverticulitis, Homicidal, Suicidal, threat to staff... and all critical care pts) @ -[No] Dr. Tony is my attending - Lab Data Lab Results 11/08/22 Range/Units 11:13 Influenza Type A (PCR) Not Detected (Not Detectd) Influenza Type B (PCR) Not Detected (Not Detectd) RSV (PCR) Not Detected (Not Detectd) SARS-CoV-2 (PCR) Not Detected (Not Detectd) Disposition Clinical Impression: Migraine headache Disposition: HOME SELF-CARE Instructions (If sedation given, give patient instructions): Migraine Headache (ED) Additional Instructions: Follow-up with neurologist in one to 2 days. Return to the emergency department if you experience new, concerning, or worsening symptoms. Is patient prescribed a controlled substance at d/c from ED?: No Referrals: None,Stated [Primary Care Provider] - 1-2 days Time of Disposition: 11:57
[2022-11-08 12:04] VITALS: BP 139/91; PULSE 67; RESP 18
== END 2022-11-08 12:04 | disposition home or self-care (01) ==
LOC: EC 10:37
DX: G43.909 Migraine, unspecified, not intractable, without status migrainosus (principal); I10 Essential (primary) hypertension; G40.909 Epilepsy, unspecified, not intractable, without status epilepticus; F12.90 Cannabis use, unspecified, uncomplicated; F17.200 Nicotine dependence, unspecified, uncomplicated; Z20.822 Contact with and (suspected) exposure to COVID-19; Z79.899 Other long term (current) drug therapy
CPT/HCPCS: 96375 ×2; 96374 ×2; 99284 ×2; 87636; J1200; J1100; J2405; J1885; J1790; 99283

== ENCOUNTER 2023-02-18 14:49 | Emergency (ER) | payer OTHER ==
[2023-02-18 15:04] VITALS: TEMP 98
[2023-02-18 15:23] VITALS: RESP 16
[2023-02-18] MEDS ORDERED: HYDROmorphone 1 MG/ML 1 ML SYRINGE IM STA (15:38)
[2023-02-18] MEDS ORDERED: METOCLOPRAMIDE 5 MG/ML 2 ML VIAL IM STA (15:38)
--- NOTE | 2023-02-18 15:44 | ED ---
General Adult HPI - General Chief complaint: Headache Stated complaint: Headache Time Seen by Provider: 02/18/23 15:18 Source: patient, family, RN notes reviewed Mode of arrival: ambulatory Limitations: no limitations - History of Present Illness Initial comments: Patient is a pleasant 42-year-old female presenting to the emergency Department with complaints of headache. Patient does have chronic headaches for many years and does see a specialist. Headache is similar to previous. Patient tried several medications at home including Motrin 800, fevers at 2, and Imitrex 2. Patient does have some nausea. Mild photophobia. Headache is similar to previous. No weakness or confusion. No visual change. No fever. Patient states Toradol and Benadryl do not work well on her. - Related Data Home Medications Medication Instructions Recorded Confirmed FLUoxetine HCL [PROzac] 10 mg PO DAILY 06/22/21 02/28/22 Butalb/APAP/Caff 50-325-40Mg 1 tab PO Q6H PRN 01/28/22 02/28/22 [Fioricet 50-325-40] Diphenoxylate HCl/Atropine 1 tab PO TID PRN 01/28/22 02/28/22 [Lomotil 2.5-0.025 mg Tablet] FLUoxetine HCL [PROzac] 20 mg PO DAILY 01/28/22 02/28/22 Omeprazole 40 mg PO DAILY 01/28/22 02/28/22 SUMAtriptan succinate [Imitrex] 50 mg PO DAILY PRN 01/28/22 02/28/22 lamoTRIgine [LaMICtal] 200 mg PO BID 01/28/22 02/28/22 methocarbamoL [Robaxin-750] 750 mg PO BID PRN 01/28/22 02/28/22 Aimovig Unknown Dose 1 injection SQ Q30D 02/28/22 02/28/22 Gabapentin 600 mg PO TID 02/28/22 02/28/22 Previous Rx's Medication Instructions Recorded Butalb/APAP/Caff 50-325-40Mg 1 tab PO Q4H PRN #30 tablet 02/28/22 [Fioricet 50-325-40] Allergies Allergy/AdvReac Type Severity Reaction Status Date / Time cortisone AdvReac causes Verified 02/18/23 15:03 increased pain divalproex sodium AdvReac Vomiting Verified 02/18/23 15:03 [From Depakote] Review of Systems ROS Statement: Those systems with pertinent positive or pertinent negative responses have been documented in the HPI. ROS Other: All systems not noted in ROS Statement are negative. Constitutional: Denies: fever Eyes: Denies: eye pain ENT: Denies: ear pain Respiratory: Denies: cough Cardiovascular: Denies: chest pain Endocrine: Denies: fatigue Genitourinary: Denies: urgency Neurological: Reports: as per HPI, headache Past Medical History Past Medical History: Hypertension, Neurologic Disorder, Seizure Disorder Additional Past Medical History / Comment(s): migraines,. h/o lymes disease. h/o pseudotumor cerebri History of Any Multi-Drug Resistant Organisms: MRSA Date of last positivie culture/infection: 2001 MDRO Source:: head Past Surgical History: Section, Orthopedic Surgery Additional Past Surgical History / Comment(s): right foot, right shoulder, lumbar shunt, Past Anesthesia/Blood Transfusion Reactions: Motion Sickness Past Psychological History: Anxiety, Bipolar, Depression Smoking Status: Current every day smoker Past Alcohol Use History: None Reported Past Drug Use History: Marijuana - Past Family History Mother Family Medical History: No Reported History General Exam Limitations: no limitations General appearance: alert, in no apparent distress Head exam: Present: atraumatic Eye exam: Present: normal appearance, PERRL, EOMI ENT exam: Present: normal oropharynx Neck exam: Present: normal inspection Respiratory exam: Present: normal lung sounds bilaterally Cardiovascular Exam: Present: regular rate, normal rhythm GI/Abdominal exam: Present: soft. Absent: tenderness Extremities exam: Present: normal inspection Neurological exam: Present: alert, oriented X3, CN II-XII intact. Absent: motor sensory deficit Expanded Cranial nerves: EOM's Intact: Normal Motor strength exam: RUE: 5, LUE: 5, RLE: 5, LLE: 5 Eye Response: (4) open spontaneously Motor Response: (6) obeys commands Verbal Response: (5) oriented Psychiatric exam: Present: normal affect, normal mood Skin exam: Present: normal color Course Vital Signs 02/18/23 02/18/23 15:01 15:03 Temperature 98 F Pulse Rate 68 63 Respiratory 18 16 Rate Blood Pressure 131/81 136/91 O2 Sat by Pulse 99 96 Oximetry Medical Decision Making - Medical Decision Making Was pt. sent in by a medical professional or institution (, DANELLE, IT PROGRAM MANAGER, urgent care, hospital, or [facility]...) When possible be specific @ -No Did you speak to anyone other than the patient for history (EMS, parent, family, police, friend...)? What history was obtained from this source @ -No Did you review nursing and triage notes (agree or disagree)? Why? @ -I reviewed and agree with nursing and triage notes Were old charts reviewed (outside hosp., previous admission, EMS record, old EKG, old radiological studies, urgent care reports/EKG's, [facility] records)? Report findings @ -No old charts were reviewed Differential Diagnosis (chest pain, altered mental status, abdominal pain women, abdominal pain men, vaginal bleeding, weakness, fever, dyspnea, syncope, headache, dizziness, GI bleed, back pain, seizure, CVA, palpatations, mental health)? @ -Differential Headache: Migraine, tension, cluster, carbon monoxide, central venous thrombosis, pension karma temporal arteritis, acute closure glaucoma, intercranial hemorrhage, mastoiditis, sinusitis, head injury, this is not meant to be an all-inclusive list. EKG interpreted by me (3pts min.). @ -As above X-rays interpreted by me (1pt min.). @ -None done CT interpreted by me (1pt min.). @ -None done U/S interpreted by me (1pt. min.). @ -None done What testing was considered but not performed or refused? (CT, X-rays, U/S, labs)? Why? @ -None What meds were considered but not given or refused? Why? @ -I did consider IM Benadryl and Toradol however patient states they do not help her. Did you discuss the management of the patient with other professionals (professionals i.e. DANELLE Hoyt, IT PROGRAM MANAGER, lab, RT, psych nurse, social sciences lecturer, bridge maintainer, teacher, loan review officer, insurance case manager)? Give summary @ -No Was smoking cessation discussed for >3mins.? @ -No Was critical care preformed (if so, how long)? @ -No Were there social determinants of health that impacted care today? How? (Homelessness, low income, unemployed, alcoholism, drug addiction, transportation, low edu. Level, literacy, decrease access to med. care, [facility], rehab)? @ -No Was there de-escalation of care discussed even if they declined (Discuss DNR or withdrawal of care, Hospice)? DNR status @ -No What co-morbidities impacted this encounter? (DM, HTN, Smoking, COPD, CAD, Cancer, CVA, ARF, Chemo, Hep., AIDS, mental health diagnosis, sleep apnea, morbid obesity)? @ -None Was patient admitted / discharged? Hospital course, mention meds given and route, prescriptions, significant lab abnormalities, going to OR and other pertinent info. @ -Patient presents emergency Department with complaints of headaches similar to chronic headaches. Patient has normal neurological exam. Patient will receive pain medication and be discharged follow-up with her doctor Undiagnosed new problem with uncertain prognosis? @ -No Drug Therapy requiring intensive monitoring for toxicity (Heparin, Nitro, Insulin, Cardizem)? @ -No Were any procedures done? @ -No Diagnosis/symptom? @ -Cephalgia Acute, or Chronic, or Acute on Chronic? @ -Acute on chronic Uncomplicated (without systemic symptoms) or Complicated (systemic symptoms)? @ -default Side effects of treatment? @ -No Exacerbation, Progression, or Severe Exacerbation? @ -No Poses a threat to life or bodily function? How? (Chest pain, USA, [place], pneumonia, PE, COPD, DKA, ARF, appy, cholecystitis, CVA, Diverticulitis, Homicidal, Suicidal, threat to staff... and all critical care pts) @ -No Disposition Clinical Impression: Headache Disposition: HOME SELF-CARE Condition: Stable Instructions (If sedation given, give patient instructions): Acute Headache (ED) Additional Instructions: Please do follow-up to primary care physician and headache specialists in the next one to 2 days for recheck. Return for fever, increased pain, weakness, visual changes, worsening or change in symptoms or any other concerns. Is patient prescribed a controlled substance at d/c from ED?: No Referrals: Gurmeet Milton DO [Primary Care Provider] - 1-2 days Michael Cassidy MD [Medical Doctor] - 1-2 days Time of Disposition: 15:43
[2023-02-18 16:23] VITALS: BP 144/96; PULSE 86
== END 2023-02-18 16:22 | disposition home or self-care (01) ==
LOC: EC 14:49
DX: R51.9 Headache, unspecified (principal); I10 Essential (primary) hypertension; G40.909 Epilepsy, unspecified, not intractable, without status epilepticus; F31.9 Bipolar disorder, unspecified; F41.9 Anxiety disorder, unspecified; F17.200 Nicotine dependence, unspecified, uncomplicated; F12.90 Cannabis use, unspecified, uncomplicated; Z79.899 Other long term (current) drug therapy; Z88.8 Allergy status to other drugs, medicaments and biological substances
CPT/HCPCS: 99283; 96372 ×2; J2765; J1170

== ENCOUNTER → 2023-04-22 | Outpatient (CLI) | payer MEDICARE, OTHER ==
--- NOTE | 2023-04-22 10:18 | CT ---
EXAMINATION TYPE: CT brain wo con DATE OF EXAM: 04/22/2023 COMPARISON: CT brain September 18, 2021 HISTORY: Headache CT DLP: 1064.3 mGycm. Automated Exposure Control for Dose Reduction was Utilized. TECHNIQUE: CT scan of the head is performed without contrast. FINDINGS: There is no acute intracranial hemorrhage, mass effect, or midline shift identified. The ventricles and sulci are within normal limits in size. Woodruff-white matter differentiation is maintain ed. The globes are intact and the visualized sinuses are clear. The calvarium is intact. IMPRESSION: No acute intracranial hemorrhage, mass effect, or midline shift is seen. Unremarkable st udy. No significant change from most recent prior.
--- NOTE | 2023-04-22 10:40 | CT ---
EXAMINATION TYPE: CT cervical spine wo con DATE OF EXAM: 04/22/2023 COMPARISON: CT cervical spine October 17, 2016 HISTORY: Neck pain and degenerative disc disease CT DLP: 45.8 mGycm. Automated Exposure Control for Dose Reduction was Utilized. TECHNIQUE: CT scan of the cervical spine is obtained without contrast, axial images are obtained, sa gittal and coronal reformatted images are also reviewed. FINDINGS: Cervical spine is redemonstrated in its entirety from C1 through upper thoracic levels, dem onstrates satisfactory alignment without evidence of acute fracture or dislocation. Prevertebral sof t tissue appears within normal limits. The C1-C2 articulation is within normal limits on the coronal images. Vertebral body heights and disc space heights are preserved. Some artifact related to patien t's body habitus is seen. Spinal canal grossly preserved. Mild multilevel anterior spurring at C4-C5 through C6-C7 levels is slightly progressed from 2016 study. Review of axial images shows no significant spinal canal stenosis or neural foraminal narrowing at an y cervical level. Thyroid gland is felt within normal limits. Visualized lung apices are clear. IMPRESSION: As above. No acute findings are evident.
--- NOTE | 2023-04-22 10:45 | CT ---
EXAMINATION TYPE: CT lumbar spine wo con DATE OF EXAM: 04/22/2023 9:48 AM COMPARISON: None. HISTORY: Low back pain. CT DLP: 2144 mGycm Automated exposure control for dose reduction was used. Unenhanced CT of the lumbar spine was performed. Bone and soft tissue window settings are submitted as well as coronal and sagittal reconstructions. There are 5 lumbar-type vertebra. Lumbar spine shows satisfactory alignment without evidence of acute fracture or dislocation. Vertebral body heights and disc space heights are maintained. There is a st imulator device entering the lumbar spinal canal at posterior L1-L2 level and then looping within the spinal canal before terminating the central L3 level axial image 46. No large disc herniations are p resent. Review of axial images shows no significant abnormality. Spinal canal is grossly preserved. Bilateral neural foramina are patent. Paraspinal muscle bulk is maintained. IMPRESSION: As above.
== END | disposition home or self-care (01) ==
LOC: RADCTMAIN 08:47
PROVIDERS: ATTEND Psychiatry & Neurology Neurology
DX: M51.36 Other intervertebral disc degeneration, lumbar region (principal); M50.30 Other cervical disc degeneration, unspecified cervical region; G43.909 Migraine, unspecified, not intractable, without status migrainosus; G93.2 Benign intracranial hypertension; M99.73 Connective tissue and disc stenosis of intervertebral foramina of lumbar region; Z98.2 Presence of cerebrospinal fluid drainage device
CPT/HCPCS: 70450; 72125; 72131

== ENCOUNTER → 2023-10-01 | Outpatient (CLI) | payer MEDICARE, OTHER ==
--- NOTE | 2023-10-01 10:35 | CT ---
EXAMINATION TYPE: CT abdomen pelvis wo con DATE OF EXAM: 10/01/2023 HISTORY: right flank pain x8 months CT DLP: 2739.3 mGycm. Automated Exposure Control for Dose Reduction was Utilized. TECHNIQUE: CT scan of the abdomen and pelvis is performed without oral or IV contrast. COMPARISON: Prior CT abdomen and pelvis June 22, 2021 FINDINGS: Within the limitations of a non-contrast study, the following observations are made. LUNG BASES: No significant abnormality is appreciated. LIVER/GB: No significant abnormality is appreciated. PANCREAS: No significant abnormality is seen. SPLEEN: No significant abnormality is seen. ADRENALS: No significant abnormality is seen. KIDNEYS: Nonobstructing 6 mm calculus right kidney lower pole level coronal image 48 redemonstrated.. Additional one to 2 punctate 1 to 2 mm right renal calculi felt present. No right-sided hydronephros is. Persistent few tiny adjacent calculi lower pole left kidney measuring up to 3 mm in size axial im age 66. There is 4 mm calculus upper pole left kidney axial image 54 redemonstrated Current study has 5 mm calculus in the proximal left ureter axial image 66 without significant left-sided hydronephros is. No intraluminal calculi within poorly distended bladder. BOWEL: No significant abnormality is seen. GENITAL ORGANS: No gross abnormality seen. LYMPH NODES: No greater than 1cm abdominal or pelvic lymph nodes are appreciated. OSSEOUS STRUCTURES: Persistent lower thoracic spinal canal catheter extending to thin walled fluid co llection in the anterior right abdominal wall. OTHER: No significant additional abnormality is seen. IMPRESSION: Nonobstructing bilateral nephrolithiasis redemonstrated. There is now 5 mm calculus in th e proximal left ureter without significant left-sided hydronephrosis.
== END | disposition home or self-care (01) ==
LOC: RADCTMAIN 09:22
PROVIDERS: ATTEND Family Medicine
DX: N20.2 Calculus of kidney with calculus of ureter (principal)
CPT/HCPCS: 74176

== ENCOUNTER 2023-10-06 14:52 | Emergency (ER) | payer MEDICARE ==
[2023-10-06 15:17] VITALS: PULSE 75; RESP 16; TEMP 98.6
[2023-10-06 15:26] LABS: Anisocytosis Slight; Basophils % (A) 0 %; Eosinophils # (A) 0.1 k/uL (0-0.7); Eosinophils % (A) 1 %; HCT 33.1 % (34.0-46.0); HGB 10.5 gm/dL (11.4-16.0); Hypochromasia Slight; Lymphocytes # (A) 2.3 k/uL (1.0-4.8); Lymphocytes % (A) 18 %; MCH 28.1 pg (25.0-35.0); MCHC 31.8 g/dL (31.0-37.0); MCV 88.4 fL (80.0-100.0); Mean Platelet Volume 9.1; Monocytes # (A) 0.3 k/uL (0-1.0); Monocytes % (A) 2 %; Neutrophils % (A) 77 %; Platelet Count 326 k/uL (150-450); RBC 3.75 m/uL (3.80-5.40); RDW 16.7 % (11.5-15.5)
[2023-10-06 15:46] LABS: ALT 17 U/L (4-34); AST 19 U/L (14-36); African American GFR (CKD) >90 (>60 ml/min/1.73 sqM); Albumin 4.3 g/dL (3.5-5.0); Alkaline Phosphatase 132 U/L (38-126); Amylase 55 U/L (30-110); Anion Gap 13 mmol/L; Blood Urea Nitrogen 16 mg/dL (7-17); Calcium 9.2 mg/dL (8.4-10.2); Carbon Dioxide 20 mmol/L (22-30); Chloride 106 mmol/L (98-107); Glucose 97 mg/dL (74-99); Lipase 68 U/L (23-300); Non-African American GFR(CKD) 88 (>60 ml/min/1.73 sqM); Sodium 139 mmol/L (137-145); Total Bilirubin 0.3 mg/dL (0.2-1.3); Total Protein 7.6 g/dL (6.3-8.2)
[2023-10-06 15:48] LABS: Mucus,Urine Moderate /hpf; RBC,Urine 9 /hpf (0-5); Squamous Epithelial Cell,Urine 9 /hpf (0-4); WBC,Urine 2 /hpf (0-5)
[2023-10-06 15:52] LABS: Appearance,Urine Clear (Clear); Bilirubin,Urine Negative (Negative); Blood,Urine Trace (Negative); Color,Urine Yellow; Glucose,Urine (UA) Negative (Negative); Ketones,Urine Negative (Negative); Protein,Urine 1+ (Negative)
[2023-10-06 15:53] LABS: Leukocyte Esterase,Urine Negative (Negative); Nitrite,Urine Negative (Negative); Urobilinogen,Urine <2.0 mg/dL (<2.0)
--- NOTE | 2023-10-06 16:14 | ED ---
Abdominal Pain HPI - General Source: patient, RN notes reviewed Mode of arrival: ambulatory Limitations: no limitations <Cailin Sidhu - Last Filed: 10/06/23 16:13> <Marlen Hassan - Last Filed: 10/06/23 19:59> - General Chief Complaint: Abdominal Pain Stated Complaint: side/back pain-poss kidney stones Time Seen by Provider: 10/06/23 16:13 - History of Present Illness Initial Comments: Patient is a 42-year-old female presented ER with chief complaint of right sided abdominal pain. Patient does have a history of kidney stones. Patient states she was seen here last week and pain has just persisted and even worsened. Patient denies any fevers or chills. (Cailin Sidhu) 42-year-old female presents to the emergency department chief complaint of right flank pain that radiates to her groin. She does report a history of kidney stones and states this feels similar. She states that she was seen by her primary care provider for hematuria 2 weeks ago which is since resolved. She notes that the flank pain continues and seems to be worse today. She admits to nausea without vomiting. Denies fever, chills. She has not seen urology for this. (Marlen Hassan) - Related Data Home Medications Medication Instructions Recorded Confirmed FLUoxetine HCL [PROzac] 10 mg PO DAILY 06/22/21 02/28/22 Butalb/APAP/Caff 50-325-40Mg 1 tab PO Q6H PRN 01/28/22 02/28/22 [Fioricet 50-325-40] Diphenoxylate HCl/Atropine 1 tab PO TID PRN 01/28/22 02/28/22 [Lomotil 2.5-0.025 mg Tablet] FLUoxetine HCL [PROzac] 20 mg PO DAILY 01/28/22 02/28/22 Omeprazole 40 mg PO DAILY 01/28/22 02/28/22 SUMAtriptan succinate [Imitrex] 50 mg PO DAILY PRN 01/28/22 02/28/22 lamoTRIgine [LaMICtal] 200 mg PO BID 01/28/22 02/28/22 methocarbamoL [Robaxin-750] 750 mg PO BID PRN 01/28/22 02/28/22 Aimovig Unknown Dose 1 injection SQ Q30D 02/28/22 02/28/22 Gabapentin 600 mg PO TID 02/28/22 02/28/22 Previous Rx's Medication Instructions Recorded Butalb/APAP/Caff 50-325-40Mg 1 tab PO Q4H PRN #30 tablet 02/28/22 [Fioricet 50-325-40] HYDROcodone/APAP 5-325MG [Boaz 1 tab PO Q6HR PRN 3 Days #12 tab 10/06/23 5-325] Allergies Allergy/AdvReac Type Severity Reaction Status Date / Time cortisone AdvReac causes Verified 02/18/23 15:03 increased pain divalproex sodium AdvReac Vomiting Verified 02/18/23 15:03 [From Depakote] Review of Systems ROS Other: All systems not noted in ROS Statement are negative. <Cailin Sidhu - Last Filed: 10/06/23 16:13> ROS Other: All systems not noted in ROS Statement are negative. <Marlen Hassan - Last Filed: 10/06/23 19:59> ROS Statement: Those systems with pertinent positive or pertinent negative responses have been documented in the HPI. Past Medical History Past Medical History: Hypertension, Neurologic Disorder, Seizure Disorder Additional Past Medical History / Comment(s): migraines,. h/o lymes disease. h /o pseudotumor cerebri. kidney stones History of Any Multi-Drug Resistant Organisms: MRSA Date of last positivie culture/infection: 2001 MDRO Source:: head Past Surgical History: Section, Orthopedic Surgery Additional Past Surgical History / Comment(s): right foot, right shoulder, lumbar shunt, Past Anesthesia/Blood Transfusion Reactions: Motion Sickness Past Psychological History: Anxiety, Bipolar, Depression Smoking Status: Current every day smoker Past Alcohol Use History: None Reported Past Drug Use History: Marijuana - Past Family History Mother Family Medical History: No Reported History <Cailin Sidhu - Last Filed: 10/06/23 16:13> General Exam Limitations: no limitations <Cailin Sidhu - Last Filed: 10/06/23 16:13> Limitations: no limitations General appearance: alert, in no apparent distress Head exam: Present: atraumatic, normocephalic, normal inspection Eye exam: Present: normal appearance, PERRL, EOMI. Absent: scleral icterus, conjunctival injection, periorbital swelling ENT exam: Present: normal exam, mucous membranes moist Neck exam: Present: normal inspection. Absent: tenderness, meningismus, lymphadenopathy Respiratory exam: Present: normal lung sounds bilaterally. Absent: respiratory distress, wheezes, rales, rhonchi, stridor Cardiovascular Exam: Present: regular rate, normal rhythm, normal heart sounds. Absent: systolic murmur, diastolic murmur, rubs, gallop, clicks GI/Abdominal exam: Present: soft, normal bowel sounds. Absent: distended, tenderness, guarding, rebound, rigid Extremities exam: Present: normal inspection, full ROM, normal capillary refill. Absent: tenderness, pedal edema, joint swelling, calf tenderness Back exam: Present: normal inspection. Absent: CVA tenderness (R), CVA tenderness (L) Neurological exam: Present: alert, oriented X3 Psychiatric exam: Present: normal affect, normal mood Skin exam: Present: warm, dry, intact, normal color. Absent: rash <Marlen Hassan - Last Filed: 10/06/23 19:59> - General Exam Comments Initial Comments: Visual Physical Exam Vital signs reviewed General: Well-appearing, nontoxic, no acute distress. Head: Normocephalic, atraumatic Eyes: PERRLA, EOMI ENT: Airway patent Chest: Nonlabored breathing Skin: No visual rash, normal skin tone Neuro: Alert and oriented 3 Musculoskeletal: No gross abnormalities (Cailin Sidhu) Course Vital Signs 10/06/23 15:03 Temperature 98.6 F Pulse Rate 75 Respiratory 16 Rate O2 Sat by Pulse 100 Oximetry Medical Decision Making - Lab Data Result diagrams: 10/06/23 15:20 10/06/23 15:20 <Cailin Sidhu - Last Filed: 10/06/23 16:13> - Lab Data Result diagrams: 10/06/23 15:20 10/06/23 15:20 <Marlen Hassan - Last Filed: 10/06/23 19:59> - Medical Decision Making I performed the quick note portion of the exam. Electronically signed by Cailin Sidhu PA-C (Cailin Sidhu) Was pt. sent in by a medical professional or institution (DANELLE Hoyt, PEDIATRICS PHYSICIAN, urgent care, hospital, or custodial...) When possible be specific @ -No Did you speak to anyone other than the patient for history (EMS, parent, family, police, friend...)? What history was obtained from this source @ -No Did you review nursing and triage notes (agree or disagree)? Why? @ -I reviewed and agree with nursing and triage notes Were old charts reviewed (outside hosp., previous admission, EMS record, old EKG, old radiological studies, urgent care reports/EKG's, custodial records)? Report findings @ -No old charts were reviewed Differential Diagnosis (chest pain, altered mental status, abdominal pain women, abdominal pain men, vaginal bleeding, weakness, fever, dyspnea, syncope, headache, dizziness, GI bleed, back pain, seizure, CVA, palpatations, mental health, musculoskeletal)? @ -Differential Abdominal Pain Women: Appendicitis, Cholecystitis, diverticulosis, ischemic bowel, pancreatitis, hepatitis, UTI, gastroenteritis, AAA, incarcerated hernia, bowel obstruction, constipation, inflammatory bowel, hepatitis, peptic ulcer disease, splenic infarction, perforated viscus, vulvitis, ovarian torsion, PID, kidney stone, placenta abruption, this is not meant to be an all-inclusive list EKG interpreted by me (3pts min.). @ -None X-rays interpreted by me (1pt min.). @ -None done CT interpreted by me (1pt min.). @ -CT abdomen and pelvis shows left sided 8 mm obstructing renal stone with mild hydronephrosis, multiple other stones within the left and right kidneys are nonobstructing U/S interpreted by me (1pt. min.). @ -None done What testing was considered but not performed or refused? (CT, X-rays, U/S, labs)? Why? @ -None What meds were considered but not given or refused? Why? @ -None Did you discuss the management of the patient with other professionals (professionals i.e. , PA, PEDIATRICS PHYSICIAN, lab, RT, psych nurse, social science manager, signals collector/analyst, teacher, artillery officer, case liner)? Give summary @ -No Was smoking cessation discussed for >3mins.? @ -No Was critical care preformed (if so, how long)? @ -No Were there social determinants of health that impacted care today? How? (Homelessness, low income, unemployed, alcoholism, drug addiction, transportation, low edu. Level, literacy, decrease access to med. care, senior care, rehab)? @ -No Was there de-escalation of care discussed even if they declined (Discuss DNR or withdrawal of care, Hospice)? DNR status @ -No What co-morbidities impacted this encounter? (DM, HTN, Smoking, COPD, CAD, Cancer, CVA, ARF, Chemo, Hep., AIDS, mental health diagnosis, sleep apnea, mo rbid obesity)? @ -None Was patient admitted / discharged? Hospital course, mention meds given and route, prescriptions, significant lab abnormalities, going to OR and other pertinent info. @ -Discharged. Patient presented to the emergency department chief complaint of right flank pain radiating around to her right sided abdomen. She has a history of kidney stones.X-ray studies obtained which showed WBC 13.0, hemoglobin 10.5; CMP is essentially unremarkable, negative troponin; UA shows 1+ protein, trace blood, negative nitrate, negative leukocyte esterase. Patient obtain better control with Toradol and morphine. Patient will be discharged home with pain control and follow-up to urology. Patient understands agreeable with plan. Patient stable at discharge. Case discussed with Dr. Sarmiento Undiagnosed new problem with uncertain prognosis? @ -No Drug Therapy requiring intensive monitoring for toxicity (Heparin, Nitro, Insulin, Cardizem)? @ -No Were any procedures done? @ -No Diagnosis/symptom? @ -Right flank pain, left nephrolithiasis Acute, or Chronic, or Acute on Chronic? @ -acute Uncomplicated (without systemic symptoms) or Complicated (systemic symptoms)? @ -uncomplicated Side effects of treatment? @ -No Exacerbation, Progression, or Severe Exacerbation? @ -No Poses a threat to life or bodily function? How? (Chest pain, [place], [place], pneumonia, PE, COPD, DKA, ARF, appy, cholecystitis, CVA, Diverticulitis, Homicidal, Suicidal, threat to staff... and all critical care pts) @ -No (Marlen Hassan) - Lab Data Lab Results 10/06/23 10/06/23 10/06/23 Range/Units 15:06 15:06 15:20 WBC 13.0 H (3.8-10.6) k/uL RBC 3.75 L (3.80-5.40) m/uL Hgb 10.5 L (11.4-16.0) gm/dL Hct 33.1 L (34.0-46.0) % MCV 88.4 (80.0-100.0) fL MCH 28.1 (25.0-35.0) pg MCHC 31.8 (31.0-37.0) g/dL RDW 16.7 H (11.5-15.5) % Plt Count 326 (150-450) k/uL MPV 9.1 Neutrophils % 77 % Lymphocytes % 18 % Monocytes % 2 % Eosinophils % 1 % Basophils % 0 % Neutrophils # 10.0 H (1.3-7.7) k/uL Lymphocytes # 2.3 (1.0-4.8) k/uL Monocytes # 0.3 (0-1.0) k/uL Eosinophils # 0.1 (0-0.7) k/uL Basophils # 0.0 (0-0.2) k/uL Hypochromasia Slight Anisocytosis Slight Sodium (137-145) mmol/L Potassium (3.5-5.1) mmol/L Chloride (98-107) mmol/L Carbon Dioxide (22-30) mmol/L Anion Gap mmol/L BUN (7-17) mg/dL Creatinine (0.52-1.04) mg/dL Est GFR (CKD-EPI)AfAm (>60 ml/min/1.73 sqM) Est GFR (CKD-EPI)NonAf (>60 ml/min/1.73 sqM) Glucose (74-99) mg/dL Calcium (8.4-10.2) mg/dL Total Bilirubin (0.2-1.3) mg/dL AST (14-36) U/L ALT (4-34) U/L Alkaline Phosphatase (38-126) U/L Troponin I (0.000-0.034) ng/mL Total Protein (6.3-8.2) g/dL Albumin (3.5-5.0) g/dL Amylase (30-110) U/L Lipase (23-300) U/L Urine Color Yellow Urine Appearance Clear (Clear) Urine pH 6.0 (5.0-8.0) Ur Specific Rosanky 1.030 (1.001-1.035) Urine Protein 1+ H (Negative) Urine Glucose (UA) Negative (Negative) Urine Ketones Negative (Negative) Urine Blood Trace H (Negative) Urine Nitrite Negative (Negative) Urine Bilirubin Negative (Negative) Urine Urobilinogen <2.0 (<2.0) mg/dL Ur Leukocyte Esterase Negative (Negative) Urine RBC 9 H (0-5) /hpf Urine WBC 2 (0-5) /hpf Ur Squamous Epith Cells 9 H (0-4) /hpf Urine Mucus Moderate H (None) /hpf Urine HCG, Qual Not Detected (Not Detectd) 10/06/23 10/06/23 Range/Units 15:20 15:20 WBC (3.8-10.6) k/uL RBC (3.80-5.40) m/uL Hgb (11.4-16.0) gm/dL Hct (34.0-46.0) % MCV (80.0-100.0) fL MCH (25.0-35.0) pg MCHC (31.0-37.0) g/dL RDW (11.5-15.5) % Plt Count (150-450) k/uL MPV Neutrophils % % Lymphocytes % % Monocytes % % Eosinophils % % Basophils % % Neutrophils # (1.3-7.7) k/uL Lymphocytes # (1.0-4.8) k/uL Monocytes # (0-1.0) k/uL Eosinophils # (0-0.7) k/uL Basophils # (0-0.2) k/uL Hypochromasia Anisocytosis Sodium 139 (137-145) mmol/L Potassium 4.0 (3.5-5.1) mmol/L Chloride 106 (98-107) mmol/L Carbon Dioxide 20 L (22-30) mmol/L Anion Gap 13 mmol/L BUN 16 (7-17) mg/dL Creatinine 0.83 (0.52-1.04) mg/dL Est GFR (CKD-EPI)AfAm >90 (>60 ml/min/1.73 sqM) Est GFR (CKD-EPI)NonAf 88 (>60 ml/min/1.73 sqM) Glucose 97 (74-99) mg/dL Calcium 9.2 (8.4-10.2) mg/dL Total Bilirubin 0.3 (0.2-1.3) mg/dL AST 19 (14-36) U/L ALT 17 (4-34) U/L Alkaline Phosphatase 132 H (38-126) U/L Troponin I <0.012 (0.000-0.034) ng/mL Total Protein 7.6 (6.3-8.2) g/dL Albumin 4.3 (3.5-5.0) g/dL Amylase 55 (30-110) U/L Lipase 68 (23-300) U/L Urine Color Urine Appearance (Clear) Urine pH (5.0-8.0) Ur Specific Rosanky (1.001-1.035) Urine Protein (Negative) Urine Glucose (UA) (Negative) Urine Ketones (Negative) Urine Blood (Negative) Urine Nitrite (Negative) Urine Bilirubin (Negative) Urine Urobilinogen (<2.0) mg/dL Ur Leukocyte Esterase (Negative) Urine RBC (0-5) /hpf Urine WBC (0-5) /hpf Ur Squamous Epith Cells (0-4) /hpf Urine Mucus (None) /hpf Urine HCG, Qual (Not Detectd) Disposition <Cailin Sidhu - Last Filed: 10/06/23 16:13> Is patient prescribed a controlled substance at d/c from ED?: No <Marlen Hassan - Last Filed: 10/06/23 19:59> Clinical Impression: Nephrolithiasis Disposition: HOME SELF-CARE Condition: Stable Additional Instructions: Please follow up with urology. Return to the emergency department for new or worsening symptoms. Prescriptions: HYDROcodone/APAP 5-325MG [Boaz 5-325] 1 tab PO Q6HR PRN 3 Days #12 tab PRN Reason: Pain Referrals: Gurmeet Milton DO [Primary Care Provider] - 1-2 days Luciano Barragan MD [STAFF PHYSICIAN] - 1-2 days
--- NOTE | 2023-10-06 16:49 | CT ---
EXAMINATION TYPE: CT abdomen pelvis wo con DATE OF EXAM: 10/06/2023 COMPARISON: 10/01/2023 HISTORY: Flank pain, hx renal stones CT DLP: 2432 mGycm Examination of the solid and hollow viscera is limited given the lack of contrast. FINDINGS: LUNG BASES: No evidence for nodule. No evidence for infiltrate. LIVER/GB: The gallbladder is unremarkable. No space-occupying hepatic lesion. PANCREAS: No pancreatic mass identified. No inflammatory process seen. SPLEEN: No evidence for splenomegaly. No intrasplenic lesions seen. ADRENALS: No adrenal nodules identified. No evidence for thickening. KIDNEYS: No evidence for renal mass. Obstructing calculus left UPJ measuring 8 mm resulting in mild h ydronephrosis at this time. Additional calculi seen bilaterally with 3 additional nonobstructing calc shawn left kidney. 3 nonobstructing calculi right kidney measuring up to 9.6 mm. BOWEL: Appendix has a normal appearance. No evidence of bowel obstruction. No inflammatory process. Lymph nodes: No evidence for adenopathy greater than 1 cm. Abdominal aorta: Atheromatous changes seen. No evidence for aneurysm. Genital organs: No significant abnormality. Other: Subcutaneous collection right anterior chest wall with internal brain measures 5.2 x 5.9 cm. IMPRESSION: Obstructing calculus left UPJ measuring 8 mm resulting in mild hydronephrosis at this time.
[2023-10-06] MEDS ORDERED: MORPHINE SULFATE 4 MG/ML SYRINGE IVP STA (17:42)
[2023-10-06] MEDS ORDERED: KETOROLAC 15 MG/ML 1 ML VIAL IVP STA (17:42)
[2023-10-06] MEDS ORDERED: TAMSULOSIN 0.4 MG CAP.ER.24H PO STA (19:02)
== END 2023-10-06 19:38 | disposition home or self-care (01) ==
LOC: EC 14:52
DX: N13.2 Hydronephrosis with renal and ureteral calculous obstruction (principal); I10 Essential (primary) hypertension; F31.9 Bipolar disorder, unspecified; F41.9 Anxiety disorder, unspecified; F17.200 Nicotine dependence, unspecified, uncomplicated; F12.90 Cannabis use, unspecified, uncomplicated; Z79.899 Other long term (current) drug therapy; Z88.8 Allergy status to other drugs, medicaments and biological substances
CPT/HCPCS: 99284; 96374; 96375; 36415; 80053; 82150; 83690; 84484; 85025; 81001; 81025; 74176; J2270; J1885

== ENCOUNTER → 2023-10-09 | Outpatient (CLI) | payer MEDICARE ==
--- NOTE | 2023-10-09 10:21 | XR ---
EXAMINATION TYPE: XR KUB DATE OF EXAM: 10/09/2023 HISTORY: Pain Comparison: 11/23/20 Single KUB is submitted for interpretation. Findings: Right renal calculi: None Visualized. Right ureteral calculi: 6 mm calculus lower pole Left renal calculi: None Visualized. Left ureteral calculi: None Visualized. Pelvic calcifications: None Visualized. Bowel gas pattern is unremarkable. No free air. No mass effects. IMPRESSION: 1. 6 mm calculus lower pole
== END | disposition home or self-care (01) ==
LOC: RADXRMAIN 09:58
PROVIDERS: ATTEND Urology
DX: N20.0 Calculus of kidney (principal)
CPT/HCPCS: 74018

== ENCOUNTER → 2023-11-20 | Outpatient (CLI) | payer MEDICARE, OTHER ==
--- NOTE | 2023-11-20 10:39 | XR ---
EXAMINATION TYPE: XR KUB DATE OF EXAM: 11/20/2023 Comparison: 10/09/2023 Clinical History: 42-year-old female N20.0 CALCULUS KIDNEY,N20.1 CALCULUS URETER Findings: SI joints appear symmetric and intact as is the pubic symphysis. Hips are symmetric with preserved cruzito int space. Right-sided thoracolumbar shunt catheter. The spinal component appears to be radiolucent. [address]ravi ty ball device along the right flank. There is a 7 mm calcification right mid abdomen. No significant stool burden. No dilated small bowel. Impression: A 7 mm right lower pole renal calculus.
== END | disposition home or self-care (01) ==
LOC: RADXRMAIN 09:39
PROVIDERS: ATTEND Urology
DX: N20.2 Calculus of kidney with calculus of ureter (principal)
CPT/HCPCS: 74018

== ENCOUNTER → 2023-11-27 | Outpatient (CLI) | payer MEDICARE, OTHER ==
[2023-11-27 15:12] LABS: Basophils # (A) 0.02 X 10*3/uL (0.00-0.10); Basophils % (A) 0.2 %; Eosinophils # (A) 0.12 X 10*3/uL (0.04-0.35); HCT 37.1 % (37.2-46.3); HGB 11.2 g/dL (12.0-15.0); Lymphocytes # (A) 1.86 X 10*3/uL (0.90-5.00); Lymphocytes % (A) 15.8 %; MCH 27.9 pg (27.0-32.0); MCHC 30.2 g/dL (32.0-37.0); MCV 92.5 FL (80.0-97.0); Mean Platelet Volume 10.6 FL (9.5-12.2); Monocytes # (A) 0.43 X 10*3/uL (0.20-1.00); Monocytes % (A) 3.7 %; NRBC Per 100 WBC 0 X 10*3/uL (0.00-0.01); Neutrophils # (A) 9.28 X 10*3/uL (1.80-7.70); Neutrophils % (A) 78.9 %; Platelet Count 433 X 10*3/uL (140-440); RBC 4.01 X 10*6/uL (4.10-5.20); RDW 16.2 % (11.5-14.5); WBC 11.76 X 10*3/uL (4.50-10.00)
[2023-11-27 15:28] LABS: BUN/Creat Ratio 18.36 Ratio (12.00-20.00); Blood Urea Nitrogen 20.2 mg/dL (9.0-27.0); Calcium 9.9 mg/dL (8.7-10.3); Carbon Dioxide 22.2 mmol/L (21.6-31.8); Chloride 100 mmol/L (96-109); Glucose 110 mg/dL (70-110); Potassium 4.9 mmol/L (3.5-5.5); Sodium 138 mmol/L (135-145)
[2023-11-27 19:09] LABS: Appearance,Urine Cloudy (Clear); Bacteria,Urine 1+ (None Seen); Bilirubin,Urine Negative (Negative); Blood,Urine Large (Negative); Color,Urine Dark Yellow (Yellow); Ketones,Urine Trace (Negative); Nitrite,Urine Negative (Negative); PH, Urine 5.5; Specific Gravity,Urine >1.035 (1.001-1.030)
== END | disposition home or self-care (01) ==
LOC: LABPAT 10:43
PROVIDERS: ATTEND Urology
DX: Z01.812 Encounter for preprocedural laboratory examination (principal); N20.1 Calculus of ureter
CPT/HCPCS: 36415; 80048; 81001; 85025; 87086

== ENCOUNTER 2023-12-03 07:03 | Day surgery (SDC) | payer MEDICARE, OTHER ==
[2023-11-27 15:49] VITALS: BMI 54.8
--- NOTE | 2023-12-02 12:12 | P.GSHP ---
History of Present Illness H&P Date: 12/02/23 42-year-old female who came in September with right lower quadrant pain. She had been in the emergency room had a CAT scan. The CAT scan showed bilateral renal stones. An 8 mm proximal left ureteral stone and a questionable distal stone on the right. By the time I had seen her pain on the right side was gone. KUB didn't show anything significant. We did a follow-up in October she has had severe left ureteral colic distally. A KUB showed a stone in the distal ureter. She comes for removal this distal ureteral stone on the left - Constitutional Constitutional: Denies chills, Denies fever - EENT Eyes: denies blurred vision, denies pain Ears, nose, mouth and throat: Denies headache, Denies sore throat - Cardiovascular Cardiovascular: Denies chest pain, Denies shortness of breath - Respiratory Respiratory: Denies cough, Denies 7 - Gastrointestinal Gastrointestinal: Denies abdominal pain, Denies diarrhea, Denies nausea, Denies vomiting - Genitourinary (Female) Genitourinary: Denies dysuria, Denies hematuria - Genitourinary (Male) Genitourinary: Denies dysuria, Denies hematuria - Musculoskeletal Musculoskeletal: Denies myalgias - Integumentary Integumentary: Denies pruritus, Denies rash - Neurological Neurological: Denies numbness, Denies weakness - Psychiatric Psychiatric: Denies anxiety, Denies depression - Endocrine Endocrine: Denies fatigue, Denies weight change Past Medical History Past Medical History: Hypertension, Neurologic Disorder, Seizure Disorder Additional Past Medical History / Comment(s): migraines. h/o lymes disease. h/o pseudotumor cerebri. kidney stones History of Any Multi-Drug Resistant Organisms: MRSA Date of last positivie culture/infection: 2001 MDRO Source:: head Past Surgical History: Section, Orthopedic Surgery Additional Past Surgical History / Comment(s): right foot, right shoulder, LP shunt Past Anesthesia/Blood Transfusion Reactions: Motion Sickness Past Psychological History: Anxiety, Bipolar, Depression Smoking Status: Current every day smoker Past Alcohol Use History: None Reported Past Drug Use History: Marijuana Additional Drug Use History / Comment(s): INSTRUCTED TO REFRAIN 24 HRS PRIOR TO PROCEDURE - Past Family History Mother Family Medical History: No Reported History Medications and Allergies Home Medications Medication Instructions Recorded Confirmed Type Diphenoxylate HCl/Atropine 1 tab PO TID PRN 01/28/22 11/27/23 History [Lomotil 2.5-0.025 mg Tablet] FLUoxetine HCL [PROzac] 40 mg PO DAILY 01/28/22 11/27/23 History methocarbamoL [Robaxin-750] 750 mg PO TID 01/28/22 11/27/23 History Gabapentin 600 mg PO TID 02/28/22 11/27/23 History HYDROcodone/APAP 5-325MG [[place] 1 tab PO Q6HR PRN 3 Days #12 tab 10/06/23 11/27/23 Rx 5-325] Atorvastatin [Lipitor] 10 mg PO HS 11/27/23 11/27/23 History Eszopiclone [Lunesta] 3 mg PO HS 11/27/23 11/27/23 History Pantoprazole [Protonix] 40 mg PO DAILY 11/27/23 11/27/23 History Propranolol HCl [Inderal Xl] 120 mg PO DAILY 11/27/23 11/27/23 History Rizatriptan Benzoate [Maxalt] 10 mg PO DIRECTED PRN 11/27/23 11/27/23 History Allergies Allergy/AdvReac Type Severity Reaction Status Date / Time cortisone AdvReac causes Verified 11/27/23 15:15 increased pain divalproex sodium AdvReac Vomiting Verified 11/27/23 15:15 [From Depakote] Surgical - Exam - General well developed, well nourished, no distress - Eyes normal ocular movement, no icteric - ENT no hearing loss, no congestion - Neck no masses, trachea midline - Respiratory normal respiratory effort, clear to auscultation - Abdomen Abdomen: soft, non tender, no guarding, no rigid, no rebound - Integumentary no rash, no abnormal pigmentation - Neurologic no disoriented, no combative - Psychiatric oriented to time, oriented to person, oriented to place, speech is normal, memory intact Results - Imaging Abdominal x-ray: report reviewed, image reviewed CT scan - abdomen: report reviewed, image reviewed CT scan - pelvis: report reviewed, image reviewed Assessment and Plan Assessment: Impression: Ureteral calculus left. Bilateral renal calculi. Multiple medical illnesses Recommendations: The patient comes for cystoscopy left ureteroscopy laser lithotripsy was complications have been outlined
[2023-12-03] MEDS ORDERED: LIDOCAINE 1% (10MG/ML) FOR IV START INTRADERMA PRN (07:07)
[2023-12-03] MEDS ORDERED: HYDROmorphone 0.5 MG/0.5 ML SYRINGE IVP PRN (07:07)
[2023-12-03] MEDS ORDERED: MIDAZOLAM 2 MG/2 ML VIAL IV PRN (07:07)
--- NOTE | 2023-12-03 07:28 | XR ---
EXAMINATION TYPE: XR KUB DATE OF EXAM: 12/03/2023 7:21 AM CLINICAL INDICATION:Female, 42 years old with history of Left Ureteral Stone N20.1; COMPARISON: 11/20/2023. TECHNIQUE: One radiographic view of the abdomen was obtained. FINDINGS: The bowel gas pattern is nonspecific without dilated loops of small or large bowel. There i s no evidence for organomegaly or pneumoperitoneum. The osseous structures are intact. Renal calculu s projecting over the inferior right kidney measuring up to 3 mm. Fecal material and gas are demonstr ated throughout the colon and rectum. IMPRESSION: 1. Right inferior renal calculus. 2. Nonspecific bowel gas pattern without radiographic evidence for acute process.
[2023-12-03] MEDS: ONDANSETRON 4 MG/2 ML VIAL IVP ONE (08:36)
[2023-12-03] MEDS: LACTATED RINGERS 1,000 ML IV SCH (08:36)
[2023-12-03] MEDS ORDERED: fentaNYL (PF) 50 MCG/ML 2 ML AMP ONE (08:55)
[2023-12-03] MEDS ORDERED: MIDAZOLAM 2 MG/2 ML VIAL ONE (08:55)
[2023-12-03] MEDS ORDERED: NEOSTIGMINE 1 MG/ML 10 ML VIAL ONE (08:55)
[2023-12-03] MEDS ORDERED: ROCURONIUM 10 MG/ML (5 ML VIAL) IV ONE (08:55)
[2023-12-03] MEDS ORDERED: KETAMINE HCL IN 0.9 % NACL 50 MG/5 ML SYRINGE ONE (08:55)
[2023-12-03] MEDS ORDERED: LIDOCAINE 1% INJ 10MG/ML (20 ML MDV) ONE (08:55)
[2023-12-03] MEDS ORDERED: GLYCOPYRROLATE 0.2 MG/ML 2 ML VIAL ONE (08:55)
[2023-12-03] MEDS ORDERED: PROPOFOL 10 MG/ML 20 ML VIAL IV ONE (08:55)
[2023-12-03] MEDS ORDERED: SUCCINYLCHOLINE CHLORIDE 200 MG/10 ML VIAL IV ONE (08:55)
[2023-12-03] MEDS ORDERED: ALBUTEROL HFA INHALER INHALATION ONE (08:55)
[2023-12-03] MEDS: AMPICILLIN 1,000 MG in SODIUM CHLORIDE 0.9% 50 ML IVPB PRN (08:59)
[2023-12-03] MEDS: GENTAMICIN 150 MG in SODIUM CHLORIDE 0.9% 100 ML IVPB PRN (09:10)
--- NOTE | 2023-12-03 10:02 | P.OP ---
Date of Procedure: 12/03/23 Preoperative Diagnosis: Left ureteral calculus Postoperative Diagnosis: Left ureteral calculi Procedure(s) Performed: Cystoscopy, left ureteroscopy with laser lithotripsy (2 stones) Anesthesia: JACKSONA Surgeon: Gurmeet Funez Estimated Blood Loss (ml): 0 Pathology: other Condition: stable (Stone) Disposition: PACU Indications for Procedure: The patient is 42. She presented with bilateral ureteral stones. She passed the right ureteral stone. She had a 9 mm proximal left ureteral stone that is eventually lodged in the distal ureter and causing persistent pain. She comes for ureteroscopy and laser lithotripsy left Description of Procedure: Patient brought to the operative suite. Given a general anesthetic. Placed in lithotomy position with a sterile prep and drape. Cystoscopy Foroblique lens and 21-Emirati sheath identifies normal anterior urethra. The bladder martin unremarkable. I attempted to intubate the left ureteral orifice with the 7- Emirati ureteroscope but I'm unable to do so. I then dilate the orifice with a 8 cone-tipped catheter. I then pass a 7-Emirati miniscope up to the stone just below the iliac vessels. The 375 laser probe the stone was broken into tiny pieces and flushed out of the ureter. I reenter the ureter on the left side with the ureteroscope and pass up to the area of obstruction and it is not edematous but there is another stone that has ruled out ureter. I break it into tiny pieces and flushes out of the ureter. I then pass into the mid to proximal left ureter and see no remaining stone. Pullout ureteroscopy does not identify any significant fragments or significant edema. Ureteroscope was removed. The bladder is drained. The patient is awakened and returned recovery room good condition don't fragments were recovered and sent to pathology. The patient tolerated the procedure well. Blood loss is minimal. She'll be discharged home upon recovery.
[2023-12-03 10:14] VITALS: TEMP 97.2
--- NOTE | 2023-12-03 10:28 | FL ---
EXAMINATION TYPE: FL guidance operating room Intraoperative/procedural fluoroscopic services were pro vided. Total fluoroscopy time is 17.7 seconds with a total of 1 submitted images to PACS. Please see the operative/procedural note for further details. DAP: 6.5518 Gycm2
[2023-12-03 11:14] VITALS: BP 150/74; PULSE 68; RESP 16
== END 2023-12-03 11:00 | disposition home or self-care (01) ==
LOC: OR 07:03
PROVIDERS: ATTEND Urology
DX: N20.1 Calculus of ureter (principal); I10 Essential (primary) hypertension; G40.909 Epilepsy, unspecified, not intractable, without status epilepticus; F41.9 Anxiety disorder, unspecified; F32.A Depression, unspecified; F17.200 Nicotine dependence, unspecified, uncomplicated; F12.90 Cannabis use, unspecified, uncomplicated; Z87.442 Personal history of urinary calculi; Z98.891 History of uterine scar from previous surgery; Z79.899 Other long term (current) drug therapy; Z98.890 Other specified postprocedural states
CPT/HCPCS: 81025; 82365; 74018; 52353; C1758; J2250; J0330; J2710; J2405; J2001; J3010; J1580; J0290; J2704

== ENCOUNTER 2024-04-30 14:17 | Emergency (ER) | payer MEDICARE, OTHER ==
--- NOTE | 2024-04-30 15:33 | ED ---
Abdominal Pain HPI - General Chief Complaint: Abdominal Pain Stated Complaint: Abd Pain-Sent by Dr Betts Seen by Provider: 04/30/24 15:31 Source: patient, RN notes reviewed Mode of arrival: ambulatory Limitations: no limitations - History of Present Illness Initial Comments: 43-year-old female with history of IBS, kidney stones, and bowel obstruction pre senting with left lower quadrant abdominal pain x 1 day. Describes it as a localized dull pain that is tender to touch. She has had this pain mildly and intermittently for the past 6 months but reports it worsened yesterday. States it feels similar to previous bowel obstruction 2 years ago. States she has been constipated lately, last bowel movement was this morning but was hard and small. She admits to nausea but she is able to tolerate orals. Denies fever, chills, vomiting, dysuria, urinary frequency, urinary urgency, back pain. States she has a history of a lumbar shunt. She is currently on her menstrual cycle. - Related Data Home Medications Medication Instructions Recorded Confirmed Diphenoxylate HCl/Atropine 1 tab PO TID PRN 01/28/22 12/03/23 [Lomotil 2.5-0.025 mg Tablet] FLUoxetine HCL [PROzac] 40 mg PO DAILY 01/28/22 12/03/23 methocarbamoL [Robaxin-750] 750 mg PO TID 01/28/22 12/03/23 Gabapentin 600 mg PO TID 02/28/22 12/03/23 Atorvastatin [Lipitor] 10 mg PO HS 11/27/23 12/03/23 Eszopiclone [Lunesta] 3 mg PO HS 11/27/23 12/03/23 Pantoprazole [Protonix] 40 mg PO DAILY 11/27/23 12/03/23 Propranolol HCl [Inderal Xl] 120 mg PO DAILY 11/27/23 12/03/23 Rizatriptan Benzoate [Maxalt] 10 mg PO DIRECTED PRN 11/27/23 12/03/23 Previous Rx's Medication Instructions Recorded HYDROcodone/APAP 5-325MG [[place] 1 tab PO Q6HR PRN 3 Days #12 tab 10/06/23 5-325] Cephalexin [Keflex] 500 mg PO Q12HR 7 Days #14 cap 04/30/24 Allergies Allergy/AdvReac Type Severity Reaction Status Date / Time cortisone AdvReac causes Verified 04/30/24 14:31 increased pain divalproex sodium AdvReac Vomiting Verified 04/30/24 14:31 [From Depakote] Review of Systems ROS Statement: Those systems with pertinent positive or pertinent negative responses have been documented in the HPI. ROS Other: All systems not noted in ROS Statement are negative. Past Medical History Past Medical History: Hypertension, Neurologic Disorder, Seizure Disorder Additional Past Medical History / Comment(s): IBS. migraines,. h/o lymes disease. h/o pseudotumor cerebri. kidney stones History of Any Multi-Drug Resistant Organisms: MRSA Date of last positivie culture/infection: 2001 MDRO Source:: head Past Surgical History: Section, Orthopedic Surgery Additional Past Surgical History / Comment(s): right foot, right shoulder, lumbar shunt, Past Anesthesia/Blood Transfusion Reactions: Motion Sickness Past Psychological History: Anxiety, Bipolar, Depression Smoking Status: Current every day smoker, Vaper Past Alcohol Use History: Occasional Past Drug Use History: Marijuana - Past Family History Mother Family Medical History: No Reported History General Exam Limitations: no limitations General appearance: alert, in no apparent distress Head exam: Present: atraumatic, normocephalic, normal inspection Eye exam: Present: normal appearance, PERRL, EOMI. Absent: scleral icterus, conjunctival injection, periorbital swelling ENT exam: Present: normal exam, mucous membranes moist Neck exam: Present: normal inspection. Absent: tenderness, meningismus, lymphadenopathy Respiratory exam: Present: normal lung sounds bilaterally. Absent: respiratory distress, wheezes, rales, rhonchi, stridor Cardiovascular Exam: Present: regular rate, normal rhythm, normal heart sounds. Absent: systolic murmur, diastolic murmur, rubs, gallop, clicks GI/Abdominal exam: Present: soft, tenderness (Tenderness in the left lower quadrant), normal bowel sounds. Absent: distended, guarding, rebound, rigid Extremities exam: Present: normal inspection, full ROM, normal capillary refill. Absent: tenderness, pedal edema, joint swelling, calf tenderness Back exam: Present: normal inspection. Absent: CVA tenderness (R), CVA tenderness (L) Neurological exam: Present: alert Psychiatric exam: Present: normal affect, normal mood Skin exam: Present: warm, dry, intact, normal color. Absent: rash Course Vital Signs 04/30/24 04/30/24 14:27 16:45 Temperature 97.9 F 98.3 F Pulse Rate 71 68 Respiratory 18 16 Rate Blood Pressure 168/113 154/93 O2 Sat by Pulse 99 96 Oximetry Medical Decision Making - Medical Decision Making Was pt. sent in by a medical professional or institution (, [place], [facility], urgent care, hospital, or fdc...) When possible be specific @ -[No] Did you speak to anyone other than the patient for history (EMS, parent, family, police, friend...)? What history was obtained from this source @ -[No] Did you review nursing and triage notes (agree or disagree)? Why? @ -[I reviewed and agree with nursing and triage notes] Were old charts reviewed (outside hosp., previous admission, EMS record, old EKG, old radiological studies, urgent care reports/EKG's, fdc records)? Report findings @ -[No old charts were reviewed] Differential Diagnosis (chest pain, altered mental status, abdominal pain women, abdominal pain men, vaginal bleeding, weakness, fever, dyspnea, syncope, headache, dizziness, GI bleed, back pain, seizure, CVA, palpatations, mental health, musculoskeletal)? @ -Differential Abdominal Pain Women: Appendicitis, Cholecystitis, diverticulosis, ischemic bowel, pancreatitis, hepatitis, UTI, gastroenteritis, AAA, incarcerated hernia, bowel obstruction, constipation, inflammatory bowel, hepatitis, peptic ulcer disease, splenic infarction, perforated viscus, vulvitis, ovarian torsion, PID, kidney stone, placenta abruption, this is not meant to be an all-inclusive list EKG interpreted by me (3pts min.). @ -None X-rays interpreted by me (1pt min.). @ -[None done] CT interpreted by me (1pt min.). @ -CT revealed no acute intra-abdominal process, there is bilateral nonobstructing renal calculi U/S interpreted by me (1pt. min.). @ -[None done] What testing was considered but not performed or refused? (CT, X-rays, U/S, labs)? Why? @ -[None] What meds were considered but not given or refused? Why? @ -[None] Did you discuss the management of the patient with other professionals (prof larsen i.e. , DANELLE, [facility], lab, RT, psych nurse, social sciences instructor, parachute supervisor, teacher, loans officer, briefcase sewer)? Give summary @ -[No] Was smoking cessation discussed for >3mins.? @ -[No] Was critical care preformed (if so, how long)? @ -[No] Were there social determinants of health that impacted care today? How? (Homelessness, low income, unemployed, alcoholism, drug addiction, transportation, low edu. Level, literacy, decrease access to med. care, [facility], rehab)? @ -[No] Was there de-escalation of care discussed even if they declined (Discuss DNR or withdrawal of care, Hospice)? DNR status @ -[No] What co-morbidities impacted this encounter? (DM, HTN, Smoking, COPD, CAD, Cancer, CVA, ARF, Chemo, Hep., AIDS, mental health diagnosis, sleep apnea, morbid obesity)? @ -[None] Was patient admitted / discharged? Hospital course, mention meds given and route, prescriptions, significant lab abnormalities, going to OR and other pertinent info. @ -Patient was discharged. Patient was seen and evaluated for left lower quadrant pain x 1 day. Patient is tolerating orals well. She endorses some mi ld constipation lately. Patient is afebrile and nontachycardic. Patient was given IV Reglan and morphine. Lab work including CBC, CMP, lipase, and lactic acid is remarkable for white blood cell count of 13.3 with left shift. Urine is remarkable for 1+ protein, trace ketones, large blood, greater than 182 red blood cells, 72 white blood cells. Blood is likely due to patient is on menstrual cycle. CT reveals no acute intra-abdominal process. Upon reevaluation, patient states her pain is a 0 out of 10 and she would like to be discharged at this time. Discussed this is reasonable as there is no sign of emergent etiology causing patient's symptoms. Discussed I would like to treat patient for UTI at this time due to abdominal pain and white blood cells in urine. Patient shows understanding and is agreeable to plan. Strict return parameters discussed with patient and she shows understanding and agrees. Prescribed Keflex. Advise close follow-up with PCP. Case discussed with my at tending Dr. Voss. Patient discharged in stable condition. Undiagnosed new problem with uncertain prognosis? @ -[No] Drug Therapy requiring intensive monitoring for toxicity (Heparin, Nitro, Insulin, Cardizem)? @ -[No] Were any procedures done? @ -[No] Diagnosis/symptom? @ -Urinary tract infection, left lower quadrant abdominal pain Acute, or Chronic, or Acute on Chronic? @ -Acute Uncomplicated (without systemic symptoms) or Complicated (systemic symptoms)? @ -Uncomplicated Side effects of treatment? @ -[No] Exacerbation, Progression, or Severe Exacerbation? @ -[No] Poses a threat to life or bodily function? How? (Chest pain, USA, DC, pneumonia, PE, COPD, DKA, ARF, appy, cholecystitis, CVA, Diverticulitis, Homicidal, Suicidal, threat to staff... and all critical care pts) @ -Low likelihood - Lab Data Result diagrams: 04/30/24 15:34 04/30/24 15:34 Lab Results 04/30/24 04/30/24 04/30/24 Range/Units 15:34 15:34 15:34 WBC 13.3 H (3.8-10.6) k/uL RBC 4.14 (3.80-5.40) m/uL Hgb 12.3 (11.4-16.0) gm/dL Hct 39.0 (34.0-46.0) % MCV 94.1 (80.0-100.0) fL MCH 29.7 (25.0-35.0) pg MCHC 31.5 (31.0-37.0) g/dL RDW 14.8 (11.5-15.5) % Plt Count 226 (150-450) k/uL MPV 10.6 Neutrophils % 81 % Lymphocytes % 13 % Monocytes % 3 % Eosinophils % 1 % Basophils % 0 % Neutrophils # 10.8 H (1.3-7.7) k/uL Lymphocytes # 1.8 (1.0-4.8) k/uL Monocytes # 0.4 (0-1.0) k/uL Eosinophils # 0.1 (0-0.7) k/uL Basophils # 0.0 (0-0.2) k/uL Sodium (137-145) mmol/L Potassium (3.5-5.1) mmol/L Chloride (98-107) mmol/L Carbon Dioxide (22-30) mmol/L Anion Gap mmol/L BUN (7-17) mg/dL Creatinine (0.52-1.04) mg/dL Est GFR (CKD-EPI)AfAm (>60 ml/min/1.73 sqM) Est GFR (CKD-EPI)NonAf (>60 ml/min/1.73 sqM) Glucose (74-99) mg/dL Plasma Lactic Acid Ritchie (0.7-2.0) mmol/L Calcium (8.4-10.2) mg/dL Total Bilirubin (0.2-1.3) mg/dL AST (14-36) U/L ALT (4-34) U/L Alkaline Phosphatase (38-126) U/L Total Protein (6.3-8.2) g/dL Albumin (3.5-5.0) g/dL Lipase (23-300) U/L Urine Color Light Red Urine Appearance Cloudy H (Clear) Urine pH 6.0 (5.0-8.0) Ur Specific [place] 1.027 (1.001-1.035) Urine Protein 1+ H (Negative) Urine Glucose (UA) Negative (Negative) Urine Ketones Trace H (Negative) Urine Blood Large H (Negative) Urine Nitrite Negative (Negative) Urine Bilirubin Negative (Negative) Urine Urobilinogen <2.0 (<2.0) mg/dL Ur Leukocyte Esterase Moderate H (Negative) Urine RBC >182 H (0-5) /hpf Urine WBC 72 H (0-5) /hpf Urine Mucus Many H (None) /hpf Urine HCG, Qual Not Detected (Not Detectd) 04/30/24 04/30/24 Range/Units 15:34 15:34 WBC (3.8-10.6) k/uL RBC (3.80-5.40) m/uL Hgb (11.4-16.0) gm/dL Hct (34.0-46.0) % MCV (80.0-100.0) fL MCH (25.0-35.0) pg MCHC (31.0-37.0) g/dL RDW (11.5-15.5) % Plt Count (150-450) k/uL MPV Neutrophils % % Lymphocytes % % Monocytes % % Eosinophils % % Basophils % % Neutrophils # (1.3-7.7) k/uL Lymphocytes # (1.0-4.8) k/uL Monocytes # (0-1.0) k/uL Eosinophils # (0-0.7) k/uL Basophils # (0-0.2) k/uL Sodium 139 (137-145) mmol/L Potassium 4.3 (3.5-5.1) mmol/L Chloride 107 (98-107) mmol/L Carbon Dioxide 23 (22-30) mmol/L Anion Gap 9 mmol/L BUN 18 H (7-17) mg/dL Creatinine 0.87 (0.52-1.04) mg/dL Est GFR (CKD-EPI)AfAm >90 (>60 ml/min/1.73 sqM) Est GFR (CKD-EPI)NonAf 83 (>60 ml/min/1.73 sqM) Glucose 99 (74-99) mg/dL Plasma Lactic Acid Ritchie 1.2 (0.7-2.0) mmol/L Calcium 9.5 (8.4-10.2) mg/dL Total Bilirubin 0.4 (0.2-1.3) mg/dL AST 19 (14-36) U/L ALT 15 (4-34) U/L Alkaline Phosphatase 114 (38-126) U/L Total Protein 7.5 (6.3-8.2) g/dL Albumin 4.6 (3.5-5.0) g/dL Lipase 81 (23-300) U/L Urine Color Urine Appearance (Clear) Urine pH (5.0-8.0) Ur Specific [place] (1.001-1.035) Urine Protein (Negative) Urine Glucose (UA) (Negative) Urine Ketones (Negative) Urine Blood (Negative) Urine Nitrite (Negative) Urine Bilirubin (Negative) Urine Urobilinogen (<2.0) mg/dL Ur Leukocyte Esterase (Negative) Urine RBC (0-5) /hpf Urine WBC (0-5) /hpf Urine Mucus (None) /hpf Urine HCG, Qual (Not Detectd) Disposition Clinical Impression: Left lower quadrant abdominal pain, Urinary tract infection Disposition: HOME SELF-CARE Condition: Stable Instructions (If sedation given, give patient instructions): Urinary Tract Infection in Women (ED), Abdominal Pain (ED) Additional Instructions: Please take full course of Keflex as prescribed. Please return to the Emergency Department if symptoms worsen or any other concerns. Prescriptions: Cephalexin [Keflex] 500 mg PO Q12HR 7 Days #14 cap Is patient prescribed a controlled substance at d/c from ED?: No Referrals: Gurmeet Milton DO [Primary Care Provider] - 1-2 days Time of Disposition: 17:22
[2024-04-30] MEDS: METOCLOPRAMIDE 5 MG/ML 2 ML VIAL IVP STA (15:45)
[2024-04-30] MEDS: MORPHINE SULFATE 2 MG/ML SYRINGE IVP ONE (15:48)
[2024-04-30 15:54] LABS: Appearance,Urine Cloudy (Clear); Bilirubin,Urine Negative (Negative); Blood,Urine Large (Negative); Color,Urine Light Red; Glucose,Urine (UA) Negative (Negative); Ketones,Urine Trace (Negative); Leukocyte Esterase,Urine Moderate (Negative); Mucus,Urine Many /hpf; Nitrite,Urine Negative (Negative); Protein,Urine 1+ (Negative); RBC,Urine >182 /hpf (0-5); Specific Gravity,Urine 1.027 (1.001-1.035); Urobilinogen,Urine <2.0 mg/dL (<2.0); WBC,Urine 72 /hpf (0-5)
[2024-04-30 16:02] LABS: ALT 15 U/L (4-34); AST 19 U/L (14-36); African American GFR (CKD) >90 (>60 ml/min/1.73 sqM); Albumin 4.6 g/dL (3.5-5.0); Alkaline Phosphatase 114 U/L (38-126); Anion Gap 9 mmol/L; Blood Urea Nitrogen 18 mg/dL (7-17); Calcium 9.5 mg/dL (8.4-10.2); Carbon Dioxide 23 mmol/L (22-30); Chloride 107 mmol/L (98-107); Glucose 99 mg/dL (74-99); Lipase 81 U/L (23-300); Non-African American GFR(CKD) 83 (>60 ml/min/1.73 sqM); Potassium 4.3 mmol/L (3.5-5.1); Sodium 139 mmol/L (137-145); Total Bilirubin 0.4 mg/dL (0.2-1.3); Total Protein 7.5 g/dL (6.3-8.2)
[2024-04-30 16:16] LABS: Basophils % (A) 0 %; Eosinophils # (A) 0.1 k/uL (0-0.7); Eosinophils % (A) 1 %; HGB 12.3 gm/dL (11.4-16.0); Lymphocytes # (A) 1.8 k/uL (1.0-4.8); Lymphocytes % (A) 13 %; MCH 29.7 pg (25.0-35.0); MCHC 31.5 g/dL (31.0-37.0); MCV 94.1 fL (80.0-100.0); Mean Platelet Volume 10.6; Monocytes # (A) 0.4 k/uL (0-1.0); Monocytes % (A) 3 %; Neutrophils # (A) 10.8 k/uL (1.3-7.7); Neutrophils % (A) 81 %; Platelet Count 226 k/uL (150-450); RBC 4.14 m/uL (3.80-5.40); RDW 14.8 % (11.5-15.5); WBC 13.3 k/uL (3.8-10.6)
--- NOTE | 2024-04-30 16:36 | CT ---
EXAMINATION TYPE: CT abdomen pelvis w con CT DLP: 2881.9 mGycm, Automated exposure control for dose reduction was used. DATE OF EXAM: 04/30/2024 4:17 PM COMPARISON: 10/06/2023 CLINICAL INDICATION:Female, 43 years old with history of LLQ abd pain; abd pain TECHNIQUE: Axial CT abdomen pelvis w con;Sagittal and coronal reformats were created on a separate w orkstation. Contrast used:100 mL of Isovue 300 with IV Contrast, (none if empty) Oral contrast used: without Oral Contrast (none if empty) FINDINGS: LOWER CHEST: Unremarkable ABDOMEN LIVER: Unremarkable GALLBLADDER AND BILE DUCTS: Unremarkable. PANCREAS: Unremarkable. SPLEEN: Unremarkable. ADRENAL GLANDS: Unremarkable. KIDNEYS AND URETERS: No obstructive uropathy bilateral renal calculi measuring up to 3 mm on the left and 6 cm on the right. PELVIS BLADDER: Unremarkable REPRODUCTIVE: Unremarkable. ABDOMEN & PELVIS STOMACH AND BOWEL: No evidence of bowel obstruction. The appendix is normal. PERITONEUM/RETROPERITONEUM: No evidence of pneumoperitoneum or free fluid. VASCULATURE: No evidence of aortic aneurysm. MUSCULOSKELETAL: No acute osseous abnormalities LYMPH NODES: No gross evidence for lymphadenopathy. SOFT TISSUE/ABDOMINAL WALL: Stimulator lead coils in the thecal sac. Small fluid collection coils in the right abdomen. IMPRESSION: 1. No acute intra-abdominal process. 2. Bilateral nonobstructing renal calculi.
[2024-04-30 16:47] VITALS: BP 154/93; PULSE 68; RESP 16; TEMP 98.3
== END 2024-04-30 17:34 | disposition home or self-care (01) ==
LOC: EC 14:17
DX: N39.0 Urinary tract infection, site not specified (principal); N20.0 Calculus of kidney; F17.290 Nicotine dependence, other tobacco product, uncomplicated; Z88.8 Allergy status to other drugs, medicaments and biological substances
CPT/HCPCS: 36415; 80053; 83605; 83690; 85025; 81001; 81025; 74177; 99284; 96374; 96375; J2765; J2270; Q9967

== ENCOUNTER → 2024-07-27 | Outpatient (CLI) | payer MEDICARE, OTHER ==
--- NOTE | 2024-07-27 14:09 | US ---
EXAMINATION TYPE: US kidneys/renal and bladder DATE OF EXAM: 07/27/2024 COMPARISON: CT CLINICAL INDICATION: Female, 43 years old with history of N20.0 CALCULUS OF KIDNEY; H/O renal stones, pt states on/off pain during urination EXAM MEASUREMENTS: Right Kidney: 10.9 x 4.1 x 5.2 cm Left Kidney: 11.2 x 5.7 x 5.5 cm Extremely limited exam- morbidly obese pt with overlying bowel gas and unable to tolerate probe pre ssure during exam Right Kidney: Limited views show no evidence of hydro Left Kidney: Limited views show no evidence of hydro Bladder: No obvious wall thickening or calcifications. Bilateral Jets seen: No IMPRESSION: Severely limited exam particularly for mass demonstrates no obvious hydronephrosis or nephrolithiasis [facility], Workstation: AB, 07/27/2024 2:07 PM
== END | disposition home or self-care (01) ==
LOC: RADUSWWP 12:26
PROVIDERS: ATTEND Family Medicine
DX: N13.2 Hydronephrosis with renal and ureteral calculous obstruction (principal)
CPT/HCPCS: 76770

== ENCOUNTER → 2024-08-02 | Outpatient (CLI) | payer MEDICARE ==
--- NOTE | 2024-08-02 11:21 | XR ---
EXAMINATION TYPE: XR KUB DATE OF EXAM: 08/02/2024 HISTORY: Pain Comparison: None.Single KUB is submitted for interpretation. Findings: Right renal calculi: None Visualized. Right ureteral calculi: Lower pole calculus right kidney measuring 7 x 2 mm. Left renal calculi: None Visualized. Left ureteral calculi: None Visualized. Pelvic calcifications: None Visualized. Bowel gas pattern is unremarkable. No free air. No mass effects. IMPRESSION: 1. Lower pole calculus right kidney measuring 7 x 2 mm. [facility], , 08/02/2024 11:19 AM
== END | disposition home or self-care (01) ==
LOC: RADXRMAIN 10:48
PROVIDERS: ATTEND Urology
DX: N20.0 Calculus of kidney (principal)
CPT/HCPCS: 74018

== ENCOUNTER 2024-08-11 08:29 | Day surgery (SDC) | payer MEDICARE ==
--- NOTE | 2024-08-10 11:21 | P.GSHP ---
History of Present Illness H&P Date: 08/10/24 43-year-old female with a history of recurrent calcium oxalate urolithiasis. She has been having lateral flank pain. Computed tomography scan was performed in the past identifying bilateral lower pole stones. I did a KUB identifying a 4-5 mm right lower pole stone. I could not see any stone on the left side. We discussed treatment options. She wishes something to be done. Due to the fact this is a lower pole stone I recommended ureteroscopy laser lithotripsy she comes for this procedure alternatives and discussed. Risks have been discussed. - Constitutional Constitutional: Denies chills, Denies fever - EENT Eyes: denies blurred vision, denies pain Ears, nose, mouth and throat: Denies headache, Denies sore throat - Cardiovascular Cardiovascular: Denies chest pain, Denies shortness of breath - Respiratory Respiratory: Denies cough, Denies 7 - Gastrointestinal Gastrointestinal: Denies abdominal pain, Denies diarrhea, Denies nausea, Denies vomiting - Genitourinary (Female) Genitourinary: Denies dysuria, Denies hematuria - Genitourinary (Male) Genitourinary: Denies dysuria, Denies hematuria - Musculoskeletal Musculoskeletal: Denies myalgias - Integumentary Integumentary: Denies pruritus, Denies rash - Neurological Neurological: Denies numbness, Denies weakness - Psychiatric Psychiatric: Denies anxiety, Denies depression - Endocrine Endocrine: Denies fatigue, Denies weight change Past Medical History Past Medical History: GERD/Reflux, Hypertension, Neurologic Disorder, Seizure Disorder Additional Past Medical History / Comment(s): IBS, migraines, h/o lymes disease, h/o pseudotumor cerebri, kidney stones, last seizure 1 yr. ago History of Any Multi-Drug Resistant Organisms: MRSA Date of last positivie culture/infection: 2001 MDRO Source:: head Past Surgical History: Section, Orthopedic Surgery Additional Past Surgical History / Comment(s): right foot, right shoulder, lumbar shunt, lithotripsy Past Anesthesia/Blood Transfusion Reactions: Motion Sickness Past Psychological History: No Psychological Hx Reported Smoking Status: Vaper Past Alcohol Use History: None Reported Past Drug Use History: None Reported - Past Family History Mother Family Medical History: No Reported History Medications and Allergies Home Medications Medication Instructions Recorded Confirmed Type Diphenoxylate HCl/Atropine 1 tab PO TID PRN 01/28/22 08/06/24 History [Lomotil 2.5-0.025 mg Tablet] FLUoxetine HCL [PROzac] 40 mg PO DAILY 01/28/22 08/06/24 History methocarbamoL [Robaxin-750] 750 mg PO TID 01/28/22 08/06/24 History Gabapentin 600 mg PO TID 02/28/22 08/06/24 History HYDROcodone/APAP 5-325MG [[place] 1 tab PO Q6HR PRN 3 Days #12 tab 10/06/23 08/06/24 Rx 5-325] Eszopiclone [Lunesta] 3 mg PO HS 11/27/23 08/06/24 History Propranolol HCl [Inderal Xl] 120 mg PO DAILY 11/27/23 08/06/24 History Butalb/APAP/Caff 50-325-40Mg 1 tab PO BID PRN 08/06/24 08/06/24 History [Fioricet 50-325-40] Omeprazole [PriLOSEC] 40 mg PO DAILY 08/06/24 08/06/24 History Ondansetron [Zofran] 8 mg PO TID PRN 08/06/24 08/06/24 History SUMAtriptan succinate [Imitrex] 50 mg PO DIRECTED PRN 08/06/24 08/06/24 History Allergies Allergy/AdvReac Type Severity Reaction Status Date / Time cortisone AdvReac causes Verified 08/06/24 15:22 increased pain divalproex sodium AdvReac Vomiting Verified 08/06/24 15:22 [From Depakote] Surgical - Exam - General well developed, well nourished, no distress - Eyes normal ocular movement, no icteric - ENT no hearing loss, no congestion - Neck no masses, trachea midline - Respiratory normal respiratory effort, clear to auscultation - Abdomen Abdomen: soft, non tender, no guarding, no rigid, no rebound - Integumentary no rash, no abnormal pigmentation - Neurologic no disoriented, no combative - Psychiatric oriented to time, oriented to person, oriented to place, speech is normal, memory intact Results - Imaging Abdominal x-ray: report reviewed, image reviewed CT scan - abdomen: report reviewed, image reviewed CT scan - pelvis: report reviewed, image reviewed Assessment and Plan Assessment: Impression: Active urolithiasis, right lower pole stone, 5 mm. Recommendations: The patient undergo right ureteroscopy laser lithotripsy to remove the symptomatic right stone.
[2024-08-11] MEDS: IV FLUID CONTINUATION 1,000 ML IV ONE (09:03)
--- NOTE | 2024-08-11 09:29 | XR ---
EXAMINATION TYPE: XR KUB DATE OF EXAM: 08/11/2024 8:44 AM CLINICAL INDICATION: Female, 43 years old with history of kidney stone; COMPARISON: None. TECHNIQUE: One radiographic view of the abdomen was obtained. FINDINGS: The bowel gas pattern is nonspecific without dilated loops of small or large bowel. . Fecal material and gas are demonstrated throughout the colon and rectum. There is no evidence for organomegaly or pneumoperitoneum. The osseous structures are intact. Right renal calculi measuring up to 8 mm. Tubing projects over the abdomen. IMPRESSION: 1. Right renal calculus. 2. Nonspecific bowel gas pattern without radiographic evidence for acute process. [facility], , 08/11/2024 9:27 AM
[2024-08-11] MEDS: LACTATED RINGERS 1,000 ML IV SCH (09:35)
[2024-08-11] MEDS: FAMOTIDINE 20 MG/2 ML VIAL IV STA (09:36)
[2024-08-11] MEDS: ONDANSETRON 4 MG/2 ML VIAL IVP STA (09:36)
[2024-08-11 09:38] LABS: HCT 37.5 % (34.0-46.0); HGB 11.7 gm/dL (11.4-16.0); Hypochromasia Moderate; MCH 30.4 pg (25.0-35.0); MCHC 31.3 g/dL (31.0-37.0); MCV 97.3 fL (80.0-100.0); Mean Platelet Volume 9.6; Platelet Count 283 k/uL (150-450); RBC 3.86 m/uL (3.80-5.40); RDW 13.9 % (11.5-15.5); WBC 13.1 k/uL (3.8-10.6)
[2024-08-11 09:56] LABS: African American GFR (CKD) 77 (>60 ml/min/1.73 sqM); Anion Gap 9 mmol/L; Blood Urea Nitrogen 15 mg/dL (7-17); Calcium 9.6 mg/dL (8.4-10.2); Carbon Dioxide 26 mmol/L (22-30); Chloride 105 mmol/L (98-107); Glucose 100 mg/dL (74-99); Non-African American GFR(CKD) 67 (>60 ml/min/1.73 sqM); Potassium 4.6 mmol/L (3.5-5.1); Sodium 140 mmol/L (137-145)
[2024-08-11] MEDS ORDERED: GLYCOPYRROLATE 0.2 MG/ML 2 ML VIAL ONE (10:15)
[2024-08-11] MEDS ORDERED: PROPOFOL 10 MG/ML 20 ML VIAL IV ONE (10:15)
[2024-08-11] MEDS ORDERED: fentaNYL (PF) 50 MCG/ML 2 ML AMP ONE (10:15)
[2024-08-11] MEDS ORDERED: SUCCINYLCHOLINE CHLORIDE 200 MG/10 ML VIAL IV ONE (10:15)
[2024-08-11] MEDS ORDERED: MIDAZOLAM 2 MG/2 ML VIAL ONE (10:15)
[2024-08-11] MEDS ORDERED: LIDOCAINE 1% INJ 10MG/ML (20 ML MDV) ONE (10:15)
[2024-08-11] MEDS: ceFAZolin 3 GM in SODIUM CHLORIDE 0.9% 100 ML IVPB PRN (10:20)
[2024-08-11] MEDS: IOPAMIDOL-370 100ML BTL MISCELLANE ONE (10:52)
--- NOTE | 2024-08-11 11:25 | P.OP ---
Date of Procedure: 08/11/24 Preoperative Diagnosis: right renal stones with pain Postoperative Diagnosis: same Procedure(s) Performed: cystoscopy, right ureteroscopy with laser lithotripsy Anesthesia: PATRICIA Surgeon: Gurmeet Funez Estimated Blood Loss (ml): 0 Pathology: none sent Condition: stable Disposition: PACU Indications for Procedure: patient is 43. She has kidney stone disease. She has chronic bilateral flank pain. Computed tomography scan identified a 7 mm stone on the right lower pole calyx and a 3 mm stone on the left side. A KUB subsequent is obtained several weeks later and I can see the stone on the right I cannot see the stone on the left. She comes for cystoscopy right ureteroscopy laser lithotripsy Description of Procedure: patient brought operating suite. Given a general anesthetic. Placed lithotomy position with sterile prep and drape. Cystoscopy Foroblique lens and 21-[place] sheath identifies a normal urethra. The ureteral orifices normal bladder mucosa is unremarkable. An 035 wires passed up the right ureter into the kidney. Over the wires passed [id number] reentry sheath. The inner sheath is removed. I passed the flexible ureteroscope into the collecting system. There are multiple minor calyces. I eventually identify the stone and a right mid pole calyx. With the 275 laser probe this is broken into tiny pieces. The inguinal the lower pole calyx and identify another stone proximally 5 mm. This is also broken into tiny pieces. I looked throughout the rest of the collecting system and see nothing further. I do intraoperative nephrostogram and see no remaining filling defects. I do pullout ureteroscopy in the right ureter is normal. I removed the ureteroscope and the sheath. The bladder is drained the patient is awakened and returned recovery room good condition. Blood loss is minimal. She'll be discharged home upon recovery and found the office next week.
--- NOTE | 2024-08-11 11:26 | FL ---
EXAMINATION TYPE: FL guidance operating room DATE OF EXAM: 08/11/2024 11:21 AM COMPARISON: Pre Operative Images if available both CT/MRI or plain film CLINICAL INDICATION: Female, 43 years old with history of Rt Kidney Stone; TECHNIQUE: FL guidance operating room, multiple fluoroscopic images provided for procedure. Total fluoroscopy time: 44 seconds Total submitted images to PACS: 4 DAP: 1.68 mGym2 Gycm2 uGym2 cGycm2 or equivalent. FINDINGS: Fluoroscopic images during retrograde pyelogram demonstrate contrast in the renal collecting system. There is dilation of the collecting system. No evidence of extravasation of contrast. No immediate co mplication identified. IMPRESSION: 1. No evidence for intraoperative complication. 2. Please see the operative/procedural note for further details. [facility], , 08/11/2024 11:24 AM
[2024-08-11] MEDS: diphenhydrAMINE 50 MG/ML 1 ML VIAL IVP STA (11:33)
[2024-08-11] MEDS: HYDROmorphone 0.5 MG/0.5 ML SYRINGE IVP PRN ×2 (11:51→13:05)
[2024-08-11] MEDS: MIDAZOLAM 2 MG/2 ML VIAL IV ONE (13:04)
[2024-08-11] MEDS: hydrALAZINE HCL 20 MG/ML 1 ML VIAL IVP STA (13:37)
[2024-08-11] MEDS: HYDROcodone/APAP 10-325MG 1 EACH TAB PO ONE (13:40)
[2024-08-11] MEDS: hydrALAZINE HCL 20 MG/ML 1 ML VIAL IVP PRN (14:30)
[2024-08-11] MEDS: MORPHINE SULFATE 4 MG/ML SYRINGE IVP STA (14:37)
[2024-08-11] MEDS: fentaNYL (PF) 50 MCG/ML 2 ML AMP IVP PRN (16:06)
[2024-08-11] MEDS: KETOROLAC 15 MG/ML 1 ML VIAL IVP STA (16:28)
[2024-08-11] MEDS ORDERED: DIPHENOX-ATROP 2.5-0.025 MG 1 EACH TAB PO PRN (16:32)
[2024-08-11] MEDS ORDERED: SUMAtriptan succinate 50 MG TAB PO PRN (16:32)
[2024-08-11] MEDS: HYDROmorphone 1 MG/ML 1 ML SYRINGE IVP STA (17:04)
[2024-08-11] MEDS: HYDROcodone/APAP 5-325MG 1 EACH TAB PO PRN (17:15)
--- NOTE | 2024-08-11 18:11 | XR ---
EXAMINATION TYPE: XR KUB portable DATE OF EXAM: 08/11/2024 5:41 PM CLINICAL INDICATION: Female, 43 years old with history of POST OP PAIN, RIGHT URETEROSCOPY; [facility] COMPARISON: 08/11/2024 TECHNIQUE: One radiographic view of the abdomen was obtained. FINDINGS: Underpenetrated film. The bowel gas pattern is nonspecific without dilated loops of small o r large bowel. . Fecal material and gas are demonstrated throughout the colon and rectum. There is no evidence for organomegaly or pneumoperitoneum. The osseous structures are intact. Simil ar right renal calculus in the inferior pole measuring up to 8 mm. IMPRESSION: 1. Right renal calculus remains. 2. Nonspecific bowel gas pattern without radiographic evidence for acute process. [facility], , 08/11/2024 6:09 PM
[2024-08-11] MEDS: TEMAZEPAM 15 MG CAP PO SCH (20:42)
[2024-08-11] MEDS: GABAPENTIN 300 MG CAP PO SCH (20:42)
[2024-08-11] MEDS: methocarbamoL 750 MG TAB PO SCH (21:07)
[2024-08-12] MEDS: KETOROLAC 15 MG/ML 1 ML VIAL IVP PRN (00:09)
[2024-08-12] MEDS: ONDANSETRON 4 MG/2 ML VIAL IVP PRN (00:36)
[2024-08-12] MEDS: MORPHINE SULFATE 2 MG/ML SYRINGE IVP PRN (03:13)
--- NOTE | 2024-08-12 07:09 | P.PN ---
Subjective Progress Note Date: 08/12/24 right ureteroscopy and renoscopy laser lithotripsy. This was done yesterday. 2 stones were broken. Postoperative pain that kept her in the hospital. She does have chronic pain syndrome. she is feeling better this morning but still having some pain.the KUB still shows some fragments in the lower pole that it either from the laser litho-or a stone that was unable to be accessed endoscopically Objective - Vital Signs Vital signs: Vital Signs Temp 98 F 08/12/24 03:16 Pulse 69 08/12/24 03:16 Resp 16 08/12/24 03:16 BP 139/84 08/12/24 03:16 Pulse Ox 97 08/12/24 03:16 FiO2 Intake & Output 08/11/24 08/12/24 08/12/24 18:59 06:59 18:59 Intake Total 1000 Output Total 200 Balance 1000 -200 Weight 135.5 kg 137.5 kg Intake: IV 1000 Output: Urine 200 Other: Voiding Method Toilet Toilet # Voids 1 - Labs CBC & Chem 7: 08/11/24 09:27 08/11/24 09:27 Labs: Abnormal Lab Results - Last 24 Hours (Table) 08/11/24 08/11/24 Range/Units 09:27 09:27 WBC 13.1 H (3.8-10.6) k/uL Glucose 100 H (74-99) mg/dL Assessment and Plan Assessment: impression: Status post right ureteroscopy renoscopy laser lithotripsy. Posto perative pain. Recommendations: He is having is different than the preoperative pain. This is probably just colic from ureteral manipulation. Does not quite feel ready to go home the she'll be observed another 24 hours.
[2024-08-12] MEDS: NON FORMULARY DRUG (Atogepant [Qulipta] 60 MG Tablet) PO SCH (07:53)
[2024-08-12] MEDS: FLUoxetine HCL 20 MG CAP PO SCH (08:07)
[2024-08-12] MEDS: PANTOPRAZOLE 40 MG TABLET PO SCH (08:07)
[2024-08-12] MEDS: diazePAM 5 MG TAB PO PRN (08:07)
[2024-08-12] MEDS: PROPRANOLOL LA 60 MG CAP.SA.24H PO SCH (08:07)
[2024-08-12 08:14] VITALS: RESP 17
[2024-08-12 20:42] VITALS: TEMP 97.8
[2024-08-13] MEDS: BUTALB/APAP/CAFF 50-325-40MG TAB PO PRN (04:42)
--- NOTE | 2024-08-13 08:14 | P.DS ---
Providers Attending physician: Gurmeet Funez Primary care physician: [facility] Course: the patient was admitted post ureteroscopy with laser lithotripsy on the right. She had post op pain that required admission for ivf and pain control She is much better this am SHe will be d/cd home and fu in the offic ein 1 week SHe will be given an rx of norco Her condition is good Patient Condition at Discharge: Good Plan - Discharge Summary Discharge Rx Participant: No New Discharge Prescriptions: No Action methocarbamoL [Robaxin-750] 750 mg PO TID Diphenoxylate HCl/Atropine [Lomotil 2.5-0.025 mg Tablet] 1 tab PO TID PRN PRN Reason: Diarrhea Eszopiclone [Lunesta] 3 mg PO HS SUMAtriptan succinate [Imitrex] 50 mg PO DIRECTED PRN PRN Reason: Headache Ondansetron [Zofran] 8 mg PO TID PRN PRN Reason: Nausea Atogepant [Qulipta] 60 mg PO DAILY FLUoxetine HCL [PROzac] 40 mg PO DAILY Gabapentin 600 mg PO TID HYDROcodone/APAP 5-325MG [[place] 5-325] 1 tab PO Q6HR PRN 3 Days #12 tab PRN Reason: Pain Propranolol HCl [Inderal Xl] 120 mg PO DAILY Butalb/APAP/Caff 50-325-40Mg [Fioricet 50-325-40] 1 tab PO BID PRN PRN Reason: Headache Omeprazole [PriLOSEC] 40 mg PO DAILY Discharge Medication List Diphenoxylate HCl/Atropine [Lomotil 2.5-0.025 mg Tablet] 1 tab PO TID PRN 01/28/22 [History] FLUoxetine HCL [PROzac] 40 mg PO DAILY 01/28/22 [History] methocarbamoL [Robaxin-750] 750 mg PO TID 01/28/22 [History] Gabapentin 600 mg PO TID 02/28/22 [History] HYDROcodone/APAP 5-325MG [[place] 5-325] 1 tab PO Q6HR PRN 3 Days #12 tab 10/06/23 [Rx] Eszopiclone [Lunesta] 3 mg PO HS 11/27/23 [History] Propranolol HCl [Inderal Xl] 120 mg PO DAILY 11/27/23 [History] Butalb/APAP/Caff 50-325-40Mg [Fioricet 50-325-40] 1 tab PO BID PRN 08/06/24 [History] Omeprazole [PriLOSEC] 40 mg PO DAILY 08/06/24 [History] Ondansetron [Zofran] 8 mg PO TID PRN 08/06/24 [History] SUMAtriptan succinate [Imitrex] 50 mg PO DIRECTED PRN 08/06/24 [History] Atogepant [Qulipta] 60 mg PO DAILY 08/11/24 [History] Follow up Appointment(s)/Referral(s): Gurmeet Funez MD [STAFF PHYSICIAN] - 1 Week Patient Instructions/Handouts: *[facility] - Cystoscopy Discharge Instructions, *[facility] - Managing Your Pain After Surgery Without Opioids, *[facility] - (Anesthesia) Discharge Instructions Outpatient Surgery, Cystoscopy (DC), Lithotripsy (DC) Activity/Diet/Wound Care/Special Instructions: tylenol or motrin for pain Discharge Disposition: HOME SELF-CARE
[2024-08-13 10:38] VITALS: BP 111/75; PULSE 79
== END 2024-08-13 11:53 | disposition home or self-care (01) ==
LOC: OR 08:29 → 3SCARD 11:18 → OR 08-13 11:53
PROVIDERS: ATTEND Urology
CPT/HCPCS: 74018; 80048; 81025; 85027

== ENCOUNTER 2025-04-26 14:46 | Emergency (ER) | payer MEDICARE ==
[2025-04-26 14:55] VITALS: RESP 18
--- NOTE | 2025-04-26 15:08 | ED ---
Headache HPI - General Source: patient, RN notes reviewed Mode of arrival: ambulatory Limitations: no limitations <Arron Vargas - Last Filed: 04/26/25 15:06> <Nia Martinez - Last Filed: 04/26/25 18:47> - General Chief Complaint: Headache Stated Complaint: Migraine Headache Time Seen by Provider: 04/26/25 14:56 - History of Present Illness Initial Comments: Quick [id number] female presents emergency room troponin with migraine headache. Patient has chronic headaches she states she is usually on Imitrex and takes Fioricet she states she has been out of her Imitrex. Patient states that Fioricet only helped somewhat she states she usually has come the hospital for treatment of her migraine headaches. Patient states this is her typical headache denies any fevers or chills no neck pain or neck stiffness (Arron Vargas) 44-year-old female history of migraines presenting to the emergency department for concerns of a headache that has been relatively persistent over the past few weeks. She states the pain is mostly located to the right side of her head and endorses associated photophobia and phonophobia. Endorses nausea with no reported emesis. Patient states that she takes Fioricet and Imitrex however took her last dose of Imitrex yesterday and is out of this medication. She states that this is her typical headache and denies new symptoms. Presenting for further evaluation. (Nia Martinez) - Related Data Home Medications Medication Instructions Recorded Confirmed Diphenoxylate HCl/Atropine 1 tab PO TID PRN 01/28/22 08/11/24 [Lomotil 2.5-0.025 mg Tablet] FLUoxetine HCL [PROzac] 40 mg PO DAILY 01/28/22 08/11/24 methocarbamoL [Robaxin-750] 750 mg PO TID 01/28/22 08/11/24 Gabapentin 600 mg PO TID 02/28/22 08/11/24 Eszopiclone [Lunesta] 3 mg PO HS 11/27/23 08/11/24 Propranolol HCl [Inderal Xl] 120 mg PO DAILY 11/27/23 08/11/24 Butalb/APAP/Caff 50-325-40Mg 1 tab PO BID PRN 08/06/24 08/11/24 [Fioricet 50-325-40] Omeprazole [PriLOSEC] 40 mg PO DAILY 08/06/24 08/11/24 Ondansetron [Zofran] 8 mg PO TID PRN 08/06/24 08/11/24 SUMAtriptan succinate [Imitrex] 50 mg PO DIRECTED PRN 08/06/24 08/11/24 Atogepant [Qulipta] 60 mg PO DAILY 08/11/24 08/11/24 Previous Rx's Medication Instructions Recorded HYDROcodone/APAP 5-325MG [[place] 1 tab PO Q6HR PRN 3 Days #12 tab 10/06/23 5-325] Allergies Allergy/AdvReac Type Severity Reaction Status Date / Time cortisone AdvReac causes Verified 04/26/25 14:55 increased pain divalproex sodium AdvReac Vomiting Verified 04/26/25 14:55 [From Depakote] Review of Systems ROS Other: All systems not noted in ROS Statement are negative. <Arron Vargas - Last Filed: 04/26/25 15:06> ROS Other: All systems not noted in ROS Statement are negative. <Nia Martinez - Last Filed: 04/26/25 18:47> ROS Statement: Those systems with pertinent positive or pertinent negative responses have been documented in the HPI. Past Medical History Past Medical History: GERD/Reflux, Hypertension, Neurologic Disorder, Seizure Disorder Additional Past Medical History / Comment(s): IBS, migraines, h/o lymes disease, h/o pseudotumor cerebri, kidney stones, last seizure 1 yr. ago History of Any Multi-Drug Resistant Organisms: MRSA Date of last positivie culture/infection: 2001 MDRO Source:: head Past Surgical History: Section, Orthopedic Surgery Additional Past Surgical History / Comment(s): right foot, right shoulder, lumbar shunt, lithotripsy Past Anesthesia/Blood Transfusion Reactions: Motion Sickness Past Psychological History: No Psychological Hx Reported Smoking Status: Vaper Past Alcohol Use History: None Reported Past Drug Use History: Marijuana - Past Family History Mother Family Medical History: No Reported History <Arron Vargas - Last Filed: 04/26/25 15:06> General Exam Limitations: no limitations <Arron Vargas - Last Filed: 04/26/25 15:06> General appearance: alert, in no apparent distress Neck exam: Present: normal inspection. Absent: tenderness, meningismus, lymphadenopathy Respiratory exam: Present: normal lung sounds bilaterally. Absent: respiratory distress, wheezes, rales, rhonchi, stridor Cardiovascular Exam: Present: regular rate, normal rhythm, normal heart sounds. Absent: systolic murmur, diastolic murmur, rubs, gallop, clicks GI/Abdominal exam: Present: soft, normal bowel sounds. Absent: distended, tenderness, guarding, rebound, rigid Extremities exam: Present: normal inspection, full ROM, normal capillary refill. Absent: tenderness, pedal edema, joint swelling, calf tenderness Back exam: Present: normal inspection Skin exam: Present: warm, dry, intact, normal color. Absent: rash <Nia Martinez - Last Filed: 04/26/25 18:47> - General Exam Comments Initial Comments: Visual Physical Exam Vital signs reviewed General: Well-appearing, nontoxic, no acute distress. Head: Normocephalic, atraumatic Eyes: PERRLA, EOMI ENT: Airway patent Chest: Nonlabored breathing Skin: No visual rash, normal skin tone Neuro: Alert and oriented 3 Musculoskeletal: No gross abnormalities (Arron Vargas) Course Vital Signs 04/26/25 04/26/25 14:52 16:46 Temperature 99.3 F 99.0 F Pulse Rate 70 54 L Respiratory 18 18 Rate Blood Pressure 171/124 171/99 O2 Sat by Pulse 98 98 Oximetry Medical Decision Making <Arron Vargas - Last Filed: 04/26/25 15:06> <Nia Martinez - Last Filed: 04/26/25 18:47> - Medical Decision Making I completed the quick note portion of this chart signed Arron Vargas PA-C (Arron Vargas) Was pt. sent in by a medical professional or institution (DANELLE Hoyt, TOY DEPARTMENT MANAGER, urgent care, hospital, or detention...) When possible be specific @ -No Did you speak to anyone other than the patient for history (EMS, parent, family, police, friend...)? What history was obtained from this source @ -No Did you review nursing and triage notes (agree or disagree)? Why? @ -I reviewed and agree with nursing and triage notes Were old charts reviewed (outside hosp., previous admission, EMS record, old EKG, old radiological studies, urgent care reports/EKG's, detention records)? Report findings @ -No old charts were reviewed Differential Diagnosis (chest pain, altered mental status, abdominal pain women, abdominal pain men, vaginal bleeding, weakness, fever, dyspnea, syncope, headache, dizziness, GI bleed, back pain, seizure, CVA, palpatations, mental health, musculoskeletal)? @ -Differential Headache: Migraine, tension, cluster, carbon monoxide, central venous thrombosis, pension karma temporal arteritis, acute closure glaucoma, intercranial hemorrhage, mastoiditis, sinusitis, head injury, this is not meant to be an all-inclusive list. EKG interpreted by me (3pts min.). @ -None X-rays interpreted by me (1pt min.). @ -None done CT interpreted by me (1pt min.). @ -None done U/S interpreted by me (1pt. min.). @ -None done What testing was considered but not performed or refused? (CT, X-rays, U/S, labs)? Why? @ -None What meds were considered but not given or refused? Why? @ -None Did you discuss the management of the patient with other professionals (professionals i.e. , PA, TOY DEPARTMENT MANAGER, lab, RT, psych nurse, social media content specialist, tanbark peeler, teacher, chief commercial officer, bilingual patient support caseworker)? Give summary @ -No Was smoking cessation discussed for >3mins.? @ -No Was critical care preformed (if so, how long)? @ -No Were there social determinants of health that impacted care today? How? (Homelessness, low income, unemployed, alcoholism, drug addiction, transportation, low edu. Level, literacy, decrease access to med. care, fdc, rehab)? @ -No Was there de-escalation of care discussed even if they declined (Discuss DNR or withdrawal of care, Hospice)? DNR status @ -No What co-morbidities impacted this encounter? (DM, HTN, Smoking, COPD, CAD, Cancer, CVA, ARF, Chemo, Hep., AIDS, mental health diagnosis, sleep apnea, morbid obesity)? @ -None Was patient admitted / discharged? Hospital course, mention meds given and route, prescriptions, significant lab abnormalities, going to OR and other pertinent info. @ -Discharge. 44-year-old presenting with migraine headache. Despite of migraine cocktail and is feeling improved is requesting discharge. Recommend she follow-up with neurology. Case discussed with my attending Dr. Ventura. Undiagnosed new problem with uncertain prognosis? @ -No Drug Therapy requiring intensive monitoring for toxicity (Heparin, Nitro, Insul in, Cardizem)? @ -No Were any procedures done? @ -No Diagnosis/symptom? @ -Migraine headache Acute, or Chronic, or Acute on Chronic? @ -Acute Uncomplicated (without systemic symptoms) or Complicated (systemic symptoms)? @ -Uncomplicated Side effects of treatment? @ -No Exacerbation, Progression, or Severe Exacerbation? @ -No Poses a threat to life or bodily function? How? (Chest pain, USA, CT, pneumonia, PE, COPD, DKA, ARF, appy, cholecystitis, CVA, Diverticulitis, Homicidal, Suicidal, threat to staff... and all critical care pts) @ -No (Nia Martinez) Disposition <Arron Vargas - Last Filed: 04/26/25 15:06> Is patient prescribed a controlled substance at d/c from ED?: No Time of Disposition: 16:21 <Nia Martinez - Last Filed: 04/26/25 18:47> Clinical Impression: Migraine headache Disposition: HOME SELF-CARE Condition: Good Instructions (If sedation given, give patient instructions): Migraine Headache (ED) Additional Instructions: Please return to the Emergency Department if symptoms worsen or any other concerns. Referrals: Gurmeet Milton DO [Primary Care Provider] - 1-2 days
[2025-04-26] MEDS: SODIUM CHLORIDE 0.9% 1,000 ML IV STA (16:00)
[2025-04-26] MEDS: diphenhydrAMINE 50 MG/ML 1 ML VIAL IVP STA (16:01)
[2025-04-26] MEDS: KETOROLAC 15 MG/ML 1 ML VIAL IVP STA (16:01)
[2025-04-26] MEDS: METOCLOPRAMIDE 5 MG/ML 2 ML VIAL IVP STA (16:01)
[2025-04-26 16:49] VITALS: BP 171/99; PULSE 54; TEMP 99
== END 2025-04-26 16:48 | disposition home or self-care (01) ==
LOC: EC 14:46
DX: G43.909 Migraine, unspecified, not intractable, without status migrainosus (principal); F17.290 Nicotine dependence, other tobacco product, uncomplicated; Z88.8 Allergy status to other drugs, medicaments and biological substances
CPT/HCPCS: 99283; 96374; 96375 ×2; 96361; J3030; J1200; J2765; J1885